=== PATIENT | female | born 1965 | race Two or more races ===

== ENCOUNTER 2024-09-13 15:07 | Outpatient (AMB) | payer OTHER, SELFPAY ==
[2024-09-13 15:08] VITALS: BP 142/100; PULSE 82
--- NOTE | 2024-09-13 15:08 | MHC.OFFVIS ---
Vital Signs 09/13/24 15:08 Weight 130 lb 8.218 oz BP 142/100 H Blood Pressure Location Lt brachial Position Sitting Pulse 82 Pulse Source Pulse Oximeter Intake Visit Reasons: OA/LM Intake Note: New patient externally referred by Ancelmo Morales NP, Internal Medicine [place]. Patient presents for +NATHAN. Location? How long? Rx used? Umbrella Supervisor Required: No Accompanied by: Self / Same As Patient Allergies No Known Allergies Allergy (Verified 09/13/24 15:13) Medication List - Last Reconciled 09/13/24 by Jojo Back MD clonazepam 1 mg PO BEDTIME trazodone 100 mg PO BEDTIME PRN HPI Comments Details: Patient is a 59-year-old female current everyday smoker with hypertension c/b CAD, hyperlipidemia, depression, history of cocaine abuse complicated by septal perforation, tachycardia on metoprolol, hematuria, and fibromyalgia here today to establish care. Patient complains of whole body pain. - hands: sometimes fingers will tighten up - Muscles: get muscle contraction - Knees: make noise and hurt. - Back - Feet Currently taking care of her elderly mom from [place]. This has been difficult for her and causes her significant stress [facility] Medical History (Updated 09/13/24 @ 16:23 by Jojo Back MD) Fibromyalgia Osteoarthritis of knees, bilateral Review of Systems Const Details: Review of Systems Constitutional: Denies fever, chills, weight loss ENT: Denies vision changes, eye pain or eye redness, dental caries, dry mouth GI: Denies nausea, vomiting, diarrhea, abdominal pain, change in BM Pulm: Denies SOB, CARDOZA, hemoptysis. Positive for wheezing Cards: Denies chest pain, palpitations Skin: Denies Raynaud's, rash, nail changes, photosensitivity, COMM[employer]CIAL [employer] ACCOUNT ASSISTANT: Denies weakness, paresthesias. Positive for headaches and falls MSK: as per HPI All other systems reviewed and are unremarkable except noted above Physical Exam Physical Examination CONSTITUITIONAL Patient alert and cooperative. Well appearing and in no apparent painful distress HEENT Conjunctiva and sclera clear. Pupils equal round and reactive to light. No lymphadenopathy. CHEST/RESPIRATORY SYSTEM Normal respiratory effort and able to speak in complete sentences. Clear to auscultation bilaterally. No crackles, rales, rhonchi, wheezes heard. CARDIAC SYSTEM Regular rate and rhythm. S1 and S2 heard no murmurs. 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 No deformities noted. No synovitis noted to the MCPs, PIPs or DIPs. No tenderness to palpation of these joints. Wrists: Full range of motion at the wrists without pain. No tenderness to palpation or synovitis noted to the wrists. Elbows: Full range of motion without pain. No tenderness, weakness, swelling, increased warmth or erythema. Shoulders: Full range of motion without pain. No tenderness, weakness, swelling, increased warmth or erythema. Hips: Full range of motion without pain. Hip bursa: No tenderness to palpation Knees: Full range of motion. No tenderness, swelling, increased warmth or erythema.?No effusion or crepitations Ankles: Full range of motion. No tenderness, swelling, increased warmth or erythema.? Feet: Negative squeeze test. No tenderness to palpation or swelling of the MTPs. Tender points:?No tenderness to palpation of the bilateral trapezius, supraspinatus, greater trochanters, anterior costochondral junctions, bilateral gluteal areas, bilateral suboccipital muscle insertions SKIN Skin intact without rashes. Results Reviewed Results Reviewed: No labs or imaging available. Assessment & Plan Assessment & Plan (1) Osteoarthritis of knees, bilateral: Code(s): M17.0 - Bilateral primary osteoarthritis of knee Category: Medical Qualifiers: Osteoarthritis type: primary Qualified Code(s): M17.0 - Bilateral primary osteoarthritis of knee Plan: #Primary OA bilateral knees Patient complain of widespread pain particularly in her hands and her knees. Knees consistent with osteoarthritis. We will check x-rays. Patient has tried topical diclofenac and gabapentin with no relief. Patient is requesting tramadol. We will prescribe tramadol 50 mg daily. Plan - XR Knees - Tramadol 50mg daily - RTC 6 months (2) Fibromyalgia: Code(s): M79.7 - Fibromyalgia Category: Medical Plan: #Fibromyalgia Patient with widespread pain, elevated widespread pain index and elevated somatic symptoms severity score. Has tried gabapentin in the past. We will trial tramadol Patient also complain of ankle pain and hand pain we will get x-rays of this. Plan I spent 45 minutes reviewing the record and labs, taking a history, examining the patient, discussing the treatment plan and documenting in the medical record Orders: Orders XR hand wrist RT Today M17.0 - Bilateral primary osteoarthritis of knee, M79.7 - Fibromyalgia XR hand wrist LT Today M17.0 - Bilateral primary osteoarthritis of knee, M79.7 - Fibromyalgia XR ankle LT min 3V Today M17.0 - Bilateral primary osteoarthritis of knee, M79.7 - Fibromyalgia XR ankle RT min 3V Today M17.0 - Bilateral primary osteoarthritis of knee, M79.7 - Fibromyalgia XR knee LT 3V Today M17.0 - Bilateral primary osteoarthritis of knee, M79.7 - Fibromyalgia XR knee RT 3V Today M17.0 - Bilateral primary osteoarthritis of knee, M79.7 - Fibromyalgia XR knee standing BI Today M17.0 - Bilateral primary osteoarthritis of knee, M79.7 - Fibromyalgia Medications: New tramadol 50 mg PO DAILY 90 tabs 1RF M17.0 - Bilateral primary osteoarthritis of knee, M79.7 - Fibromyalgia Coding Level of Care Code New Pt Level 4 (74244) Diagnoses Primary osteoarthritis of both knees M17.0 Osteoarthritis type: primary Fibromyalgia M79.7
--- OUTSIDE RECORDS SUMMARY | 2024-09-13 16:48 | XMS_ITS | Continuity of Care Document ---
Author Organization [place] - [facility], [facility] Address [address] [place] [address] Care Team Providers Care Property Claims Manager Name Role Phone SOUMYA TO Primary Care Provider Assessment No assessment recorded. Plan of Treatment Reminders Order Date Submit Date Provider Last Modified By Organization Details Last Modified Time Details Appointments None recorded. Lab None recorded. Referral None recorded. Procedures None recorded. Surgeries None recorded. Imaging None recorded. Medication Orders doxycycline hyclate [address] [facility]/Pharmacy #[id number], [address] [place], [address], 4 15:45:43 Patient TargetsNo targets recorded. Patient InstructionsNo instructions recorded. Reason for Referral None Reported. Problems Name Problem SNOMED Code Status Onset Date Resolution Date Notes Provider Name and Address Organization Details Recorded Time Disorder of nasal sinus 7052402 Active 2018 Other specified disorders of nose and nasal sinuses; Note: Date Diagnosed: 09/28/2018 11:35 AM (J34.89) Perforat ion of nasal septum NOS; Note: Date Diagnosed: 09/25/2018 2:18 PM (J34.89) ; Start Date : 09/25/2018 Not Available [facility] 4 02:17:27 Disorder of the nose 67865830 Active 2018 Other specified disorders of nose and nasal sinuses; Note: Date Diagnosed: 09/28/2018 11:35 AM (J34.89) Perforat ion of nasal septum NOS; Note: Date Diagnosed: 09/25/2018 2:18 PM (J34.89) ; Start Date : 09/25/2018 Not Available [facility] 4 02:17:28 Nasal congestion 29295506 Active 2018 Nasal congestion ; Note: Date Diagnosed: 12/12/2018 9:18 AM (R09.81) Not Available [facility] 4 02:17:58 Perforatio n of nasal septum 03992186 Active 2023 ROMEO RANKIN MD [address] [facility],[place] [address], [facility] [place], [address] , [facility] 4 15:42:30 Acute sinusitis 00351665 Active 2023 ROMEO RANKIN MD [address] [facility],[place] [address], [facility] [place], [address] , [facility] 4 15:43:55 Notes:Cocaine use, unspecifi ed Note: Date Diagnosed: 11/03/2018 3:48 PM (F14.9) Note: Date Diagnosed: 11/03/2018 3:48 PM (F14.9) Problem Notes None recorded. Procedures Surgical History Date Name Laterality Status Provider Name and Address Organization Details Recorded Time 07/31/2024 JMSNasal/S inus Endoscopy- DEBRIDEMEN T completed ROMEO RANKIN MD [address] [facility],[place] [address], [place], [address], [facility] 07/31/2024 15:42:24 Imaging Results None recorded. Procedure Notes None recorded. Medical Equipment None Reported. Medications Name Sig Start Date Stop Date Status Note LastModified by Organization Details LastModified Time bupropion HCl SR 150 mg tablet,12 hr sustained -release TAKE 1 TABLET BY MOUTH TWICE DAILY active Not Available Not Available No t Available clonidine HCl 0.1 mg tablet TAKE 1 TABLET BY MOUTH TWICE A DAY FOR 30 DAYS active Not Available Not Available No t Available venlafaxi ne ER 75 mg capsule,e xtended release 24 hr TAKE 1 CAPSULE BY MOUTH EVERY MORNING FOR ANXIETY- TAKE WITH 150MG active Not Available Not Available No t Available doxycycli ne hyclate 100 mg capsule Take 1 capsule twice a day by oral route for 14 days. active Not Available Not Available No t Available ipratropi um 0.5 mg-albute rol 3 mg (2.5 mg base)/3 mL nebulizat ion soln INHALE 3 ML (1 VIAL) VIA NEBULIZE R EVERY 6 HOURS FOR 30 DAYS active Not Available Not Available No t Available tizanidin e 2 mg tablet TAKE 1 TABLET NEEDED FOR SPASM ORALLY THREE TIMES A DAY 10 DAYS active Not Available Not Available No t Available cetirizin e 10 mg tablet TAKE 1 TABLET BY MOUTH EVERY DAY FOR 90 DAYS active Not Available Not Available No t Available ketotifen 0.025 % (0.035 %) eye drops INSTILL 1 DROP INTO BOTH EYES TWICE A DAY active Not Available Not Available No t Available senna 8.6 mg tablet TAKE 2 TABLETS BY MOUTH AT BEDTIME NEEDED FOR 30 DAYS active Not Available Not Available No t Available clonazepa m 1 mg tablet TAKE 1 TABLET BY MOUTH THREE TIMES A DAY active Not Available Not Available No t Available venlafaxi ne ER 150 mg capsule,e xtended release 24 hr TAKE 1 CAPSULE BY MOUTH EVERY DAY IN THE MORNING active Not Available Not Available No t Available omeprazol e 40 mg capsule,d elayed release TAKE 1 CAPSULE BY MOUTH EVERY DAY active Not Available Not Available No t Available tramadol 50 mg tablet TAKE 1 TABLET BY MOUTH EVERY 8 HOURS NEEDED active Not Available Not Available No t Available estradiol 1 mg tablet TAKE 1 TABLET BY MOUTH EVERY DAY active Not Available Not Available No t Available calcium 500 mg (as calcium carbonate 1,250 mg) tablet TAKE 1 TABLET BY MOUTH TWICE A DAY WITH MEALS active Not Available Not Available No t Available trazodone 100 mg tablet TAKE 1 TABLET BY MOUTH EVERYDAY AT BEDTIME active Not Available Not Available No t Available rizatript an 10 mg disintegr ating tablet PLEASE SEE ATTACHED FOR DETAILED DIRECTIO NS active Not Available Not Available No t Available lisinopri l 10 mg tablet TAKE 1 TABLET BY MOUTH EVERY DAY active Not Available Not Available No t Available lidocaine 5 % topical patch APPLY 1 PATCH DAILY EXTERNAL LY AND REMOVE AFTER 12 HOURS FOR 30 DAYS. 07/31 completed Not Available Not Available Not Available gabapenti n 300 mg capsule TAKE 1 CAPSULE BY MOUTH TWICE A DAY FOR 30 DAYS active Not Available Not Available No t Available gabapenti n 100 mg capsule TAKE 1 CAPSULE BY MOUTH THREE TIMES A DAY FOR 30 DAYS 07/31 completed Not Available Not Available Not Available metoprolo l succinate ER 25 mg tablet,ex tended release 24 hr TAKE 1 TABLET BY MOUTH EVERY DAY active Not Available Not Available No t Available ibuprofen 600 mg tablet Take 1 tablet by mouth three times a day as needed 2018 active Medicati on ID: [id number] D uration Value: 14 Prescri bed By Name: CINTIA Jennings nd Name: marti n Send Method: E-Prescr ibed Sub s Allowed: subs OK Medic ationGen ericName : ibuprofe n Not Available Not Available Not Available albuterol sulfate HFA 90 mcg/actua tion aerosol inhaler INHALE 2 PUFFS BY MOUTH EVERY 4 TO 6 HOURS NEEDED active Not Available Not Available No t Available fluticaso ne propionat e 50 mcg/actua tion nasal spray,perry pension SPRAY 1 SPRAY INTO EACH NOSTRIL EVERY DAY FOR 90 DAYS active Not Available Not Available No t Available neomycin 3.5 mg/g-poly myxin B 10,000 unit/g-de xameth 0.1 % eye oint APPLY AT BEDTIME INTO BOTH EYES active Not Available Not Available No t Available cyclospor ine 0.05 % eye drops in a dropperet te INSTILL 1 DROP INTO BOTH EYES TWICE A DAY active Not Available Not Available No t Available Symbicort 80 mcg-4.5 mcg/actua tion HFA aerosol inhaler TAKE 2 PUFFS BY MOUTH TWICE A DAY IN THE MORNING AND IN THE EVENING active Not Available Not Available No t Available Vitals Date Recorded Body height Body mass index (BMI) Body weight Provider Name and Address Organization Details Last Updated DateTime 07/31/2024 162.56 cm 21.6 kg/m2 34353.64 g Carmella Yee [place] - [facility] 07/31/2024 15:09:19 Social History None recorded. Functional Status None recorded. Mental Status None recorded. Family History Nothing Reported. Medical History Condition Response Anxiety Y Heart Attack ([place]) Y Migraines Y Hypertension Y Depression Y Asthma Y Gynecological HistoryNo gynecological history recorded. Obstetrics History GPAL:G 0 P 0 0 0 0 Past Encounters Encounter ID Performer Location Encounter Start Date Encounter Closed Date Diagnosis/Indication Diagnosis SNOMED-CT Code Diagnosis ICD10 Code Diagnosis Note [id number] ROMEO RANKIN MD [facility] [address] [address] 07/31/2024 14:32:31 07/31/2024 15:48:26 Perforation of nasal septum 20905383 J34.89 I debrided her nose endoscopic ally of crusting. No obvious sinus infection however given her pain I will treat with abx. I encouraged BID saline rinses and the use of ayr gel. Acute sinusitis 81773602 J01.90 will treat with abx Health Concerns Section Related Observation LastModified by Organization Detai ls LastModified Time None Recorded Concern Status LastModified by Organization Details LastModified Time None Recorded Payers Encounter Date Sequence Insurance Name Policy Number Policy Crabtree Covered Member ID Crabtree Member ID Guarantor Name 07/31/2024 1 [facility] - DOS ON OR AFTER 2022 - [employer] OPT[employer] (MEDICARE REPLACEMENT/ADV ANTAGE - HMO) Cindy Mckenna [id number] Cindy Mckenna Notes Date Note Type Note Provider Name and Address Organization Details Recorded Time 07/31/2024 text/html She has a history of sinus surgery. She reports for 1 year she has had trouble breathing through her nose. She has trouble eating because of mucus which comes out of her nose. Hx of cocaine use and septal perforation. ROMEO RAKNIN MD [address] [place] [address], [place], [address], [facility] - [facility] 07/31/2024 15:45:44 OBGyn Episode No OBEpisode recorded.
--- OUTSIDE RECORDS SUMMARY | 2024-09-13 16:48 | XMS_ITS | Data Portability ---
Author Organization [place] - [facility], Allergy Address [address] [place] [address] Care Team Providers Care Advertising Statistical Clerk Name Role Phone SOUMYA TO Primary Care Provider Assessment No assessment recorded. Plan of Treatment Reminders Order Date Submit Date Provider Last Modified By Organization Details Last Modified Time Details Appointments None recorded. Lab None recorded. Referral None recorded. Procedures None recorded. Surgeries None recorded. Imaging None recorded. Medication Orders doxycycline hyclate 100 mg capsule 2023 024 [facility]/Pharmacy #[id number], [address] [place], [address], 4 15:45:43 Patient TargetsNo targets recorded. Patient InstructionsNo instructions recorded. Reason for Referral None Reported. Problems Name Problem SNOMED Code Status Onset Date Resolution Date Notes Provider Name and Address Organization Details Recorded Time Disorder of nasal sinus 8523753 Active 2018 Other specified disorders of nose and nasal sinuses; Note: Date Diagnosed: 09/28/2018 11:35 AM (J34.89) Perforat ion of nasal septum NOS; Note: Date Diagnosed: 09/25/2018 2:18 PM (J34.89) ; Start Date : 09/25/2018 Not Available [facility] 4 02:17:27 Disorder of the nose 46608032 Active 2018 Other specified disorders of nose and nasal sinuses; Note: Date Diagnosed: 09/28/2018 11:35 AM (J34.89) Perforat ion of nasal septum NOS; Note: Date Diagnosed: 09/25/2018 2:18 PM (J34.89) ; Start Date : 09/25/2018 Not Available [facility] 4 02:17:28 Nasal congestion 14817651 Active 2018 Nasal congestion ; Note: Date Diagnosed: 12/12/2018 9:18 AM (R09.81) Not Available [facility] 4 02:17:58 Perforatio n of nasal septum 89233730 Active 2023 ROMEO RANKIN MD [address] [facility],[place] [address], [place], [address] , [facility] 4 15:42:30 Acute sinusitis 04972394 Active 2023 ROMEO RANKIN MD [address] [facility],[place] [address], [place], [address] , [facility] 4 15:43:55 Notes:Cocaine use, unspecifi ed Note: Date Diagnosed: 11/03/2018 3:48 PM (F14.9) Note: Date Diagnosed: 11/03/2018 3:48 PM (F14.9) Problem Notes None recorded. Procedures Surgical History Date Name Laterality Status Provider Name and Address Organization Details Recorded Time 07/31/2024 JMSNasal/S inus Endoscopy- DEBRIDEMEN T completed ROMEO RANKIN MD [address] [facility],[place] [address], [place], [address], [facility] 07/31/2024 15:42:24 Imaging Results None recorded. Procedure [...] as needed 2018 active Medicati on ID: [id number] D uration Value: 14 Prescri bed By Name: CINTIA Jennings nd Name: marti denson Send Method: E-Prescr ibed Sub s Allowed: [...] Updated DateTime 07/31/2024 162.56 cm 21.6 kg/m2 00871.64 g Carmella Yee [place] - [facility] 07/31/2024 15:09:19 Social History None recorded. Functional Status None recorded. Mental Status None recorded. Family History Nothing Reported. Medical History Condition Response Anxiety Y Heart Attack ([place]) Y Migraines Y Hypertension Y Depression Y Asthma Y Gynecological HistoryNo gynecological history recorded. Obstetrics History GPAL:G 0 P 0 0 0 0 Past Encounters Encounter ID Performer Location Encounter Start Date Encounter Closed Date Diagnosis/Indication Diagnosis SNOMED-CT Code Diagnosis ICD10 Code Diagnosis Note [id number] ROMEO RANKIN MD [facility] [address] [address] 07/31/2024 14:32:31 07/31/2024 15:48:26 Perforation of nasal septum 44402860 J34.89 I debrided her nose endoscopic ally of crusting. No obvious sinus infection however given her pain I will treat with abx. I encouraged BID saline rinses and the use of ayr gel. Acute sinusitis 08632664 J01.90 will treat with abx Health Concerns Section Related Observation LastModified by Organization Detai ls LastModified Time None Recorded Concern Status LastModified by Organization Details LastModified Time None Recorded Advance Directives Directive None Recorded Payers Encounter Date Sequence Insurance Name Policy Number Policy Crabtree Covered Member ID Crabtree Member ID Guarantor Name 07/31/2024 1 [facility] - DOS ON OR AFTER 2022 - [employer] (MEDICARE REPLACEMENT/ADV ANTAGE - HMO) Cindy Mckenna [id number] Cindy Mckenna Notes Date Note Type Note Provider Name and Address Organization Details Recorded Time 07/31/2024 text/html She has a history of sinus surgery. She reports for 1 year she has had trouble breathing through her nose. She has trouble eating because of mucus which comes out of her nose. Hx of cocaine use and septal perforation. ROMEO RANKIN MD [address] [place] [address], [place], [address], [facility] - [facility] 07/31/2024 15:45:44 OBGyn Episode No OBEpisode recorded.
--- OUTSIDE RECORDS SUMMARY | 2024-09-13 16:48 | XMS_ITS ---
Author Organization [facility] Address [address] [place] [address] Care Team Providers Care Metal Milling Machine Operator Name Role Phone SOUMYA TO Primary Care Provider REASON FOR VISIT paperwork Encounters Encounter Location Date Provider Diagnosis [facility] [address] [facility] [address] [place] [address] 06/27/2024 SOUMYA TO PLAN OF TREATMENT Next Appt Details Provider Name:SOUMYA TO, 10/08/2024 02:45:00 PM, [address] [facility], [address], [place], [address], Progress Notes * SHANTA CHAPA MDOB: 5 (58 yo F)Acc No.[id number]:06/27/2024 Patient:??SHANTA CHAPA :1965?Age:58 Y?Sex:Fe male Address:[address] [place] [address] * true * Date:??
--- OUTSIDE RECORDS SUMMARY | 2024-09-13 16:48 | XMS_ITS ---
Author Organization [facility] Address [address] [place] [address] Care Team Providers Care Industrial Editor Name Role Phone SOUMYA TO Primary Care Provider REASON FOR VISIT Urgent visit request Encounters Encounter Location Date Provider Diagnosis [facility] [address] [facility] [address] [place] [address] 08/28/2024 SOUMYA TO PLAN OF TREATMENT Next Appt Details Provider Name:SOUMYA TO, 10/08/2024 02:45:00 PM, [address] [facility], [address], [place], [address], Progress Notes * SHANTA CHAPA MDOB: 5 (59 yo F)Acc No.[id number]:08/28/2024 Patient:??SHANTA CHAPA :1965?Age:59 Y?Sex:Fe male Address:[address] [place] [address] * true * Date:??
--- OUTSIDE RECORDS SUMMARY | 2024-09-13 16:48 | XMS_ITS ---
Author Organization [facility] Address [address] [place] [address] Care Team Providers Care Manager Respiratory Name Role Phone SOUMYA TO Primary Care Provider [phone] REASON FOR VISIT [employer] Encounters Encounter Location Date Provider Diagnosis [facility] [address] [place] [address] 08/27/2024 SOUMYA TO PLAN OF TREATMENT Next Appt Details Provider Name:SOUMYA TO, 10/08/2024 02:45:00 PM, [address] [place] [address], [facility] [address], [address], Progress Notes * SHANTA CHAPA MDOB: 5 (59 yo F)Acc No.[id number]:08/27/2024 Patient:??SHANTA CHAPA :1965?Age:59 Y?Sex:Fe male Address:[address] [place] [address] * true * Date:??
--- OUTSIDE RECORDS SUMMARY | 2024-09-13 16:49 | XMS_ITS | Patient Health Record ---
Author Organization [facility] Address [address] [place] [address] Care Team Providers Care Lead Java J2Ee Developer Name Role Phone SOUMYA TO Primary Care Provider ABHIJEET DENT Unavailable [phone] ALLERGIES Allergen (clinical drug ingredient) Drug/Non Drug Allergy documented on EMR Reaction Allergy Type Onset Date Status valproate Divalproex Sodium Unknown Drug Allergy Active RESULTS Component Value Reference Range Notes URINALYSIS Reviewed date:06/07/2024 10:15:59 AM Interpretation: Performing Lab: Notes/Report: RETURN ANOTHER TIME - 06/06/24--[facility] Note Original Ordering Provider: SOUMYA TO NP [employer], a member of [address] [address] Professor Of Early Childhood Education - Jenifer Galvan MD GLUCOSE, (UA) TNP NEGATIVE mg/dL Testing not performed Reason: PATIENT UNABLE TO VOID Note Original Ordering Provider: SOUMYA TO NP [employer], a member of [address] [address] Professor Of Early Childhood Education - Jenifer Galvan MD GLYCOHEMOGLOBIN PROFILE Reviewed date:06/07/2024 07:57:07 AM Interpretation: Performing Lab: Notes/Report: GLYCATED HEMOGLOBIN A1C 5.7 <6.5 % ESTIMATED AVERAGE GLUCOSE 117 COMPREHENSIVE METABOLIC PANE L Reviewed date:06/07/2024 12:48:10 PM Interpretation: Performing Lab: Notes/Report: Note Original Orderi ng Provider: SOUMYA TO NP GLUCOSE 119 70-100 mg/dL Reference range applicable to fasting specimens only BUN 11 5-25 mg/dL CREAT 0.84 0.5-1.1 mg/dL GLOMERULAR FILTRATION RATE 81 >60 This eGFR result was calculated using the CKD-EPI 2020 Creatinine Equation SODIUM 142 135-145 mEq/L POTASSIUM 3.8 3.5-5.5 mmol/L CHLORIDE 105 96-110 mmol/L CO2 30 21-32 mmol/L ANION GAP 7 3-11 RECHECKED CALCIUM 10.4 8.5-10.5 mg/dL TOTAL PROTEIN 7.6 6.0-8.0 G/dL ALBUMIN 3.8 3.2-5.0 G/dL BILI,TOTAL 0.4 0.0-1.4 mg/dL SGOT 13 10-42 U/L SGPT 12 10-60 U/L ALK PHOS 96 42-121 U/L CBC WITH AUTO DIFF Reviewed date:06/07/2024 07:57:07 AM Interpretation: Performing Lab: Notes/Report: WBC 8.1 4.8-10.8 x10-3/uL RBC 5.0 3.8-4.8 x10-6/uL HEMOGLOBIN 14.2 11.5-16.0 g/dL HEMATOCRIT 46.6 35-47 % MCV 93.6 79-98 fL MCH 28.5 27-32 pg MCHC 30.5 32-37 g/dL RDW 13.3 11-15 % PLT COUNT 380 130-400 x10-3/uL MEAN PLATELET VOLUME 8.7 7-11 fL NRBC % AUTO 0.0 <1 % NEUT % 57.7 LYMPH % 30.7 MONO % 7.0 EOS % 3.6 BASO % 0.5 IMMATURE GRANULOCYTES % 0.5 NRBC # AUTO 0.00 <0.1 x10-3/uL ABSOLUTE NEUT 4.67 1.5-7.0 x10-3/uL LYMPH # 2.49 1-5.0 x10-3/uL MONO # 0.57 0.2-1.0 x10-3/uL EOS # 0.29 0-0.5 x10-3/uL BASO # 0.04 0-0.2 x10-3/uL IMMATURE GRANULOCYTES # 0.04 0-0.03 x10-3/uL LIPID PROFILE Reviewed date:06/07/2024 12:48:10 PM Interpretation: Performing Lab: Notes/Report: CHOLESTEROL 203 0-200 mg/dL TRIGLYCERIDES 180 0-150 mg/dL VITAMIN D, 25-HYDROXY Reviewed date:06/07/2024 12:48:10 PM Interpretation: Performing Lab: Notes/Report: VITAMIN D, 25-HYDROXY 40 30-80 ng/mL TSH Reviewed date:06/07/2024 12:48:10 PM Interpretation: Performing Lab: Notes/Report: TSH 0.34 0.40-4.00 uIU/ml TOTAL T4 Reviewed date:06/07/2024 12:48:10 PM Interpretation: Performing Lab: Notes/Report: TOTAL T4 8.2 4.5-10.9 ug/dl REASON FOR REFERRAL Reason [facility] Nasal Septal deviation and Uncontrolled Allergy Diagnosis 1 Deviated nasal septu m (J34.2) Diagnosis 2 Seasonal allergies ( J30.2) Referral Organization [place] [address] Referring Provider First Name SOUMYA Referring Provider Last Name BORHOT Referring Provider Speciality Internal M edicine Referred Provider Specialty Ear, nose an d throat surgeon General Notes YAMILETH KNUTSON 02/20 04:10:08 PM > faxed form with office notes & referral to ENT surgeons & gave pt phone # to call for appt Referral Priority Routine Reason Dr Rooney Diagnosis 1 Encounter for screen ing for malignant neoplasm of skin (Z12.83) Referral Organization [place] [address] Referring Provider First Name SOUMYA Referring Provider Last Name BORHOT Referring Provider Speciality Internal M edicine Referred Provider Specialty Dermatology General Notes YAMILETH KNUTSON 02/20 04:13:58 PM > faxed referral to Dr Rooney - gave pt phone # to call for appt p: [phone] f: [phone] Referral Priority Routine Reason Pt needing referral to ENT Diagnosis 1 Deviated nasal septu m (J34.2) Diagnosis 2 Chronic sinusitis, u nspecified (J32.9) Diagnosis 3 Seasonal allergies ( J30.2) Referral Organization [place] [address] Referring Provider First Name SOUMYA Referring Provider Last Name BORHOT Referring Provider Speciality Internal M edicine Referred Provider Specialty Ear, nose an d throat surgeon General Notes [place] [facility], [facility], [address] [place] [address], [address], [place] [address], , fax Clinical Notes Dorothy Higuera 05/04 11:51:27 AM >, Rasta Christopher 05/15/2024 04:22:16 PM > The patient is scheduled for an appointment on 07/31/2024 at 2:[address] Ollie Villa at the [place] office. I called the patient and left a detailed voicemail Referral Priority Urgent Reason [place] [facility] [place] Diagnosis 1 Primary osteoarthrit is, unspecified site (M19.91) Diagnosis 2 Fibromyalgia (M79.7) Referral Organization [facility] 119 Referring Provider First Name SOUMYA Referring Provider Last Name ZULEIKA Referring Provider Speciality Internal M edicine Referred Provider Specialty Rheumatology General Notes Aydee Garcias 06/06/2024 03:47:25 PM > Referral with attachment faxed to [place]. Jauregui [place] [facility] [place]. p: [phone] f: [phone]. Pt given number to call and schedule visit. Clinical Notes Rasta Christopher 03/2024 08:46:37 AM > Office confirmed receipt of referral. I called the patient and informed her that she can call directly to schedule an appointment with them, Rasta Christopher 06/14/2024 11:38:08 AM > Scheduled for 08/14 at 8 am. Pt aware Referral Priority Routine MEDICATIONS Medication SIG (Take, Route, Frequency, Duration) Notes Start Date End Date Status traZODone HCl 100 MG 1 tablet at bedtime Orally Once a day for 30 days Active Ventolin HFA 108 (90 Base) MCG/ACT INHALE 2 PUFFS BY MOUTH 4TIMES A DAY NEEDED for SOB Inhalation every 6 hrs for 25 Active clonazePAM 0.5 MG 1 tablet at bedtime Orally twice a day for 30 days Active Effexor XR 75 MG 1 capsule with food Orally Once a day Active Effexor XR 150 MG 1 capsule with food Orally Once a day Active tiZANidine HCl 2 MG 1 tablet as needed p rn spasm Orally Three times a day for 10 days Active Albuterol Sulfate HFA 108 (90 Base) MCG/ACT INHALE 2 PUFFS BY MOUTH 4 TIMES A DAY NEEDED FOR FOR SHORTNESS OF BREATH EVERY 6 HRS Active Gabapentin 600 MG 1 tablet Orally twic e a day for 30 days 06/06/2024 Active Oyster Shell Calcium 500 MG TAKE 1 TABLE T BY MOUTH TWICE A DAY WITH MEALS FOR 30 DAYS for 90 Active Comp Air Compressor Nebulizer - DIRECTED PRN DX ASTHMA TUBING AND MASK AND MACHIEN 30 DAYS Active Divalproex Sodium ER 500 MG 2 tablet Ora lly Once a day Active Breo Ellipta 100-25 MCG/INH 1 puff Inhal ation Once a day for 90 days 03/29/2018 Active Ipratropium-Albuterol 0.5-2.5 (3) MG/3ML INHALE 3 ML (1 VIAL) VIA NEBULIZER EVERY 6 HOURS FOR 30 DAYS for 30 Active Restasis 0.05 % 1 drop into affected eye Ophthalmic Twice a day Active Fluticasone Propionate 50 MCG/ACT 1 spray in each nostril Nasally Once a day for 90 days Active Senna-Time 8.6 MG TAKE 2 TABLETS BY [facility] AT BEDTIME NEEDED FOR 30 DAYS for 30 Active Omeprazole 40 MG TAKE 1 CAPSULE BY [facility] EVERY DAY for 90 Active buPROPion HCl ER (SR) 150 MG TAKE 1 TABLET BY MOUTH TWICE DAILY for 90 Active ZyrTEC Allergy 10 MG 1 tablet Orally Onc e a day for 90 days Active Gabapentin 100 MG 1 capsule Orally Onc e a day for 90 days Active Fluticasone Propionate 50 MCG/ACT 1 spray in each nostril Nasally Once a day for 30 days 02/20/2021 Active cloNIDine HCl 0.1 MG TAKE 1 TABLET BY [facility] TWICE A DAY FOR 30 DAYS for 90 Active Levaquin 750 MG 1 tablet Orally Once a day for 5 days 02/08/2023 Active Vitamin D 50 MCG (1999 UT) TAKE 1 TABLET BY MOUTH EVERY DAY FOR 30 DAYS for 30 Active Gabapentin 100 MG 1 capsule Orally thr ee times a day for 30 days 06/02/2023 Active Gabapentin 300 MG 1 capsule Orally twi ce a day for 30 days Active Lidocaine 5 % APPLY 1 PATCH DAILY EXTERNALLY AND REMOVE AFTER 12 HOURS FOR 30 DAYS. for 60 Active oxyCODONE HCl 5 MG 1 tablet as needed O rally every 12 hours for 30 days Active IMMUNIZATIONS Vaccine Route Administration Date Status Comme nts influenza IM Intramuscular 08/08/2018 Administered influenza IM Intramuscular 07/08/2020 Administered influenza IM Intramuscular 06/02/2023 Administered Influenza, seasonal, injectable, preservative free, 3 yrs and above IM Intramuscular 10/30/2019 Administered SOCIAL HISTORY Tobacco Use: Social History Observation Description Date Details (start date - stop date) Current Smoker NA - NA Sex Assigned At : Social History Observation Description Sex Assigned At Unknown Tobacco Use/Smoking Question Answer Notes Are you a current smoker PROBLEMS Problem Type ICD Code Onset Dates Problem Status W/U Status Risk SNOMED Code Notes Problem Asthma, unspecified, unspecified status (493.90) Active confirmed Asthma (diso rder) (507976770) Problem Vitamin D deficiency, unspecified (E55.9) Active confirmed 52319584 Problem Hyperlipidemia, unspecified (E78.5) Active confirmed Hyperlipidemia (32175379) Problem Dehydration (E86.0) Active confirmed Dehydration (11742608) Problem Cocaine abuse, uncomplicated (F14.10) Active confirmed Cocaine abuse (93496441) Problem Cocaine dependence with withdrawal (F14.23) Active confirmed Problem Nicotine dependence, cigarettes, uncomplicated (F17.210) Active confirmed Tobacco user (723878821) Problem Insomnia due to medical condition (G47.01) Active confirmed Insomnia (433482184) Problem Chronic pain syndrome (G89.4) Active confirmed Chronic sheree n syndrome (658881327) Problem Chronic sinusitis, unspecified (J32.9) Active confirmed Chronic sinusit is (23008297) Problem Deviated nasal septum (J34.2) Active confirmed 944480973 Problem Unspecified asthma, uncomplicated (J45.909) Active confirmed Uncomplicated asthma (disorder) (021534957) Problem Primary osteoarthritis, unspecified site (M19.91) Active confirmed 063374512 Problem Fibromyalgia (M79.7) Active confirmed Fibromyalgia (598800128) Problem 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) Active confirmed Problem Dysphagia, unspecified (R13.10) Active confirmed Dysphagia (07244061) Problem Encounter for observation for suspected toxic effect from ingested substance ruled out (Z03.6) Active confirmed Problem Encounter for screening for malignant neoplasm of skin (Z12.83) Active confirmed 978439176 Problem Encounter for screening for lipoid disorders (Z13.220) Active confirmed Lipid screening (766324682) Problem Unsteady gait (R26.81) Active confirmed Unsteady gait (74657036) Problem Carpal tunnel syndrome of right wrist (G56.01) Active confirmed Carpal tunnel syndrome of right wrist (870791277012360) Problem Acquired hypothyroidism (E03.9) Active confirmed 458469083 Problem Sleep apnea, unspecified type (G47.30) Active confirmed Sleep apnea (52500287) Problem Depression, unspecified depression type (F32.9) Active confirmed Depressive disorder (disorder) (41599406) Problem Seasonal allergies (J30.2) Active confirmed Seasonal a llergy (589809046) Problem Diabetes mellitus screening (Z13.1) Active confirmed Diabetes m ellitus screening (691845218) Problem Constipation, unspecified constipation type (K59.00) Active confirmed 58123146 Problem Encounter for annual health examination (Z00.00) Active confirmed Annual health maintenance examination (82861233) Problem Mild intermittent asthma without complication (J45.20) Active confirmed 774999763 Problem Primary hypertension (I10) Active confirmed 04727374 Problem Nicotine dependence with nicotine-induced disorder, unspecified nicotine product type (F17.209) Active confirmed Mental disord er caused by drug (170105846) Problem Encounter for screening for endocrine disorder (Z13.29) Active confirmed Endocrine/ metabol ic screening (264833007) VITAL SIGNS Heart Rate 84 /min 06/06/2024 Oximetry 93 % 06/06/2024 Blood pressure diastolic 60 mm Hg 06/06/2024 Height 63 in 06/06/2024 Blood pressure systolic 110 mm Hg 06/06/2024 Weight 124 lbs 06/06/2024 BMI 21.96 kg/m2 06/06/2024 Encounters Encounter Location Date Provider Diagnosis [place] [address] [address] 10/03/2023 SOUMYA BORHOT Primary hypertension I10 ; Fibromyalgia M79.7 ; Depression, unspecified depression type F32.9 ; Nicotine dependence with nicotine-induced disorder, unspecified nicotine product type F17.209 ; Mild intermittent asthma without complication J45.20 ; Hyperlipidemia, unspecified E78.5 ; Seasonal allergies J30.2 and Hematuria, unspecified type R31.9 [place] [address] [address] 02/21/2024 SOUMYA BORHOT Primary hypertension I10 ; Fibromyalgia M79.7 ; Depression, unspecified depression type F32.9 ; Nicotine dependence with nicotine-induced disorder, unspecified nicotine product type F17.209 ; Mild intermittent asthma without complication J45.20 ; Hyperlipidemia, unspecified E78.5 ; Seasonal allergies J30.2 and Hematuria, unspecified type R31.[address] [facility] [address] [place], [place] 06/06/2024 SOUMYA TO Annual physical exam Z00.00 ; Encounter for screening for depression Z13.31 ; Encounter for screening for other disorder Z13.89 ; Primary hypertension I10 ; Fibromyalgia M79.7 ; Depression, unspecified depression type F32.9 ; Nicotine dependence with nicotine-induced disorder, unspecified nicotine product type F17.209 ; Mild intermittent asthma without complication J45.20 ; Seasonal allergies J30.2 and Primary osteoarthritis, unspecified site M19.[address] [facility] [address] [place] [address] 02/21/2024 [facility] [address] [place] [address] 03/01/[address] [place] [address] 03/22/2024 [facility] [address] [place] [address] 03/27/2024 [facility] [address] [place], [place] 04/10/[address] [place], [place] 04/23/2024 SOUMYA [facility] [address] [place], [place] 05/04/2024 SOUMYA [facility] [address] [place] [address] 05/09/2024 SOUMYA [facility] [address] [place] [address] 05/16/2024 SOUMYA [facility] [address] [place] [address] 06/07/2024 SOUMYA TO Hyperlipidemia, unspecified E78.5 and Acquired hypothyroidism E03.[address] [place] [address] 06/15/[address] [place] [address] 06/27/2024 SOUMYA TO [facility] [address] [place] [address] 08/27/[address] [place] [address] 08/28/2024 SOUMYA TO [address] [place] [address] 02/15/2024 TALAL DENT [address] [place] [address] 02/15/2024 TALAL DENT [address] [place] [address] 02/17/2024 TALAL DENT [address] [place] [address] 02/17/2024 TALDC DENT [address] [place] [address] 04/16/2024 SOUMYA TO Seasonal allergies J30.2 and Osteopenia, unspecified location M85.80 ASSESSMENTS Encounter Date Diagnosis Assessment Notes Treatment Notes Treatment Clinical Notes Section Notes 10/03/2023 Primary hypertension (ICD-10 - I10) Patient here for MWV *update labs please Nasal Obstruction/Diff Breathing History of perforated septum and septal issues, issues breathing out of her nose History of cocaine abuse We will refer to ENT surgery # Hematuria Patient is followed by a Urologist Dr. Valadez and has a referral for a Soils Technician as well Irina Cystoscopy with biopsy showed no signs of malignancy. Patient is a chronic NSAID user for pain Pt is followed by renal/urology for hematuria/HTN #Weight loss: Patients TSH slightly low and we will monitor as her T3/T4 were both normal patient agreable. she states increased appetite and weight gain since her discharge from the hospital #Fibro: Patient will be referred to rheumatology for pain and we will review labs of NATHAN, ESR, CRP, and Rheum factor #Depression: Patient has trialed other medications like Cymbalta which we suggested for depression and fibromyalgia treatment but patient states she has failed in the past and is currently on Effexor. Patient will continue to take Effexor and is advised to call with increased depression. start gabapentin/tizanid ine send to pain mgt/rheum Patient also was given prescription for motorized scooter per her request incr gabapentin to 100mg TID* #Smoking Cessation Discussed using Wellbutrin for smoking cessation as Chantix and nicotine patch is contraindicated for this patient. We ordered Wellbutrin for the patient during todays visit and patient will start this medication and see if it helps with smoking as well as anxiety. Of note, some information is being carried forward from prior records for informational purposes only and is being cited so that efficiency, safety and quality of the patient's care is not compromised This note was prepared using voice recognition software and direct typing Please excuse inadvertent web press operator assistant or typing errors, or uncorrected word substitutions Although every attempt has been made by the provider to proofread this document, occasional misspellings and typographical errors may still be present Due to the previous pandemic, and the use of personal protective equipment (PPE) This may decrease voice recognition accuracy Inadvertent web press operator assistant errors may occur 02/21/2024 Primary hypertension (ICD-10 - I10) Acute Concerns/Problem List: 02/21/2024 *update labs please Dermatology referral for shave biopsy Nasal Obstruction/Diff Breathing History of perforated septum and septal issues, issues breathing out of her nose History of cocaine abuse We will refer to ENT surgery Hematuria resolved Patient is followed by a Urologist Dr. Valadez and has a referral for a Soils Technician as well Irina Cystoscopy with biopsy showed no signs of malignancy. Increase gabapentin to 200 3 times daily Depression: Patient has trialed other medications like Cymbalta which we suggested for depression and fibromyalgia treatment but patient states she has failed in the past and is currently on Effexor. Patient will continue to take Effexor and is advised to call with increased depression. start gabapentin/tizanid ine send to pain mgt/rheum Patient also was given prescription for motorized scooter per her request Of note, some information is being carried forward from prior records for informational purposes only and is being cited so that efficiency, safety and quality of the patient's care is not compromised This note was prepared using voice recognition software and direct typing Please excuse inadvertent web press operator assistant or typing errors, or uncorrected word substitutions Although every attempt has been made by the provider to proofread this document, occasional misspellings and typographical errors may still be present Due to the previous pandemic, and the use of personal protective equipment (PPE) This may decrease voice recognition accuracy Inadvertent web press operator assistant errors may occur 04/16/2024 Seasonal allergies (ICD-10 - J30.2) 06/06/2024 Encounter for screening for depression (ICD-10 - Z13.31) Acute Concerns/Problem List: 06/06/2024 MAWV Dated labs please today after the visit Scheduled to see ENT surgery later this month Please follow-up on colonoscopy screening Increase gabapentin to 600 mg twice a day with tizanidine MOLST/HCP Discussed and Filed Of note, some information is being carried forward from prior records for informational purposes only and is being cited so that efficiency, safety and quality of the patient's care is not compromised This note was prepared using voice recognition software and direct typing Please excuse inadvertent web press operator assistant or typing errors, or uncorrected word substitutions Although every attempt has been made by the provider to proofread this document, occasional misspellings and typographical errors may still be present Due to the previous pandemic, and the use of personal protective equipment (PPE) This may decrease voice recognition accuracy Inadvertent web press operator assistant errors may occur 06/06/2024 Annual physical exam (ICD-10 - Z00.00) Acute Concerns/Problem List: 06/06/2024 MAWV Dated labs please today after the visit Scheduled to see ENT surgery later this month Please follow-up on colonoscopy screening Increase gabapentin to 600 mg twice a day with tizanidine MOLST/HCP Discussed and Filed Of note, some information is being carried forward from prior records for informational purposes only and is being cited so that efficiency, safety and quality of the patient's care is not compromised This note was prepared using voice recognition software and direct typing Please excuse inadvertent web press operator assistant or typing errors, or uncorrected word substitutions Although every attempt has been made by the provider to proofread this document, occasional misspellings and typographical errors may still be present Due to the previous pandemic, and the use of personal protective equipment (PPE) This may decrease voice recognition accuracy Inadvertent web press operator assistant errors may occur 06/07/2024 Hyperlipidemia, unspecified (ICD-10 - E78.5) 06/07/2024 Acquired hypothyroidism (ICD-10 - E03.9) 04/16/2024 Osteopenia, unspecified location (ICD-10 - M85.80) 06/06/2024 Encounter for screening for other disorder (ICD-10 - Z13.89) Acute Concerns/Problem List: 06/06/2024 MAWV Dated labs please today after the visit Scheduled to see ENT surgery later this month Please follow-up on colonoscopy screening Increase gabapentin to 600 mg twice a day with tizanidine MOLST/HCP Discussed and Filed Of note, some information is being carried forward from prior records for informational purposes only and is being cited so that efficiency, safety and quality of the patient's care is not compromised This note was prepared using voice recognition software and direct typing Please excuse inadvertent web press operator assistant or typing errors, or uncorrected word substitutions Although every attempt has been made by the provider to proofread this document, occasional misspellings and typographical errors may still be present Due to the previous pandemic, and the use of personal protective equipment (PPE) This may decrease voice recognition accuracy Inadvertent web press operator assistant errors may occur 02/21/2024 Fibromyalgia (ICD-10 - M79.7) Acute Concerns/Problem List: 02/21/2024 *update labs please Dermatology referral for shave biopsy Nasal Obstruction/Diff Breathing History of perforated septum and septal issues, issues breathing out of her nose History of cocaine abuse We will refer to ENT surgery Hematuria resolved Patient is followed by a Urologist Dr. Valadez and has a referral for a Soils Technician as well Irina Cystoscopy with biopsy showed no signs of malignancy. Increase gabapentin to 200 3 times daily Depression: Patient has trialed other medications like Cymbalta which we suggested for depression and fibromyalgia treatment but patient states she has failed in the past and is currently on Effexor. Patient will continue to take Effexor and is advised to call with increased depression. start gabapentin/tizanid ine send to pain mgt/rheum Patient also was given prescription for motorized scooter per her request Of note, some information is being carried forward from prior records for informational purposes only and is being cited so that efficiency, safety and quality of the patient's care is not compromised This note was prepared using voice recognition software and direct typing Please excuse inadvertent web press operator assistant or typing errors, or uncorrected word substitutions Although every attempt has been made by the provider to proofread this document, occasional misspellings and typographical errors may still be present Due to the previous pandemic, and the use of personal protective equipment (PPE) This may decrease voice recognition accuracy Inadvertent web press operator assistant errors may occur 10/03/2023 Fibromyalgia (ICD-10 - M79.7) Patient here for MWV *update labs please Nasal Obstruction/Diff Breathing History of perforated septum and septal issues, issues breathing out of her nose History of cocaine abuse We will refer to ENT surgery # Hematuria Patient is followed by a Urologist Dr. Valadez and has a referral for a Soils Technician as well Irina Cystoscopy with biopsy showed no signs of malignancy. Patient is a chronic NSAID user for pain Pt is followed by renal/urology for hematuria/HTN #Weight loss: Patients TSH slightly low and we will monitor as her T3/T4 were both normal patient agreable. she states increased appetite and weight gain since her discharge from the hospital #Fibro: Patient will be referred to rheumatology for pain and we will review labs of NATHAN, ESR, CRP, and Rheum factor #Depression: Patient has trialed other medications like Cymbalta which we suggested for depression and fibromyalgia treatment but patient states she has failed in the past and is currently on Effexor. Patient will continue to take Effexor and is advised to call with increased depression. start gabapentin/tizanid ine send to pain mgt/rheum Patient also was given prescription for motorized scooter per her request incr gabapentin to 100mg TID* #Smoking Cessation Discussed using Wellbutrin for smoking cessation as Chantix and nicotine patch is contraindicated for this patient. We ordered Wellbutrin for the patient during todays visit and patient will start this medication and see if it helps with smoking as well as anxiety. Of note, some information is being carried forward from prior records for informational purposes only and is being cited so that efficiency, safety and quality of the patient's care is not compromised This note was prepared using voice recognition software and direct typing Please excuse inadvertent web press operator assistant or typing errors, or uncorrected word substitutions Although every attempt has been made by the provider to proofread this document, occasional misspellings and typographical errors may still be present Due to the previous pandemic, and the use of personal protective equipment (PPE) This may decrease voice recognition accuracy Inadvertent web press operator assistant errors may occur 10/03/2023 Depression, unspecified depression type (ICD-10 - F32.9) Patient here for MWV *update labs please Nasal Obstruction/Diff Breathing History of perforated septum and septal issues, issues breathing out of her nose History of cocaine abuse We will refer to ENT surgery # Hematuria Patient is followed by a Urologist Dr. Valadez and has a referral for a Soils Technician as well Irina Cystoscopy with biopsy showed no signs of malignancy. Patient is a chronic NSAID user for pain Pt is followed by renal/urology for hematuria/HTN #Weight loss: Patients TSH slightly low and we will monitor as her T3/T4 were both normal patient agreable. she states increased appetite and weight gain since her discharge from the hospital #Fibro: Patient will be referred to rheumatology for pain and we will review labs of NATHAN, ESR, CRP, and Rheum factor #Depression: Patient has trialed other medications like Cymbalta which we suggested for depression and fibromyalgia treatment but patient states she has failed in the past and is currently on Effexor. Patient will continue to take Effexor and is advised to call with increased depression. start gabapentin/tizanid ine send to pain mgt/rheum Patient also was given prescription for motorized scooter per her request incr gabapentin to 100mg TID* #Smoking Cessation Discussed using Wellbutrin for smoking cessation as Chantix and nicotine patch is contraindicated for this patient. We ordered Wellbutrin for the patient during todays visit and patient will start this medication and see if it helps with smoking as well as anxiety. Of note, some information is being carried forward from prior records for informational purposes only and is being cited so that efficiency, safety and quality of the patient's care is not compromised This note was prepared using voice recognition software and direct typing Please excuse inadvertent web press operator assistant or typing errors, or uncorrected word substitutions Although every attempt has been made by the provider to proofread this document, occasional misspellings and typographical errors may still be present Due to the previous pandemic, and the use of personal protective equipment (PPE) This may decrease voice recognition accuracy Inadvertent web press operator assistant errors may occur 02/21/2024 Depression, unspecified depression type (ICD-10 - F32.9) Acute Concerns/Problem List: 02/21/2024 *update labs please Dermatology referral for shave biopsy Nasal Obstruction/Diff Breathing History of perforated septum and septal issues, issues breathing out of her nose History of cocaine abuse We will refer to ENT surgery Hematuria resolved Patient is followed by a Urologist Dr. Valadez and has a referral for a Soils Technician as well Irina Cystoscopy with biopsy showed no signs of malignancy. Increase gabapentin to 200 3 times daily Depression: Patient has trialed other medications like Cymbalta which we suggested for depression and fibromyalgia treatment but patient states she has failed in the past and is currently on Effexor. Patient will continue to take Effexor and is advised to call with increased depression. start gabapentin/tizanid ine send to pain mgt/rheum Patient also was given prescription for motorized scooter per her request Of note, some information is being carried forward from prior records for informational purposes only and is being cited so that efficiency, safety and quality of the patient's care is not compromised This note was prepared using voice recognition software and direct typing Please excuse inadvertent web press operator assistant or typing errors, or uncorrected word substitutions Although every attempt has been made by the provider to proofread this document, occasional misspellings and typographical errors may still be present Due to the previous pandemic, and the use of personal protective equipment (PPE) This may decrease voice recognition accuracy Inadvertent web press operator assistant errors may occur 06/06/2024 Primary hypertension (ICD-10 - I10) Acute Concerns/Problem List: 06/06/2024 MAWV Dated labs please today after the visit Scheduled to see ENT surgery later this month Please follow-up on colonoscopy screening Increase gabapentin to 600 mg twice a day with tizanidine MOLST/HCP Discussed and Filed Of note, some information is being carried forward from prior records for informational purposes only and is being cited so that efficiency, safety and quality of the patient's care is not compromised This note was prepared using voice recognition software and direct typing Please excuse inadvertent web press operator assistant or typing errors, or uncorrected word substitutions Although every attempt has been made by the provider to proofread this document, occasional misspellings and typographical errors may still be present Due to the previous pandemic, and the use of personal protective equipment (PPE) This may decrease voice recognition accuracy Inadvertent web press operator assistant errors may occur 10/03/2023 Nicotine dependence with nicotine-induced disorder, unspecified nicotine product type (ICD-10 - F17.209) Patient here for MWV *update labs please Nasal Obstruction/Diff Breathing History of perforated septum and septal issues, issues breathing out of her nose History of cocaine abuse We will refer to ENT surgery # Hematuria Patient is followed by a Urologist Dr. Valadez and has a referral for a Soils Technician as well Irina Cystoscopy with biopsy showed no signs of malignancy. Patient is a chronic NSAID user for pain Pt is followed by renal/urology for hematuria/HTN #Weight loss: Patients TSH slightly low and we will monitor as her T3/T4 were both normal patient agreable. she states increased appetite and weight gain since her discharge from the hospital #Fibro: Patient will be referred to rheumatology for pain and we will review labs of NATHAN, ESR, CRP, and Rheum factor #Depression: Patient has trialed other medications like Cymbalta which we suggested for depression and fibromyalgia treatment but patient states she has failed in the past and is currently on Effexor. Patient will continue to take Effexor and is advised to call with increased depression. start gabapentin/tizanid ine send to pain mgt/rheum Patient also was given prescription for motorized scooter per her request incr gabapentin to 100mg TID* #Smoking Cessation Discussed using Wellbutrin for smoking cessation as Chantix and nicotine patch is contraindicated for this patient. We ordered Wellbutrin for the patient during todays visit and patient will start this medication and see if it helps with smoking as well as anxiety. Of note, some information is being carried forward from prior records for informational purposes only and is being cited so that efficiency, safety and quality of the patient's care is not compromised This note was prepared using voice recognition software and direct typing Please excuse inadvertent web press operator assistant or typing errors, or uncorrected word substitutions Although every attempt has been made by the provider to proofread this document, occasional misspellings and typographical errors may still be present Due to the previous pandemic, and the use of personal protective equipment (PPE) This may decrease voice recognition accuracy Inadvertent web press operator assistant errors may occur 06/06/2024 Fibromyalgia (ICD-10 - M79.7) Acute Concerns/Problem List: 06/06/2024 MAWV Dated labs please today after the visit Scheduled to see ENT surgery later this month Please follow-up on colonoscopy screening Increase gabapentin to 600 mg twice a day with tizanidine MOLST/HCP Discussed and Filed Of note, some information is being carried forward from prior records for informational purposes only and is being cited so that efficiency, safety and quality of the patient's care is not compromised This note was prepared using voice recognition software and direct typing Please excuse inadvertent web press operator assistant or typing errors, or uncorrected word substitutions Although every attempt has been made by the provider to proofread this document, occasional misspellings and typographical errors may still be present Due to the previous pandemic, and the use of personal protective equipment (PPE) This may decrease voice recognition accuracy Inadvertent web press operator assistant errors may occur 02/21/2024 Nicotine dependence with nicotine-induced disorder, unspecified nicotine product type (ICD-10 - F17.209) Acute Concerns/Problem List: 02/21/2024 *update labs please Dermatology referral for shave biopsy Nasal Obstruction/Diff Breathing History of perforated septum and septal issues, issues breathing out of her nose History of cocaine abuse We will refer to ENT surgery Hematuria resolved Patient is followed by a Urologist Dr. Valadez and has a referral for a Soils Technician as well Irina Cystoscopy with biopsy showed no signs of malignancy. Increase gabapentin to 200 3 times daily Depression: Patient has trialed other medications like Cymbalta which we suggested for depression and fibromyalgia treatment but patient states she has failed in the past and is currently on Effexor. Patient will continue to take Effexor and is advised to call with increased depression. start gabapentin/tizanid ine send to pain mgt/rheum Patient also was given prescription for motorized scooter per her request Of note, some information is being carried forward from prior records for informational purposes only and is being cited so that efficiency, safety and quality of the patient's care is not compromised This note was prepared using voice recognition software and direct typing Please excuse inadvertent web press operator assistant or typing errors, or uncorrected word substitutions Although every attempt has been made by the provider to proofread this document, occasional misspellings and typographical errors may still be present Due to the previous pandemic, and the use of personal protective equipment (PPE) This may decrease voice recognition accuracy Inadvertent web press operator assistant errors may occur 02/21/2024 Mild intermittent asthma without complication (ICD-10 - J45.20) Acute Concerns/Problem List: 02/21/2024 *update labs please Dermatology referral for shave biopsy Nasal Obstruction/Diff Breathing History of perforated septum and septal issues, issues breathing out of her nose History of cocaine abuse We will refer to ENT surgery Hematuria resolved Patient is followed by a Urologist Dr. Valadez and has a referral for a Soils Technician as well Irina Cystoscopy with biopsy showed no signs of malignancy. Increase gabapentin to 200 3 times daily Depression: Patient has trialed other medications like Cymbalta which we suggested for depression and fibromyalgia treatment but patient states she has failed in the past and is currently on Effexor. Patient will continue to take Effexor and is advised to call with increased depression. start gabapentin/tizanid ine send to pain mgt/rheum Patient also was given prescription for motorized scooter per her request Of note, some information is being carried forward from prior records for informational purposes only and is being cited so that efficiency, safety and quality of the patient's care is not compromised This note was prepared using voice recognition software and direct typing Please excuse inadvertent web press operator assistant or typing errors, or uncorrected word substitutions Although every attempt has been made by the provider to proofread this document, occasional misspellings and typographical errors may still be present Due to the previous pandemic, and the use of personal protective equipment (PPE) This may decrease voice recognition accuracy Inadvertent web press operator assistant errors may occur 06/06/2024 Depression, unspecified depression type (ICD-10 - F32.9) Acute Concerns/Problem List: 06/06/2024 MAWV Dated labs please today after the visit Scheduled to see ENT surgery later this month Please follow-up on colonoscopy screening Increase gabapentin to 600 mg twice a day with tizanidine MOLST/HCP Discussed and Filed Of note, some information is being carried forward from prior records for informational purposes only and is being cited so that efficiency, safety and quality of the patient's care is not compromised This note was prepared using voice recognition software and direct typing Please excuse inadvertent web press operator assistant or typing errors, or uncorrected word substitutions Although every attempt has been made by the provider to proofread this document, occasional misspellings and typographical errors may still be present Due to the previous pandemic, and the use of personal protective equipment (PPE) This may decrease voice recognition accuracy Inadvertent web press operator assistant errors may occur 10/03/2023 Mild intermittent asthma without complication (ICD-10 - J45.20) Patient here for MWV *update labs please Nasal Obstruction/Diff Breathing History of perforated septum and septal issues, issues breathing out of her nose History of cocaine abuse We will refer to ENT surgery # Hematuria Patient is followed by a Urologist Dr. Valadez and has a referral for a Soils Technician as well Irina Cystoscopy with biopsy showed no signs of malignancy. Patient is a chronic NSAID user for pain Pt is followed by renal/urology for hematuria/HTN #Weight loss: Patients TSH slightly low and we will monitor as her T3/T4 were both normal patient agreable. she states increased appetite and weight gain since her discharge from the hospital #Fibro: Patient will be referred to rheumatology for pain and we will review labs of NATHAN, ESR, CRP, and Rheum factor #Depression: Patient has trialed other medications like Cymbalta which we suggested for depression and fibromyalgia treatment but patient states she has failed in the past and is currently on Effexor. Patient will continue to take Effexor and is advised to call with increased depression. start gabapentin/tizanid ine send to pain mgt/rheum Patient also was given prescription for motorized scooter per her request incr gabapentin to 100mg TID* #Smoking Cessation Discussed using Wellbutrin for smoking cessation as Chantix and nicotine patch is contraindicated for this patient. We ordered Wellbutrin for the patient during todays visit and patient will start this medication and see if it helps with smoking as well as anxiety. Of note, some information is being carried forward from prior records for informational purposes only and is being cited so that efficiency, safety and quality of the patient's care is not compromised This note was prepared using voice recognition software and direct typing Please excuse inadvertent web press operator assistant or typing errors, or uncorrected word substitutions Although every attempt has been made by the provider to proofread this document, occasional misspellings and typographical errors may still be present Due to the previous pandemic, and the use of personal protective equipment (PPE) This may decrease voice recognition accuracy Inadvertent web press operator assistant errors may occur 02/21/2024 Hyperlipidemia, unspecified (ICD-10 - E78.5) Acute Concerns/Problem List: 02/21/2024 *update labs please Dermatology referral for shave biopsy Nasal Obstruction/Diff Breathing History of perforated septum and septal issues, issues breathing out of her nose History of cocaine abuse We will refer to ENT surgery Hematuria resolved Patient is followed by a Urologist Dr. Valadez and has a referral for a Soils Technician as well Irina Cystoscopy with biopsy showed no signs of malignancy. Increase gabapentin to 200 3 times daily Depression: Patient has trialed other medications like Cymbalta which we suggested for depression and fibromyalgia treatment but patient states she has failed in the past and is currently on Effexor. Patient will continue to take Effexor and is advised to call with increased depression. start gabapentin/tizanid ine send to pain mgt/rheum Patient also was given prescription for motorized scooter per her request Of note, some information is being carried forward from prior records for informational purposes only and is being cited so that efficiency, safety and quality of the patient's care is not compromised This note was prepared using voice recognition software and direct typing Please excuse inadvertent web press operator assistant or typing errors, or uncorrected word substitutions Although every attempt has been made by the provider to proofread this document, occasional misspellings and typographical errors may still be present Due to the previous pandemic, and the use of personal protective equipment (PPE) This may decrease voice recognition accuracy Inadvertent web press operator assistant errors may occur 10/03/2023 Hyperlipidemia, unspecified (ICD-10 - E78.5) Patient here for MWV *update labs please Nasal Obstruction/Diff Breathing History of perforated septum and septal issues, issues breathing out of her nose History of cocaine abuse We will refer to ENT surgery # Hematuria Patient is followed by a Urologist Dr. Valadez and has a referral for a Soils Technician as well Irina Cystoscopy with biopsy showed no signs of malignancy. Patient is a chronic NSAID user for pain Pt is followed by renal/urology for hematuria/HTN #Weight loss: Patients TSH slightly low and we will monitor as her T3/T4 were both normal patient agreable. she states increased appetite and weight gain since her discharge from the hospital #Fibro: Patient will be referred to rheumatology for pain and we will review labs of NATHAN, ESR, CRP, and Rheum factor #Depression: Patient has trialed other medications like Cymbalta which we suggested for depression and fibromyalgia treatment but patient states she has failed in the past and is currently on Effexor. Patient will continue to take Effexor and is advised to call with increased depression. start gabapentin/tizanid ine send to pain mgt/rheum Patient also was given prescription for motorized scooter per her request incr gabapentin to 100mg TID* #Smoking Cessation Discussed using Wellbutrin for smoking cessation as Chantix and nicotine patch is contraindicated for this patient. We ordered Wellbutrin for the patient during todays visit and patient will start this medication and see if it helps with smoking as well as anxiety. Of note, some information is being carried forward from prior records for informational purposes only and is being cited so that efficiency, safety and quality of the patient's care is not compromised This note was prepared using voice recognition software and direct typing Please excuse inadvertent web press operator assistant or typing errors, or uncorrected word substitutions Although every attempt has been made by the provider to proofread this document, occasional misspellings and typographical errors may still be present Due to the previous pandemic, and the use of personal protective equipment (PPE) This may decrease voice recognition accuracy Inadvertent web press operator assistant errors may occur 06/06/2024 Nicotine dependence with nicotine-induced disorder, unspecified nicotine product type (ICD-10 - F17.209) Acute Concerns/Problem List: 06/06/2024 MAWV Dated labs please today after the visit Scheduled to see ENT surgery later this month Please follow-up on colonoscopy screening Increase gabapentin to 600 mg twice a day with tizanidine MOLST/HCP Discussed and Filed Of note, some information is being carried forward from prior records for informational purposes only and is being cited so that efficiency, safety and quality of the patient's care is not compromised This note was prepared using voice recognition software and direct typing Please excuse inadvertent web press operator assistant or typing errors, or uncorrected word substitutions Although every attempt has been made by the provider to proofread this document, occasional misspellings and typographical errors may still be present Due to the previous pandemic, and the use of personal protective equipment (PPE) This may decrease voice recognition accuracy Inadvertent web press operator assistant errors may occur 06/06/2024 Mild intermittent asthma without complication (ICD-10 - J45.20) Acute Concerns/Problem List: 06/06/2024 MAWV Dated labs please today after the visit Scheduled to see ENT surgery later this month Please follow-up on colonoscopy screening Increase gabapentin to 600 mg twice a day with tizanidine MOLST/HCP Discussed and Filed Of note, some information is being carried forward from prior records for informational purposes only and is being cited so that efficiency, safety and quality of the patient's care is not compromised This note was prepared using voice recognition software and direct typing Please excuse inadvertent web press operator assistant or typing errors, or uncorrected word substitutions Although every attempt has been made by the provider to proofread this document, occasional misspellings and typographical errors may still be present Due to the previous pandemic, and the use of personal protective equipment (PPE) This may decrease voice recognition accuracy Inadvertent web press operator assistant errors may occur 10/03/2023 Seasonal allergies (ICD-10 - J30.2) Patient here for MWV *update labs please Nasal Obstruction/Diff Breathing History of perforated septum and septal issues, issues breathing out of her nose History of cocaine abuse We will refer to ENT surgery # Hematuria Patient is followed by a Urologist Dr. Valadez and has a referral for a Soils Technician as well Irina Cystoscopy with biopsy showed no signs of malignancy. Patient is a chronic NSAID user for pain Pt is followed by renal/urology for hematuria/HTN #Weight loss: Patients TSH slightly low and we will monitor as her T3/T4 were both normal patient agreable. she states increased appetite and weight gain since her discharge from the hospital #Fibro: Patient will be referred to rheumatology for pain and we will review labs of NATHAN, ESR, CRP, and Rheum factor #Depression: Patient has trialed other medications like Cymbalta which we suggested for depression and fibromyalgia treatment but patient states she has failed in the past and is currently on Effexor. Patient will continue to take Effexor and is advised to call with increased depression. start gabapentin/tizanid ine send to pain mgt/rheum Patient also was given prescription for motorized scooter per her request incr gabapentin to 100mg TID* #Smoking Cessation Discussed using Wellbutrin for smoking cessation as Chantix and nicotine patch is contraindicated for this patient. We ordered Wellbutrin for the patient during todays visit and patient will start this medication and see if it helps with smoking as well as anxiety. Of note, some information is being carried forward from prior records for informational purposes only and is being cited so that efficiency, safety and quality of the patient's care is not compromised This note was prepared using voice recognition software and direct typing Please excuse inadvertent web press operator assistant or typing errors, or uncorrected word substitutions Although every attempt has been made by the provider to proofread this document, occasional misspellings and typographical errors may still be present Due to the previous pandemic, and the use of personal protective equipment (PPE) This may decrease voice recognition accuracy Inadvertent web press operator assistant errors may occur 02/21/2024 Seasonal allergies (ICD-10 - J30.2) Acute Concerns/Problem List: 02/21/2024 *update labs please Dermatology referral for shave biopsy Nasal Obstruction/Diff Breathing History of perforated septum and septal issues, issues breathing out of her nose History of cocaine abuse We will refer to ENT surgery Hematuria resolved Patient is followed by a Urologist Dr. Valadez and has a referral for a Soils Technician as well Irina Cystoscopy with biopsy showed no signs of malignancy. Increase gabapentin to 200 3 times daily Depression: Patient has trialed other medications like Cymbalta which we suggested for depression and fibromyalgia treatment but patient states she has failed in the past and is currently on Effexor. Patient will continue to take Effexor and is advised to call with increased depression. start gabapentin/tizanid ine send to pain mgt/rheum Patient also was given prescription for motorized scooter per her request Of note, some information is being carried forward from prior records for informational purposes only and is being cited so that efficiency, safety and quality of the patient's care is not compromised This note was prepared using voice recognition software and direct typing Please excuse inadvertent web press operator assistant or typing errors, or uncorrected word substitutions Although every attempt has been made by the provider to proofread this document, occasional misspellings and typographical errors may still be present Due to the previous pandemic, and the use of personal protective equipment (PPE) This may decrease voice recognition accuracy Inadvertent web press operator assistant errors may occur 02/21/2024 Hematuria, unspecified type (ICD-10 - R31.9) Acute Concerns/Problem List: 02/21/2024 *update labs please Dermatology referral for shave biopsy Nasal Obstruction/Diff Breathing History of perforated septum and septal issues, issues breathing out of her nose History of cocaine abuse We will refer to ENT surgery Hematuria resolved Patient is followed by a Urologist Dr. Valadez and has a referral for a Soils Technician as well Irina Cystoscopy with biopsy showed no signs of malignancy. Increase gabapentin to 200 3 times daily Depression: Patient has trialed other medications like Cymbalta which we suggested for depression and fibromyalgia treatment but patient states she has failed in the past and is currently on Effexor. Patient will continue to take Effexor and is advised to call with increased depression. start gabapentin/tizanid ine send to pain mgt/rheum Patient also was given prescription for motorized scooter per her request Of note, some information is being carried forward from prior records for informational purposes only and is being cited so that efficiency, safety and quality of the patient's care is not compromised This note was prepared using voice recognition software and direct typing Please excuse inadvertent web press operator assistant or typing errors, or uncorrected word substitutions Although every attempt has been made by the provider to proofread this document, occasional misspellings and typographical errors may still be present Due to the previous pandemic, and the use of personal protective equipment (PPE) This may decrease voice recognition accuracy Inadvertent web press operator assistant errors may occur 10/03/2023 Hematuria, unspecified type (ICD-10 - R31.9) Patient here for MWV *update labs please Nasal Obstruction/Diff Breathing History of perforated septum and septal issues, issues breathing out of her nose History of cocaine abuse We will refer to ENT surgery # Hematuria Patient is followed by a Urologist Dr. Valadez and has a referral for a Soils Technician as well Irina Cystoscopy with biopsy showed no signs of malignancy. Patient is a chronic NSAID user for pain Pt is followed by renal/urology for hematuria/HTN #Weight loss: Patients TSH slightly low and we will monitor as her T3/T4 were both normal patient agreable. she states increased appetite and weight gain since her discharge from the hospital #Fibro: Patient will be referred to rheumatology for pain and we will review labs of NATHAN, ESR, CRP, and Rheum factor #Depression: Patient has trialed other medications like Cymbalta which we suggested for depression and fibromyalgia treatment but patient states she has failed in the past and is currently on Effexor. Patient will continue to take Effexor and is advised to call with increased depression. start gabapentin/tizanid ine send to pain mgt/rheum Patient also was given prescription for motorized scooter per her request incr gabapentin to 100mg TID* #Smoking Cessation Discussed using Wellbutrin for smoking cessation as Chantix and nicotine patch is contraindicated for this patient. We ordered Wellbutrin for the patient during todays visit and patient will start this medication and see if it helps with smoking as well as anxiety. Of note, some information is being carried forward from prior records for informational purposes only and is being cited so that efficiency, safety and quality of the patient's care is not compromised This note was prepared using voice recognition software and direct typing Please excuse inadvertent web press operator assistant or typing errors, or uncorrected word substitutions Although every attempt has been made by the provider to proofread this document, occasional misspellings and typographical errors may still be present Due to the previous pandemic, and the use of personal protective equipment (PPE) This may decrease voice recognition accuracy Inadvertent web press operator assistant errors may occur 06/06/2024 Seasonal allergies (ICD-10 - J30.2) Acute Concerns/Problem List: 06/06/2024 MAWV Dated labs please today after the visit Scheduled to see ENT surgery later this month Please follow-up on colonoscopy screening Increase gabapentin to 600 mg twice a day with tizanidine MOLST/HCP Discussed and Filed Of note, some information is being carried forward from prior records for informational purposes only and is being cited so that efficiency, safety and quality of the patient's care is not compromised This note was prepared using voice recognition software and direct typing Please excuse inadvertent web press operator assistant or typing errors, or uncorrected word substitutions Although every attempt has been made by the provider to proofread this document, occasional misspellings and typographical errors may still be present Due to the previous pandemic, and the use of personal protective equipment (PPE) This may decrease voice recognition accuracy Inadvertent web press operator assistant errors may occur 06/06/2024 Primary osteoarthritis, unspecified site (ICD-10 - M19.91) Acute Concerns/Problem List: 06/06/2024 MAWV Dated labs please today after the visit Scheduled to see ENT surgery later this month Please follow-up on colonoscopy screening Increase gabapentin to 600 mg twice a day with tizanidine MOLST/HCP Discussed and Filed Of note, some information is being carried forward from prior records for informational purposes only and is being cited so that efficiency, safety and quality of the patient's care is not compromised This note was prepared using voice recognition software and direct typing Please excuse inadvertent web press operator assistant or typing errors, or uncorrected word substitutions Although every attempt has been made by the provider to proofread this document, occasional misspellings and typographical errors may still be present Due to the previous pandemic, and the use of personal protective equipment (PPE) This may decrease voice recognition accuracy Inadvertent web press operator assistant errors may occur PLAN OF TREATMENT Pending Test Test Name Order Date CT Scan : Sinuses 08/22/2018 Chest X-ray PA and lateral 03/29/2018 Thyroid Peroxidase (TPO) Ab 05/18/2022 Lipid Panel 10/19/2017 Lipid Panel 12/16/2020 Comp. Metabolic Panel (14) 12/16/2020 CT ABDOMEN W/O CONTRAST 07/20/2021 CBC 12/16/2020 CBC 10/19/2017 Chem-Comprehensive 10/19/2017 Urinalysis 12/16/2020 [place] Machine 03/29/2018 25OH VITAMIN D 04/23/2022 CBC (COMPLETE BLOOD COUNT) 07/08/2020 CBC (COMPLETE BLOOD COUNT) 07/30/2019 CBC (COMPLETE BLOOD COUNT) WITH DIFF COMPREHENSIVE METABOLIC PANEL 04/23/2022 COMPREHENSIVE METABOLIC PANEL 07/08/2020 COMPREHENSIVE METABOLIC PANEL 07/30/2019 HEMOGLOBIN A1C 07/30/2019 HEMOGLOBIN A1C 10/19/2017 HEMOGLOBIN A1C 07/08/2020 HEMOGLOBIN A1C 04/23/2022 LIPID PANEL 04/23/2022 LIPID PANEL 07/30/2019 LIPID PANEL 07/08/2020 T4, TOTAL 06/07/2024 T4, TOTAL 05/18/2022 TSH WITH REFLEX TO FT4 04/23/2022 URINALYSIS W/REFLEX CULTURE 04/23/2022 URINALYSIS, COMPLETE 07/08/2020 URINALYSIS, COMPLETE 07/30/2019 Thyroglobulin Antibody 05/18/2022 CT Chest w/o Contrast 05/10/2018 FREE T4 05/18/2022 THYROGLOBULIN 05/18/2022 LIPID PANEL, STANDARD 06/06/2024 COMPREHENSIVE METABOLIC PANEL 06/06/2024 CBC (INCLUDES DIFF/PLT) 06/06/2024 URINALYSIS, COMPLETE 06/06/2024 HEMOGLOBIN A1c 06/06/2024 TSH 06/06/2024 VITAMIN D,25-OH,TOTAL,IA 06/06/2024 CT Low Dose Lung Screening 03/19/2021 CT Chest W/O Contrast 07/20/2021 Future Test Test Name Order Date 25OH VITAMIN D 03/19/2021 CRP, HIGH SENSITIVITY 03/19/2021 HEMOGLOBIN A1C 03/19/2021 RHEUMATOID FACTOR 03/19/2021 ESR 03/19/2021 NATHAN SCREEN, IFA, W/REFL TITER AND PATTER N 03/19/2021 25OH VITAMIN D 05/23/2023 CBC (COMPLETE BLOOD COUNT) WITH DIFF COMPREHENSIVE METABOLIC PANEL 05/23/2023 HEMOGLOBIN A1C 05/23/2023 LIPID PANEL 05/23/2023 T4, TOTAL 05/23/2023 TSH 05/23/2023 URINALYSIS W/REFLEX CULTURE 05/23/2023 Next Appt Details Provider Name:SOUMYA TO, 10/08/2024 02:45:00 PM, [address] [facility], [address], [place], [address], Insurance Providers Payer Name Payer Address Payer Phone Subscriber Number Group Number Insured Name Patient Relationship to Insured Coverage Start Date Coverage End Date [employer] or Options [address] [place] [id number] SHANTA CHAPA Self - patient is the insured MEDICAL (GENERAL) HISTORY Medical History History ICD Code depression anxiety asthma fibromyalgia rheumatoid arthritis Surgical History Surgery Date(Month/Year) breast implants colonoscopy 2015 normal oral surgery sinus surgery neck surgery 10/13/20
== END 2024-09-13 15:53 | disposition home or self-care (01) ==
PROVIDERS: PCP Internal Medicine; Visit Provider Student in an Organized Health Care Education/Training Program
DX: M17.0 Bilateral primary osteoarthritis of knee (principal); M79.7 Fibromyalgia
CPT/HCPCS: 99204

== ENCOUNTER 2024-09-13 15:07 | Outpatient (REF) | payer OTHER, SELFPAY ==
--- OUTSIDE RECORDS SUMMARY | 2024-09-13 17:13 | XMS_ITS | Data Portability ---
Author Organization [place] [facility] PAIN OFF[facility] Address [address] [facility],[address] [address] Care Team Providers Care Getter Operator Name Role Phone ABHIJEET DENT Primary Care Provider Assessment Encounter Date Assessment Date Assessment LastModified by Organization Details LastModified Time 10/05/2019 10/05/2019 Cindy Mckenna is a 54 year old woman with complaints of neck pain and low back pain. Her worse pain is in her low back and radiates into her both lower extremities . She has trialed physical therapy with persistent pain. On exam, she has pain on flexion and a positive straight leg raising test on the right. I recommend a MRI lumbar spine to elucidate the cause of her pain. She will follow up to review the same and for further treatment plans. I have encouraged to continue physical therapy and discussed the importance of core strengthening. [email or web address] Not available 10/05/2019 12:11:07 10/23/2019 10/23/2019 Cindy Mckenna is a 54 year old woman with complaints of neck pain and low back pain. Her worse pain is in her low back and radiates into her both lower extremities . She has trialed physical therapy with persistent pain. On exam, she has pain on flexion and a positive straight leg raising test on the right. I recommend a MRI lumbar spine to elucidate the cause of her pain. She has missed her MRI appointment. I have explained that I will not be rescheduling the appointment for her. She will have to schedule it herself. She will follow up to review the same and for further treatment plans. I have encouraged to continue physical therapy and discussed the importance of core strengthening. [email or web address] Not available 11/15/2019 10:28:27 Plan of Treatment Reminders Order Date Submit Date Provider Last Modified By Organization Details Last Modified Time Details Appointments None recorded. Lab None recorded. Referral None recorded. Procedures None recorded. Surgeries None recorded. Imaging MRI, lumbar spine, w/o contrast - Patient has appointment on Tuesday at 10:30 AM 2019 020 [facility] [place], [address], [address], [place], [address], 0 05:01:41 Medication Orders None recorded. Patient TargetsNo targets recorded. Patient Instructions Encounter Date Encounter Id Patient Instructions Last Modified By Organization Details Last Modified Time 10/05/2019 [id number] She was advised against bed rest lasting longer than four days and to continue activities as tolerated. [email or web address] Not available 10/05/2019 12:10:05 10/23/2019 [id number] She was advised against bed rest lasting longer than four days and to continue activities as tolerated. [email or web address] Not available 11/15/2019 10:27:28 Reason for Referral None Reported. Problems Name Problem SNOMED Code Status Onset Date Resolution Date Notes Provider Name and Address Organization Details Recorded Time Lumbosacral radiculopathy [id number] Марина denson MD [address] [facility] , [address], [place], [address], [place] [facility] 0 12:09:05 Degeneration of lumbar intervertebral disc [id number] Марина denson MD [address] [facility] , [address], [place], [address], [place] [facility] 0 12:11:15 Subacromial bursitis [id number] Марина denson MD [address] [facility] , [address], [place], [address], [place] [facility] 0 12:11:29 Osteoarthritis of knee [id number] Марина denson MD [address] [facility] , [address], [place], [address], [place] [facility] 0 12:11:55 Problem Notes None recorded. Medical Equipment None Reported. Allergies No known drug allergies Medications Name Sig Start Date Stop Date Status Note LastModified by Organization Details LastModified Time clonidine HCl 0.1 mg tablet active Not Available Not Available Not Available venlafaxine ER 75 mg capsule,ext ended release 24 hr active Not Available Not Available Not Available doxycycline hyclate 100 mg capsule 10/05 completed Not Available Not Available Not Available clindamycin HCl 300 mg capsule 10/05 completed Not Available Not Available Not Available azithromyci n 250 mg tablet 10/05 completed Not Available Not Available Not Available alprazolam 1 mg tablet active Not Available Not Available Not Available sumatriptan 100 mg tablet active Not Available Not Available Not Available hydrocodone 5 mg-acetamin ophen 325 mg tablet 10/05 completed Not Available Not Available Not Available ondansetron HCl 4 mg tablet active Not Available Not Available Not Available clonazepam 0.5 mg tablet active Not Available Not Available Not Available clonazepam 1 mg tablet active Not Available Not Available Not Available venlafaxine ER 150 mg capsule,ext ended release 24 hr active Not Available Not Available Not Available pseudoephed rine ER 120 mg tablet,exte nded release TAKE 1 TABLET BY MOUTH TWICE A DAY active Not Available Not Available No t Available hydroxyzine HCl 50 mg tablet active Not Available Not Available Not Available omeprazole 40 mg capsule,del ayed release active Not Available Not Available Not Available tramadol 50 mg tablet 10/05 completed Not Available Not Available Not Available butalbital- acetaminoph en-caffeine 50 mg-325 mg-40 mg tablet active Not Available Not Available Not Available amoxicillin 500 mg tablet 10/05 completed Not Available Not Available Not Available terbinafine HCl 250 mg tablet active Not Available Not Available Not Available propranolol 10 mg tablet active Not Available Not Available Not Available amitriptyli ne 10 mg tablet active Not Available Not Available Not Available rizatriptan 10 mg disintegrat ing tablet active Not Available Not Available N ot Available dexamethaso ne 4 mg tablet active Not Available Not Available Not Available pseudoephed rine 30 mg tablet TAKE 2 TABLETS BY MOUTH EVERY 6 HOURS active Not Available Not Available No t Available ibuprofen 600 mg tablet active Not Available Not Available Not Available levofloxaci n 500 mg tablet 10/05 completed Not Available Not Available Not Available albuterol sulfate HFA 90 mcg/actuati on aerosol inhaler active Not Available Not Available Not Available ondansetron 4 mg disintegrat ing tablet active Not Available Not Available N ot Available naproxen 500 mg tablet active Not Available Not Available Not Available amoxicillin 875 mg-potassiu m clavulanate 125 mg tablet 10/05 completed Not Available Not Available Not Available neomycin 3.5 mg/g-polymy kenyatta B 10,000 unit/g-dexa meth 0.1 % eye oint APPLY AL ACOSTARSE EN BENEDICT DERECHO active Not Available Not Available No t Available Afrin (oxymetazol ine) 0.05 % nasal spray TAKE 2 SPRAYS BY NASAL ROUTE TWICE A DAY active Not Available Not Available No t Available Restasis 0.05 % eye drops in a dropperette active Not Available Not Available Not Available duloxetine 30 mg capsule,del ayed release 10/05 completed Not Available Not Available Not Available zolpidem ER 12.5 mg tablet,exte nded release,mul tiphase 10/05 completed Not Available Not Available Not Available Rexulti 3 mg tablet active Not Available Not Available No t Available Restasis MultiDose 0.05 % eye drops INSTILL 1 DROP INTO BOTH EYES TWICE A DAY active Not Available Not Available No t Available Aimovig Autoinjecto r 140 mg/mL subcutaneou s auto-inject or active Not Available Not Available Not Available Vitals Date Recorded Body height Body mass index (BMI) Body weight Heart rate Oxygen saturation Oxygen saturation in Arterial blood by Pulse oximetry Systolic blood pressure Diastolic blood pressure Provider Name and Address Organization Details Last Updated DateTime 0 152.4 cm 29.3 kg/m2 17963.8 6 g 73 /min 98 % 98 % 152 mm[Hg] 72 mm[Hg] Margaret denson [place] [facility] 0 10:35:14 Date Recorded Body height Body mass index (BMI) Body weight Heart rate Oxygen saturation Oxygen saturation in Arterial blood by Pulse oximetry Systolic blood pressure Diastolic blood pressure Provider Name and Address Organization Details Last Updated DateTime 0 152.4 cm 29.3 kg/m2 30537.8 6 g 74 /min 99 % 99 % 147 mm[Hg] 83 mm[Hg] Margaret denson [place] [facility] 0 15:30:07 Social History Question Answer Notes LastModified by Organizat ion Details LastModified Time Tobacco Smoking Status Current Every Day Smoker Margaret leija [place] [facility] 10/05/2019 10:16:05 What Is Your Level Of Alcohol Consumption? None Information not available 10/05/2019 Which Illicit Or Recreational Drugs Have You Used? None Information not available 10/05/2019 Education 2 Year College Information not available 10/05/2019 Live Alone Or With Others? Alone Information not available 10/05/2019 Marital Status Single Informati on not available 10/05/2019 How Much Tobacco Do You Smoke? 1 PPD Information not available 10/05/2019 Sex: Unknown Functional Status None recorded. Mental Status None recorded. Family History Nothing Reported Notes:Diabetes Stroke HTN Medical History Condition Response Gout N Neuropathy/Neuralgia N Kidney Stones N Hyperthyroidism N Hypothyroidism N Depression Y COPD N Anxiety Disorder Y Arthritis Y Cancer N Stroke N HIV/AIDS N Headache Y High Cholesterol N Liver Disease N Fibromyalgia Y Irritable Bowel Syndrome N Kidney Disease N Hepatitis C N Migrane Y Diabetes N Seizures/Epilepsy N Asthma Y Bipolar Disorder N GERD/Reflux N Pulmonary Embolism N Hypertension Y Osteoporosis N Gynecological HistoryNo gynecological history recorded. Obstetrics History GPAL:G 0 P 0 0 0 0 Past Encounters Encounter ID Performer Location Encounter Start Date Encounter Closed Date Diagnosis/Indication Diagnosis SNOMED-CT Code Diagnosis ICD10 Code Diagnosis Note [id number] Moose Aj MD PAIN OFFICE [address] [place] [address] 10/05/2019 10:06:47 10/05/2019 12:13:08 Lumbosacral radiculopathy 8875458 M54.17 Degenerati on of lumbar intervertebral disc 09819260 M51.36 Subacromial bursitis 407 01251 M75.51 Osteoarthr itis of knee 866316150 M17.9 [id number] Moose Aj MD PAIN OFFICE [address] [place] [address] 10/23/2019 15:13:50 11/15/2019 10:29:06 Lumbosacral radiculopathy 7864395 M54.17 Degenerati on of lumbar intervertebral disc 53347372 M51.36 Subacromial bursitis 407 82609 M75.51 Osteoarthr itis of knee 333805622 M17.9 Health Concerns Section Related Observation LastModified by Organization Detai ls LastModified Time None Recorded Concern Status LastModified by Organization Details LastModified Time None Recorded Advance Directives Directive None Recorded Payers Encounter Date Sequence Insurance Name Policy Number Policy Crabtree Covered Member ID Crabtree Member ID Guarantor Name 10/05/2019 1 [place] [employer] Cindy Mckenna [id number] Cindy Camargos 10/05/2019 2 [place] [facility] Cindy Mckenna [id number] Cindy Mckenna 10/23/2019 1 [place] [employer] Cindy Mckenna [id number] Cindy Camargos 10/23/2019 2 [place] [facility] Cindy Mckenna [id number] Cindy Mckenna Notes Date Note Type Note Provider Name and Address Organization Details Recorded Time 10/05/2019 text/html Cindy Mckenna is a 54 year old woman with complaints of low back pain radiating into both lower extremities and right shoulder pain. The pain started spontaneously and is becoming greater for the past three months. She describes the pain as a cramping and aching pain. Current pain level is 5-10/10. Pain is aggravated by walking for prolonged periods. Pain interferes with sleep. She has had injections at [facility] and missed a few appointments and hence they discharged her. She has steroid injections in her knees at the arthritis treatment center and shoulder injections at [facility]. She was on tramadol and oxycodone with some pain benefit. She has been off these medications for the past 4 months since discharge from [facility]. She has an appointment with neurologist for botox injections for hr headaches.No Recent imaging studies. Moose Aj MD [address] , [address], [place], [address], [facility] - Pain Management 10/10/2019 14:15:04 10/23/2019 text/html She is here for a follow up to review MRI. She states she did not have the MRI as the date was not convenient for her. She is complaining of neck pain radiating into her left upper extremity and low back pain . Moose Aj MD [address] [place] [address] , [address], [place], [address], [facility] 11/15/2019 13:25:38 OBGyn Episode No OBEpisode recorded.
== END 2024-09-13 15:08 | disposition home or self-care (01) ==
LOC: HO.XRAY 15:07
PROVIDERS: PCP Internal Medicine; Visit Provider Student in an Organized Health Care Education/Training Program
DX: M17.0 Bilateral primary osteoarthritis of knee (principal); M79.7 Fibromyalgia
CPT/HCPCS: 99202

== ENCOUNTER 2025-04-19 12:51 | Outpatient (AMB) | payer OTHER, SELFPAY ==
--- OUTSIDE RECORDS SUMMARY | 2025-04-19 12:55 | XMS_ITS | Clinical Summary ---
Author Organization [facility] Address [address] [place] [phone] Phone Care Team Providers Care Blender Snuff Name Role Phone Ancelmo Morales NP Primary Care Provider [phone] Allergies Active Allergy Reactions Criticality Noted Date Comments Valproic Acid 05/24/2022 Hives Medications venlafaxine XR (EFFEXOR-XR) 75 MG 24 hr capsule 75 mg Active omeprazole (PriLOSEC) [address] capsule omeprazole 40 mg capsule,delayed release 2 Active albuterol HFA (PROVENTIL HFA;VENTOLIN HFA) 108 (90 Base) MCG/ACT inhaler albuterol sulfate HFA 90 mcg/actuation aerosol inhaler Active Symbicort 80-4.5 MCG/ACT inhaler 2 Active tiZANidine (ZANAFLEX) 2 MG tablet Take 1 tablet by mouth 1 (one) time each day 2 Active neomycin-polymy kenyatta-dexamethame thasone (POLYDEX) 3.5-93641-9.1 ointment APPLY APPLICATIONS APPLY AT BEDTIME INTO BOTH EYES 2 Active ketotifen (ZADITOR) 0.025 % ophthalmic solution Administer 1 drop into both eyes 2 Active cetirizine (ZyrTEC) 10 MG tablet Take 1 tablet by mouth 1 (one) time each day 2 Active venlafaxine XR (EFFEXOR-XR) 150 MG 24 hr capsule Take 150 mg by mouth 1 (one) time each day Do not crush or chew. Active estradiol (ESTRACE) 1 MG tablet Take 1 mg by mouth 1 (one) time each day Active buPROPion SR (WELLBUTRIN SR) 150 MG 12 hr tablet TAKE 1 TABLET BY MOUTH EVERY DAY IN THE MORNING FOR 90 DAYS 3 Active traMADol (ULTRAM) 50 MG tablet Take 1 tablet (50 mg total) by mouth every 8 (eight) hours if needed for moderate pain 90 tablet 4 Active clonazePAM (KlonoPIN) 1 MG tablet Take 1 mg by mouth 5 Active fluticasone (FLONASE) 50 MCG/ACT nasal spray Administer 1 spray into each nostril 1 (one) time each day 4 Active doxycycline (VIBRAMYCIN) 100 MG capsule Take 100 mg by mouth in the morning and 100 mg in the evening. 5 Active divalproex (DEPAKOTE) 500 MG EC tablet Take 500 mg by mouth in the morning and 500 mg in the evening. Do not crush, chew, or split.. Active cloNIDine (CATAPRES) 0.1 MG tabletIndicatio ns:Hypertension Take 1 tablet (0.1 mg total) by mouth in the morning and 1 tablet (0.1 mg total) in the evening. 60 tablet 5 5 04/28/20 25 Active levoFLOXacin (LEVAQUIN) 750 MG tablet Take by mouth 1 (one) time each day Active OXYCODONE ER PO Take 5 mg by mouth in the morning. Active Sennosides (Senna) 8.6 MG capsule Take by mouth Active gabapentin (NEURONTIN) 300 MG capsule Take 300 mg by mouth in the morning and 300 mg in the evening and 300 mg before bedtime. 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 The patient's blood pressure today was noted to be well controlled. We'll continue the current antihypertensive medication regimen. Fibromyalgia 08/12/2020 Finding related to substance use 08/12/2020 Overview (05/24/2022): Cocaine Dependence w/ Withdrawal added to Medical Summary 01/23/2019 Tobacco use 08/12/2020 Overview (05/24/2022): Last Assessment & Plan: The patient is a longtime smoker. She has a 45-tcnn-jcmf smoking history. The patient states that she already received a prescription for nicotine patches and she will start wearing the patches soon. Resolved Problems Problem Noted Date Diagnosed Date Resolved Date Anxiety 05/24/2022 05/24/2022 Degeneration of lumbar intervertebral disc 05/24/2022 05/24/2022 Depressive disorder 05/24/2022 05/24/20 22 Insomnia 05/24/2022 05/24/2022 Lumbosacral radiculopathy 05/24/2022 Migraine 05/24/2022 05/24/2022 Osteoarthritis of knee 05/24/202205/24 Subacromial bursitis 05/24/2022 022 Palpitations 11/13/2020 05/24/2022 Overview (05/24/2022): Last Assessment & Plan: The patient was experiencing palpitations due to frequent PVCs. She was started on beta-mariana therapy with metoprolol that resulted in improvement in her symptoms. Left heart catheterization in 2018 did not show any significant CAD. Echocardiogram in February 2021 showed a normal LVEF. At this point, we will continue her current medical therapy Chronic sinusitis 08/12/2020 05/24/2022 Overview (05/24/2022): Congenital perforated nasal septum. Onychomycosis 08/12/2020 05/24/2022 Polyp of colon 08/12/2020 05/24/2022 Overview (05/24/2022): 07/08/2020 noted: colonoscopy pathology report shows pre-cancerous polyps. No path report. Encounters Date Type Department Care Team Description 03/04/2025 3:45 PM EDT [facility] Visit [facility] [address] [address] Jesús Ku MD Loin pain-hematuria syndrome (Primary Dx); Persistent proteinuria 01/30/2025 3:00 PM EDT [facility] Visit [facility] [address] [address] Jesús Ku MD Loin pain-hematuria syndrome (Primary Dx); Gross hematuria from Last 3 Months Immunizations Immunization Administration Dates Next Due Pfizer SARS-COV-2 01/31/2021,01/09/2021 Family History Medical History Relation Comments Diabetes Father Heart disease Maternal Grandmother Dementia Mother Stroke Mother Raisa Parkinson White syndrome Mother Relation Status Comments Father Maternal Grandmother Mother Social History Tobacco Use Types Packs/Day Years Used Date Smoking Tobacco: Some Days Cigarettes Smokeless Tobacco: Never Tobacco Cessation:Ready to Q uit: Not Asked; Counseling Given: Not Answered Alcohol Use Standard Drinks/Week Comments Not Currently 0 (1 standard drink = 0.6 oz pur e alcohol) occasionally / socal Comments Unknown Sex and Gender Information Value Date Recorded Sex Assigned at Not on file Legal Sex Female 2:00 PM EDT Gender Identity Not on file Sexual Orientation Not on file Last Filed Vital Signs Vital Sign Reading Time Taken Comments Blood Pressure 116/64 03/04/2025 3:52 PM EDT Pulse 94 03/04/2025 3:52 PM EDT Temperature - - Respiratory Rate - - Oxygen Saturation 99% 01/30/2025 3:39 PM EDT Inhaled Oxygen Concentration - - Weight 58 kg (127 lb 12.8 oz) 03/04/2025 3:52 PM EDT Height - - Body Mass Index - - Plan of Treatment Upcoming Encounters Date Type Department Care Team (Late st Contact Info) Description 04/30/2025 3:00 PM EDT [facility] [address] [address] Jesús Ku MD [address] [address] Health Maintenance Due Date Last Done Comments Breast Cancer Screening 1965 Hepatitis B Vaccine (1 of 3 - 19+ 3-dose series) 07/22 Pneumococcal Vaccine: 50+ Years (1 of 2 - PCV) 984 Colorectal Cancer Screening: Annual FOBT 2014 Colorectal Cancer Screening: Colonoscopy 2014 Colorectal Cancer Screening: Sigmoidoscopy 2014 Diabetes: Hemoglobin A1C 02/26/2025 Diabetes: Ophthalmology Exam 02/26/2025 Diabetes: Pedal Pulse Checked 02/26/2025 Diabetes: Sensory Foot Exam 02/26/2025 Diabetes: Visual Foot Exam 02/26/2025 Influenza Vaccine (#1) 2025 Procedures Procedure Name Priority Date/Time Associated Diagnosis Comments PROTEIN / CREATININE RATIO, URINE Routine 04/09/2025 3:58 PM EDT Loin pain-hematuria syndrome Gross hematuria C4 COMPLEMENT Routine 04/09/2025 3:50 PM EDT Loin pain-hematuria syndrome Gross hematuria C3 COMPLEMENT Routine 04/09/2025 3:50 PM EDT Loin pain-hematuria syndrome Gross hematuria ANTI-NEUTROPHILIC CYTOPLASMIC ANTIBODY Routine 04/09/2025 3:50 PM EDT Loin pain-hematuria syndrome Gross hematuria RENAL FUNCTION PANEL Routine 04/09/2025 3:50 PM EDT Loin pain-hematuria syndrome Gross hematuria from Last 3 Months Results * (ABNORMAL) Protein, Total, Random Urine w/Creatinine (Protein/Creat Ratio) (04/09/2025 3:58 PM EDT) Protein, Ur 189 mg/dL [facility] Urine Protein/Creati nine Ratio 0.65(H) <=0.20 mg/mg creat [facility] Creatinine, Urine 293.0 mg/dL [facility] Urine Urine specimen obtained by clean catch procedure / Unknown 04/09/2025 3:58 PM EDT 04/09/2025 4:03 PM EDT Jesús Ku MD LAB URINE ORDERABLES Final Re sult Performing Organization Address [facility] Co de Phone Number [facility] [address] [place] [address] * Anti-neutrophilic cytoplasmic antibody (04/09/2025 3:50 PM EDT) Pathologist [facility] Myeloperoxidase Ab Negative Negative [facility] Myeloperoxidase Quantitative 0 <=20 units [facility] Proteinase 3 Ab Negative Negative [facility] PR3 Ab 5 <=20 units [facility] Blood Venous blood / Unknown 04/09/2025 3:50 PM EDT 04/09/2025 4:02 PM EDT Jesús Ku MD LAB BLOOD ORDERABLES Final Re sult Performing Organization Address [facility] de Phone Number [facility] [address] [place] [address] * C3 complement (04/09/2025 3:50 PM EDT) C3 Complement 126 88 - 201 mg/dL [facility] Blood Venous blood / Unknown 04/09/2025 3:50 PM EDT 04/09/2025 4:03 PM EDT Jesús Ku MD LAB BLOOD ORDERABLES Final Re sult Performing Organization Address [facility] Co de Phone Number [facility] [address] [place] [address] * (ABNORMAL) C4 complement (04/09/2025 3:50 PM EDT) C4 Complement 48(H) 16 - 47 mg/dL [facility] Blood Venous blood / Unknown 04/09/2025 3:50 PM EDT 04/09/2025 4:03 PM EDT us Jesús Ku MD LAB BLOOD ORDERABLES Final Re sult RANI [facility] [address] [place] [address] * (ABNORMAL) Renal Function Panel (04/09/2025 3:50 PM EDT) Sodium 140 133 - 145 mmol/L [facility] Potassium 3.4(L) 3.5 - 5.5 mmol/L [facility] Chloride 107 96 - 110 mmol/L [facility] Bicarbonate (CO2) 30 21 - 32 mmol/L [facility] Anion Gap 3 3 - 11 [facility] Glucose 108(H) 70 - 100 mg/dL [facility] BUN 11 5 - 25 mg/dL [facility] Creatinine Serum 0.90 0.50 - 1.10 mg/dL [facility] eGFR 74 >=60 mL/min/1. 73m2 [facility] Comment:Calculation based on the Chronic Kidney Disease Epidemiology Collaboration (CKD-EPI) equation refit without adjustment for race. BUN/Creatinine Ratio 12.2 [facility] Albumin 3.7 3.2 - 5.0 g/dL [facility] Calcium 9.7 8.5 - 10.5 mg/dL [facility] Phosphorus 3.7 2.5 - 4.5 mg/dL [facility] Blood Venous blood / Unknown 04/09/2025 3:50 PM EDT 04/09/2025 4:03 PM EDT us Jesús Ku MD LAB BLOOD ORDERABLES Final Re sult [facility] [address] [place] [address] from Last 3 Months Insurance [facility] ([id number]) [place] [address] ([id number]) Care Teams Blender Snuff Relationship Specialty Start Date End Date Ancelmo Morales NP [address] [place] [address] PCP - General Nurse Practitioner 09/25/24
--- OUTSIDE RECORDS SUMMARY | 2025-04-19 12:55 | XMS_ITS | Clinical Summary ---
Author Organization [facility] official.fm [facility] Address [address] [facility] [place] [address] Phone Care Team Providers Care Project Management Instructor Name Role Phone Lionel Platt MD Primary Care Provider [phone] Allergies No known active allergies Medications albuterol HFA (PROAIR HFA ; PROVENTIL HFA ; VENTOLIN HFA) 90 mcg/actuation inhaler Inhale 2 puffs by mouth every 4 (four) hours if needed. every 4 to 6 hours as needed Active Symbicort 80-4.5 mcg/actuation inhaler Inhale 2 puffs by mouth 2 (two) times a day. 4 Active buPROPion SR (WELLBUTRIN SR) 150 mg 12 hr tablet Take 1 tablet (150 mg total) by mouth 2 (two) times a day. 4 Active cetirizine (ZyrTEC) 10 mg tablet Take 1 tablet (10 mg total) by mouth 1 (one) time each day. for 90 days 4 Active clonazePAM (KlonoPIN) 1 mg tablet Take 1 tablet (1 mg total) by mouth 1 (one) time each day. Active cloNIDine (CATAPRES) 0.1 mg tablet Take 1 tablet (0.1 mg total) by mouth 2 (two) times a day. for 30 days Active cycloSPORINE (RESTASIS) 0.05 % ophthalmic emulsion Administer 1 drop into both eyes 2 (two) times a day. 4 Active doxycycline (VIBRAMYCIN) 100 mg capsule Take 1 capsule (100 mg total) by mouth 2 (two) times a day. for 14 days 4 Active estradioL (ESTRACE) 1 mg tablet Take 1 tablet (1 mg total) by mouth 1 (one) time each day. Active fluticasone propionate (FLONASE) 50 mcg/actuation nasal spray Administer 1 spray into each nostril 1 (one) time each day. Active folic acid (FOLVITE) 1 mg tablet Take 1 tablet (1 mg total) by mouth 1 (one) time each day. Active gabapentin (NEURONTIN) 300 mg capsule Take 1 capsule (300 mg total) by mouth 2 (two) times a day. for 30 days 4 Active ketotifen fumarate (ZADITOR) 0.035 % ophthalmic solution Administer 1 drop into both eyes 2 (two) times a day. 4 Active omeprazole (PriLOSEC) [address] capsule Take 1 capsule (40 mg total) by mouth 1 (one) time each day. Active traZODone (DESYREL) 100 mg tablet Take 1 tablet (100 mg total) by mouth at bedtime. Active venlafaxine HCl (venlafaxine ER) 150 mg 24 hr tablet Take 1 tablet (150 mg total) by mouth 1 (one) time each day with breakfast. Active venlafaxine (EFFEXOR) 75 mg tablet Take 1 tablet (75 mg total) by mouth 2 (two) times a day. Active Active Problems Problem Noted Date Diagnosed Date Hypertension 11/19/2020 Overview (12/24/2024): Last Assessment & Plan: Patient's blood pressure is mildly elevated today with a reading of 140/90 on recheck. The patient reports she has not taken her lisinopril yet today. We discussed the importance of medication adherence. She will continue to monitor her blood pressures at home and notify me if they remain consistently elevated greater than 140/90. We will continue her current regimen. Assessment & Plan (12/26/2024 2:20 PM EDT): Patient's blood pressure today is well-controlled with a reading 118/80. Her antihypertensive medication regimen was recently adjusted and she continues on clonidine. She will continue to monitor her blood pressures at home as she notes occasional elevated readings when she is anxious or stressed or in pain. No changes today. She will also continue to follow with her PCP. Orders: ECG 12 lead Palpitations 11/13/2020 Overview (12/24/2024): Last Assessment & Plan: The patient was experiencing palpitations due to frequent PVCs. She was started on beta-mariana therapy with metoprolol that resulted in improvement in her symptoms. Left heart catheterization in 2018 did not show any significant CAD. Echocardiogram in February 2021 showed a normal LVEF. At this point, we will continue her current medical therapy Substance use 08/12/2020 Overview (12/24/2024): Cocaine Dependence w/ Withdrawal added to Medical Summary 01/23/2019 Resolved Problems Problem Noted Date Diagnosed Date Resolved Date NSTEMI (non-ST elevated myoc ardial infarction) ([facility] V24, [facility] V28) 03/23/2023 0 12/26/2024 Overview (12/24/2024): TYPE II Last Assessment & Plan: The patient was recently seen at [facility] was found to have NSTEMI in the setting of cocaine use. She completed a nuclear stress test May 2023 which was normal. She denies any exertional symptoms. Encounters Date Type Department Care Team Description 04/11/2025 2:10 PM EDT - 04/11/2025 11:59 PM EDT Hospital Encounter [facility] [address] [place] [address] Fibromyalgia; Bilateral primary osteoarthritis of knee Discharge Disposition: Home or Self Care 04/11/2025 2:09 PM EDT - 04/11/2025 11:59 PM EDT Hospital Encounter [facility] [address] [place] [address] Fibromyalgia; Bilateral primary osteoarthritis of knee Discharge Disposition: Home or Self Care 04/11/2025 2:09 PM EDT - 04/11/2025 11:59 PM EDT Hospital Encounter [facility] [address] [place] [address] Fibromyalgia; Bilateral primary osteoarthritis of knee Discharge Disposition: Home or Self Care 04/11/2025 2:06 PM EDT - 04/11/2025 11:59 PM EDT Hospital Encounter [facility] [address] [place] [address] Fibromyalgia; Bilateral primary osteoarthritis of knee Discharge Disposition: Home or Self Care from Last 3 Months Surgical History Surgery Date Site/Laterality Comments BELT ABDOMINOPLASTY PROCEDURE: HISTORICAL TUMMY TUCK OTHER SURGICAL HISTORY PROCEDURE: ENLARGEMENT OF BREAST W/O IMPLANT COLONOSCOPY 2015 PROCEDURE: HISTORICAL COLONOSCOPY; COMMENT: normal MOUTH SURGERY PROCEDURE: ORAL SURGERY PROCEDURE OTHER SURGICAL HISTORY PROCEDURE: VT NASAL/SINUS NDSC SURG W/BX POLYPC/DBRDMT SPX Medical History Medical History Date Comments Migraines DX:Migraines Depression DX:Depression; C OMMENT: follows with [facility] Anxiety DX:Anxiety Insomnia DX:Insomnia Imbalance DX:Imbalance Fibromyalgia 08/12/2020 DX:Fibromyalgia Substance use 08/12/2020 DX:Substance use ; COMMENT: Cocaine Dependence w/ Withdrawal added to Medical Summary 01/23/2019 Chronic sinusitis 08/12/2020 DX:Chronic sin usitis; COMMENT: Congenital perforated nasal septum. Onychomycosis 08/12/2020 DX:Onychomycosis Tobacco use 08/12/2020 DX:Tobacco use Colon polyps 08/12/2020 DX:Colon polyps; COMMENT: 07/08/2020 noted: colonoscopy pathology report shows pre-cancerous polyps. No path report. Chronic insomnia DX:Chronic inso mnia Nasal septal perforation DX:Nasa l septal perforation; COMMENT: from cocaine use Asthma DX:Asthma Family History Medical History Relation Name Comments Diabetes Father's side 1 Hypertension Mother Relation Name Status Comments Father's side 1 Father's side 2 Mother Social History Tobacco Use Types Packs/Day Years Used Date Smoking Tobacco: Every Day Cigarettes Smokeless Tobacco: Former Alcohol Use Standard Drinks/Week Comments No 0 (1 standard drink = 0.6 oz pur e alcohol) Comments Unknown Sex and Gender Information Value Date Recorded Sex Assigned at Not on file Legal Sex Female 4:17 AM EST Gender Identity Not on file Sexual Orientation Not on file Obstetrics History Last Filed Vital Signs Vital Sign Reading Time Taken Comments Blood Pressure 118/80 12/26/2024 1:52 PM EDT Pulse 83 12/26/2024 1:52 PM EDT Temperature - - Respiratory Rate - - Oxygen Saturation 99% 12/26/2024 1:52 PM EDT Inhaled Oxygen Concentration - - Weight 58.1 kg (128 lb 1.6 oz) 12/26/2024 1:52 P M EDT Height 162.6 cm (5' 4 ) 12/26/2024 1:52 PM EDT Body Mass Index 21.99 12/26/2024 1:52 PM EDT Plan of Treatment Health Maintenance Due Date Last Done Comments Diabetes: Annual Foot Exam 1975 Diabetes: Annual Retina Eye Exam 1975 DTaP,Tdap,and Td Vaccines (1 - Tdap) 1984 Hepatitis A Vaccines (1 of 2 - Risk 2-dose series) 1984 Hepatitis B Vaccines (1 of 3 - 19+ 3-dose series) 1984 Pneumococcal Vaccine: 50+ Years (1 of 2 - PCV) 1984 Cervical Cancer Screening: Pap Smear 1986 Colorectal Cancer Screening: Colonoscopy 08/08/2022 HIV Screening 08/08/2022 Hepatitis C Screening 08/08/2022 Medicare Annual Wellness Visit 08/08/2022 Social Influencers of Health Screening 08/08/2022 Breast Cancer Screening 11/03/2022 11/03/2020, 06/02 Zoster Vaccines (2 of 2) 03/20/2023 01/23/2023 COVID-19 Vaccine ( season) 2024 02/05/2022, 01/31/2021, 01/09/2021 Depression Screening 09/05/2024 Influenza Vaccine (#1) 2025 , 07/07/2022, 07/08/2020, Additional history exists Diabetes: Blood Sugar Control Test (HGBA1C) 10/10/2025 04/09/2025 Diabetes: Annual Urine Albumin-Creatinine Ratio (uACR) 04/09/2026 04/09/2025 Diabetes: Annual GFR (Glomerular Filtration Rate) 04/09/2026 04/09/2025, 04/09/2025 Hypertension/CHF/CAD Annual BMP Blood Test 04/09/2026 04/09/2025, 04/09/2025 Cholesterol Screening (Lipid Panel) 04/09/2030 04/09/2025 RSV Immunization Adult Patients (1 - 1-dose 75+ series) 2040 HIB Vaccines Aged Out No longer eligi ble based on patient's age to complete this topic HPV Vaccines Aged Out No longer eligi ble based on patient's age to complete this topic IPV Vaccines Aged Out No longer eligi ble based on patient's age to complete this topic MMR Vaccines Aged Out No longer eligi ble based on patient's age to complete this topic Meningococcal ACWY Vaccine Aged Out N o longer eligible based on patient's age to complete this topic Meningococcal B Vaccine Aged Out No l onger eligible based on patient's age to complete this topic RSV Immunization Patients Under 20 months Aged Out No longer eligible based on patient's age to complete this topic Varicella Vaccines Aged Out No longer eligible based on patient's age to complete this topic Procedures Procedure Name Priority Date/Time Associated Diagnosis Comments XR ANKLE 3+ VIEWS BILAT Routine 04/11/2025 2:49 PM EDT Fibromyalgia Bilateral primary osteoarthritis of knee XR HAND 3+ VIEWS BILAT Routine 04/11/2025 2:49 PM EDT Fibromyalgia Bilateral primary osteoarthritis of knee XR WRIST 3+ VIEWS BILAT Routine 04/11/2025 2:49 PM EDT Fibromyalgia Bilateral primary osteoarthritis of knee XR KNEE 4+ VIEWS BILAT Routine 04/11/2025 2:48 PM EDT Fibromyalgia Bilateral primary osteoarthritis of knee URINALYSIS WITH REFLEX MICROSCOPIC Routine 04/09/2025 3:58 PM EDT Diabetes mellitus (CMS/HCC V24, [facility] V28) Vitamin B12 deficiency anemia Routine general medical examination at a health care facility Screening for lipoid disorders PROTEIN AND CREATININE WITH RATIO, URINE Routine 04/09/2025 3:58 PM EDT Urologic bleed Gross hematuria URINALYSIS WITH REFLEX MICROSCOPIC Routine 04/09/2025 3:58 PM EDT Diabetes mellitus (CMS/HCC V24, CMS/HCC V28) Vitamin B12 deficiency anemia Routine general medical examination at a health care facility Screening for lipoid disorders MICROALBUMIN CREATININE URINE RATIO Routine 04/09/2025 3:58 PM EDT Diabetes mellitus (CMS/HCC V24, CMS/HCC V28) Vitamin B12 deficiency anemia Routine general medical examination at a health care facility Screening for lipoid disorders CBC WITH AUTO DIFFERENTIAL Routine 04/09/2025 3:50 PM EDT Diabetes mellitus (CMS/HCC V24, CMS/HCC V28) Vitamin B12 deficiency anemia Routine general medical examination at a health care facility Screening for lipoid disorders THYROID STIMULATING HORMONE Routine 04/09/2025 3:50 PM EDT Diabetes mellitus (CMS/HCC V24, CMS/HCC V28) Vitamin B12 deficiency anemia Routine general medical examination at a health care facility Screening for lipoid disorders HEMOGLOBIN A1C Routine 04/09/2025 3:50 PM EDT Diabetes mellitus (CMS/HCC V24, [facility] V28) Vitamin B12 deficiency anemia Routine general medical examination at a health care facility Screening for lipoid disorders LIPID PANEL WITH REFLEX TO DIRECT LDL Routine 04/09/2025 3:50 PM EDT Diabetes mellitus (CMS/HCC V24, CMS/HCC V28) Vitamin B12 deficiency anemia Routine general medical examination at a health care facility Screening for lipoid disorders COMPREHENSIVE METABOLIC PANEL Routine 04/09/2025 3:50 PM EDT Diabetes mellitus (CMS/HCC V24, CMS/HCC V28) Vitamin B12 deficiency anemia Routine general medical examination at a health care facility Screening for lipoid disorders CBC AND DIFFERENTIAL Routine 04/09/2025 3:50 PM EDT Diabetes mellitus (CMS/HCC V24, CMS/HCC V28) Vitamin B12 deficiency anemia Routine general medical examination at a health care facility Screening for lipoid disorders VITAMIN B12 Routine 04/09/2025 3:50 PM EDT Diabetes mellitus (CMS/HCC V24, CMS/HCC V28) Vitamin B12 deficiency anemia Routine general medical examination at a health care facility Screening for lipoid disorders C4 COMPLEMENT Routine 04/09/2025 3:50 PM EDT Urologic bleed Gross hematuria C3 COMPLEMENT Routine 04/09/2025 3:50 PM EDT Urologic bleed Gross hematuria ANTI-NEUTROPHILIC CYTOPLASMIC ANTIBODY Routine 04/09/2025 3:50 PM EDT Urologic bleed Gross hematuria RENAL FUNCTION PANEL Routine 04/09/2025 3:50 PM EDT Urologic bleed Gross hematuria LEXY SCREENING DIGITAL Routine 11/03/2020 3:15 PM EST Encounter for screening mammogram for malignant neoplasm of breast from Last 3 Months or Most Recently Relevant to Health Maintenance Results * XR Hand 3+ Views bilat (04/11/2025 2:49 PM EDT) Anatomical Region Laterality Modality Upper Extremities, Hand Bilateral Radiogra phic Imaging 04/12/2025 9:33 AM EDT Impressions 04/12/2025 9:35 AM EDT Normal examination. Code 37339, 87090, 83509, 32947 -------- FINAL REPORT -------- Dictated By: Gregorio Lee Dictated Date: 04/12/2025 09:33 ET Assigned Physician: Gregorio Lee Reviewed and Electronically Signed By: Gregorio Lee Signed Date: 04/12/2025 09:35 ET Workstation ID: [id number] Transcribed By: Self Edit Transcribed Date: 04/12/2025 09:33 ET Narrative 04/12/2025 9:35 AM EDT HISTORY: The patient is a 59-year-old female with fibromyalgia and bilateral hand pain. No history of trauma is provided. FINDINGS: AP, lateral, and oblique views of the right wrist, AP, lateral, and oblique views of the left wrist, AP, lateral, and oblique views of the left hand, and AP, lateral, and oblique views of the left hand are obtained. The study demonstrates no fracture, dislocation, arthritic change, or other bony abnormality in the hands and wrists bilaterally. No soft tissue abnormality is seen. Procedure Note Gregorio Lee MD - 04/12/2025 HISTORY: The patient is a 59-year-old female with fibromyalgia andbilateral hand pain. No history of trauma is provided. FINDINGS: AP, lateral, and oblique views of the right wrist, AP, lateral,and oblique views of the left wrist, AP, lateral, and oblique views of theleft hand, and AP, lateral, and oblique views of the left hand areobtained. The study demonstrates no fracture, dislocation, arthriticchange, or other bony abnormality in the hands and wrists bilaterally. Nosoft tissue abnormality is seen. IMPRESSION: Normal examination. Code 99204, 11101, 51944, 41361 -------- FINAL REPORT -------- Dictated By: Gregorio Lee Dictated Date: 04/12/2025 09:33 ET Assigned Physician: Gregorio Lee Reviewed and Electronically Signed By: Gregorio Lee Signed Date: 04/12/2025 09:35 ET Workstation ID: [id number] Transcribed By: Self Edit Transcribed Date: 04/12/2025 09:33 ET us Jojo Back MD IMG XR PROCEDURES Final Result * XR Wrist 3+ Views bilat (04/11/2025 2:49 PM EDT) Anatomical Region Laterality Modality Upper Extremities, Wrist Bilateral Radiogr aphic Imaging 04/12/2025 9:33 AM EDT Narrative 04/12/2025 9:33 AM EDT Please see combined report with radiographs of the hands bilaterally. -------- FINAL REPORT -------- Dictated By: Gregorio Lee Dictated Date: 04/12/2025 09:33 ET Assigned Physician: Gregorio Lee Reviewed and Electronically Signed By: Gregorio Lee Signed Date: 04/12/2025 09:33 ET Workstation ID: [id number] Transcribed By: Self Edit Transcribed Date: 04/12/2025 09:33 ET Procedure Note Gregorio Lee MD - 04/12/2025 Please see combined report with radiographs of the hands bilaterally. -------- FINAL REPORT -------- Dictated By: Gregorio Lee Dictated Date: 04/12/2025 09:33 ET Assigned Physician: Gregorio Lee Reviewed and Electronically Signed By: Gregorio Lee Signed Date: 04/12/2025 09:33 ET Workstation ID: [id number] Transcribed By: Self Edit Transcribed Date: 04/12/2025 09:33 ET us Jojo Back MD IMG XR PROCEDURES Final Result * XR Ankle 3+ Views bilat (04/11/2025 2:49 PM EDT) Anatomical Region Laterality Modality Lower Extremities, Calcaneus Bilateral Rad iographic Imaging 04/12/2025 9:09 AM EDT Impressions 04/12/2025 9:09 AM EDT Normal examination. Code 94389, 82527 -------- FINAL REPORT -------- Dictated By: Gregorio Lee Dictated Date: 04/12/2025 09:09 ET Assigned Physician: Gregorio Lee Reviewed and Electronically Signed By: Gregorio Lee Signed Date: 04/12/2025 09:09 ET Workstation ID: [id number] Transcribed By: Self Edit Transcribed Date: 04/12/2025 09:09 ET Narrative 04/12/2025 9:09 AM EDT HISTORY: The patient is a 59-year-old female with bilateral ankle pain. No history of trauma is provided. FINDINGS: AP, lateral, and oblique views of the right ankle, along with AP, lateral, and oblique views of the left ankle, are obtained. The study demonstrates no fracture, dislocation, arthritic change, or other bony abnormality in either ankle. No soft tissue abnormality is seen. Procedure Note Gregorio Lee MD - 04/12/2025 HISTORY: The patient is a 59-year-old female with bilateral ankle pain.No history of trauma is provided. FINDINGS: AP, lateral, and oblique views of the right ankle, along withAP, lateral, and oblique views of the left ankle, are obtained. The studydemonstrates no fracture, dislocation, arthritic change, or other bonyabnormality in either ankle. No soft tissue abnormality is seen. IMPRESSION: Normal examination. Code 31841, 55286 -------- FINAL REPORT -------- Dictated By: Gregorio Lee Dictated Date: 04/12/2025 09:09 ET Assigned Physician: Gregorio Lee Reviewed and Electronically Signed By: Gregorio Lee Signed Date: 04/12/2025 09:09 ET Workstation ID: [id number] Transcribed By: Self Edit Transcribed Date: 04/12/2025 09:09 ET us Jojo Back MD IMG XR PROCEDURES Final Result * XR Knee 4+ Views bilat (04/11/2025 2:48 PM EDT) Anatomical Region Laterality Modality Lower Extremities, Knee Bilateral Radiogra phic Imaging 04/12/2025 9:31 AM EDT Impressions 04/12/2025 9:32 AM EDT Normal examination of the knees. Code 52926, 84198 -------- FINAL REPORT -------- Dictated By: Gregorio Lee Dictated Date: 04/12/2025 09:31 ET Assigned Physician: Gregorio Lee Reviewed and Electronically Signed By: Gregorio Lee Signed Date: 04/12/2025 09:32 ET Workstation ID: [id number] Transcribed By: Self Edit Transcribed Date: 04/12/2025 09:31 ET Narrative 04/12/2025 9:32 AM EDT HISTORY: The patient is a 59-year-old female with fibromyalgia and bilateral knee pain. No history of trauma is provided. FINDINGS: Lateral, internal rotation, and external rotation views of the right knee, lateral, internal rotation, and external rotation views of the left knee, and standing AP views of both knees are obtained. The study demonstrates no fracture, dislocation, arthritic change, or other bony abnormality in either knee. No joint effusion or other soft tissue abnormality is seen. Procedure Note Gregorio Lee MD - 04/12/2025 HISTORY: The patient is a 59-year-old female with fibromyalgia andbilateral knee pain. No history of trauma is provided. FINDINGS: Lateral, internal rotation, and external rotation views of theright knee, lateral, internal rotation, and external rotation views of theleft knee, and standing AP views of both knees are obtained. The studydemonstrates no fracture, dislocation, arthritic change, or other bonyabnormality in either knee. No joint effusion or other soft tissueabnormality is seen. IMPRESSION: Normal examination of the knees. Code 74428, 30708 -------- FINAL REPORT -------- Dictated By: Gregorio Lee Dictated Date: 04/12/2025 09:31 ET Assigned Physician: Gregorio Lee Reviewed and Electronically Signed By: Gregorio Lee Signed Date: 04/12/2025 09:32 ET Workstation ID: [id number] Transcribed By: Self Edit Transcribed Date: 04/12/2025 09:31 ET us Jojo Back MD IMG XR PROCEDURES Final Result * (ABNORMAL) Urinalysis with reflex microscopic (04/09/2025 3:58 PM EDT) Specific [place] Urine >1.045(H) 1.003 - 1.030 LAB URINALYSIS - AUTOMATED METHOD 04/09/2025 4:58 PM [facility] pH, Urine 5.5 5.0 - 8.0 pH LAB URINALYSIS - AUTOMATED METHOD 04/09/2025 4:58 PM [facility] Leukocytes, Urine Negative Negative LAB URINALYSIS - AUTOMATED METHOD 04/09/2025 4:58 PM [facility] Nitrite, Urine Negative Negative LAB URINALYSIS - AUTOMATED METHOD [facility]25 [facility] Protein, Urine 300(A) <=Trace mg/dL LAB URINALYSIS - AUTOMATED METHOD 04/09/2025 4:58 PM [facility] Glucose, Urine Negative Negative mg/dL LAB URINALYSIS - AUTOMATED METHOD 04/09/2025 4:58 PM [facility] Ketones, Urine Trace(A) Negative mg/dL LAB URINALYSIS - AUTOMATED METHOD 04/09/2025 4:58 PM EDT [facility] Urobilinogen , Urine 1.0 0.2 - 1.0 mg/dL LAB URINALYSIS - AUTOMATED METHOD 04/09/2025 4:58 PM T [facility] Bilirubin, Urine Negative Negative LAB URINALYSIS - AUTOMATED METHOD 04/09/2025 4:58 PM EDT [facility] Blood, Urine Large(A) Negative LAB URINALYSIS - AUTOMATED METHOD 04/09[facility]2025 4:[facility] RBC, Urine >4,000(H) 0 - 4 /HPF LAB URINALYSIS - AUTOMATED METHOD 04/09/2025 4:58 PM [facility] WBC, Urine 40.1(H) 0 - 4 /HPF LAB URINALYSIS - AUTOMATED METHOD 04/09/2025 4:58 PM T [facility] Squamous Epithelial, Urine 50 0 - 60 /LPF LAB URINALYSIS - AUTOMATED METHOD 04/09/2025 4:58 PM EDT [facility] Bacteria, Urine Many(A) Negative /HPF LAB URINALYSIS - AUTOMATED METHOD 04/09/2025 4:58 PM [facility] Hyaline Casts, Urine 0.0 0 - 3 /LPF LAB URINALYSIS - AUTOMATED METHOD 04/09/2025 4:58 PM T [facility] Urine Urine specimen obtained by clean catch procedure / Unknown Non-blood Collection / Unknown 04/09/2025 3:58 PM EDT 04/09/2025 4:03 PM EDT us Ancelmo Morales NP LAB URINE ORDERABLES Final Re sult [facility] [address] [place] [address], [place] [phone] * (ABNORMAL) Protein and creatinine with ratio, urine (04/09/2025 3:58 PM EDT) Protein, Urine 189 mg/dL LAB CHEMISTRY METHOD 04/09/2025 5:23 PM EDT [facility] Prot/Creat, Ur 0.65(H) <=0.20 mg/mg creat LAB CHEMISTRY METHOD 04/09/2025 5:23 PM EDT [facility] Creatinine, Urine 293.0 mg/dL LAB CHEMISTRY METHOD 04/09/2025 5:23 PM EDT [facility] Urine Urine specimen obtained by clean catch procedure / Unknown Non-blood Collection / Unknown 04/09/2025 3:58 PM EDT 04/09/2025 4:03 PM EDT Jesús Ku MD LAB URINE ORDERABLES Final Re sult [facility] [address] [place] [address], * (ABNORMAL) Microalbumin creatinine urine ratio (04/09/2025 3:58 PM EDT) Creatinine, Urine 293.0 mg/dL LAB CHEMISTRY METHOD 04/09/2025 5:23 PM EDT [facility] Microalb, Ur 958.0(H) 0.0 - 29.0 mg/L LAB CHEMISTRY METHOD 04/09/2025 5:23 PM EDT [facility] Microalb/Crea t Ratio 327(H) <30 mg/g creat LAB CHEMISTRY METHOD 04/09/2025 5:23 PM EDT [facility] Urine Urine specimen obtained by clean catch procedure / Unknown Non-blood Collection / Unknown 04/09/2025 3:58 PM EDT 04/09/2025 4:03 PM EDT us Ancelmo Morales [employer] LAB URINE ORDERABLES Final Re sult Performing Organization Address City/[facility]/ZIP Co de Phone Number [facility] [address] [place] [address], [place] [phone] * Lipid panel with reflex to direct LDL (04/09/2025 3:50 PM EDT) Cholesterol 190 0 - 200 mg/dL LAB CHEMISTRY METHOD 04/09/2025 4:45 PM EDT [facility] Triglycerides 122 0 - 150 mg/dL LAB CHEMISTRY METHOD 04/09/2025 4:45 PM EDT [facility] HDL 77 >=40 mg/dL LAB CHEMISTRY METHOD 04/09/2025 4:45 PM EDT [facility] LDL Calculated 89 0 - 100 mg/dL LAB CHEMISTRY METHOD 04/09/2025 4:45 PM EDT [facility] Comment:Estimated LDL Calcul ated using equation: Total cholesterol - HDL cholesterol - (Triglycerides/5) VLDL Cholesterol Yosi 24.4 mg/dL LAB CHEMISTRY METHOD 04/09/2025 4:45 PM EDT [facility] Non HDL Chol. (LDL+VLDL) 113 <145 mg/dL LAB CHEMISTRY METHOD 04/09/2025 4:45 PM EDT [facility] Chol/HDL Ratio 2.5 0.0 - 4.4 LAB CHEMISTRY METHOD 04/09/2025 4:45 PM EDT [facility] Blood Venous blood specimen / Unknown Venipuncture / Unknown 04/09/2025 3:50 PM EDT 04/09/2025 4:02 PM EDT us Ancelmo Morales [employer] LAB BLOOD ORDERABLES Final Re sult [facility] [address] [place] [address], [place] [phone] * (ABNORMAL) CBC auto differential (04/09/2025 3:50 PM EDT) [facility] Signature WBC 6.7 4.8 - 10.8 K/mcL LAB HEMETOLOGY METHOD 04/09/2025 4:30 PM EDT [facility] RBC 4.60 3.80 - 4.80 M/mcL LAB HEMETOLOGY METHOD 04/09[facility]2025 [facility] Hemoglobin 11.7 11.5 - 16.0 g/dL LAB HEMETOLOGY METHOD 04/09/2025 4:30 PM EDT [facility] Hematocrit 39.5 35.0 - 47.0 % LAB HEMETOLOGY METHOD 04/09/2025 4:[facility] MCV 85.1 79.0 - 98.0 FL LAB HEMETOLOGY METHOD 04/09/2025 4:30 [facility] MCH 25.2(L) 27.0 - 32.0 pcg LAB HEMETOLOGY METHOD 04/09/2025 4:30 [facility] MCHC 29.6(L) 32.0 - 37.0 g/dL LAB HEMETOLOGY METHOD 04/09/2025 4:30 [facility] RDW 14.2 11.0 - 15.0 % LAB HEMETOLOGY METHOD 04/09/2025 4:30 [facility] Platelets 461(H) 130 - 400 K/mcL LAB HEMETOLOGY METHOD 04/09/2025 4:30 [facility] MPV 8.6 7.0 - 11.0 FL LAB HEMETOLOGY METHOD 04/09/2025 4:30 [facility] NRBC 0.0 <1.0 % LAB HEMETOLOGY METHOD 04/09/2025 4:30 [facility] NRBC Absolute 0.00 <0.10 K/mcL LAB HEMETOLOGY METHOD 04/09/2025 4:30 PM EDT [facility] Neutrophils Relative 60.8 % LAB HEMETOLOGY METHOD 04/09/2025 4:[facility] Lymphocytes Relative 25.4 % LAB HEMETOLOGY METHOD 04/09/2025 4:30 [facility] Monocytes Relative 10.3 % LAB HEMETOLOGY METHOD 04/09/2025 4:30 [facility] Eosinophils Relative 2.7 % LAB HEMETOLOGY METHOD 04/09/2025 4:30 [facility] Basophils Relative 0.7 % LAB HEMETOLOGY METHOD 04/09/2025 4:30 PM [facility] Immature Granulocytes Relative 0.1 % LAB HEMETOLOGY METHOD 04/09/2025 4:30 PM [facility] Neutrophils Absolute 4.06 1.50 - 7.00 K/mcL LAB HEMETOLOGY METHOD 04/09/2025 4:30 PM [facility] Lymphocytes Absolute 1.70 1.00 - 5.00 K/mcL LAB HEMETOLOGY METHOD 04/09/2025 4:30 PM [facility] Monocytes Absolute 0.69 0.20 - 1.00 K/mcL LAB HEMETOLOGY METHOD 04/09/2025 4:30 PM [facility] Eosinophils Absolute 0.18 0.00 - 0.50 K/mcL LAB HEMETOLOGY METHOD 04/09/2025 4:30 [facility] Basophils Absolute 0.05 0.00 - 0.20 K/mcL LAB HEMETOLOGY METHOD 04/09/2025 4:30 PM [facility] Immature Granulocytes Absolute 0.01 0.00 - 0.03 K/mcL LAB HEMETOLOGY METHOD 04/09/2025 4:30 PM [facility] Blood Venous blood specimen / Unknown Venipuncture / Unknown 04/09/2025 3:50 PM EDT 04/09/2025 4:02 PM EDT Ancelmo Morales NP LAB BLOOD ORDERABLES Final Re sult Performing Organization Address [facility]/ZIP Co de Phone Number [facility] [address] [place] [address], [place] [phone] * Anti-neutrophilic cytoplasmic antibody (04/09/2025 3:50 PM EDT) Pathologist [facility] Myeloperoxidase Ab Negative Negative LAB CHEMISTRY METHOD 04/10/2025 12:18 PM EDT [facility] Myeloperoxidase Ab, Quant 0 <=20 units LAB CHEMISTRY METHOD 04/10/2025 12:18 PM EDT [facility] Proteinase-3 Ab Negative Negative LAB CHEMISTRY METHOD 04/10/2025 12:18 PM EDT [facility] Proteinase-3 Ab Quant 5 <=20 units LAB CHEMISTRY METHOD 04/10/2025 12:18 PM EDT [facility] Blood Venous blood specimen / Unknown Venipuncture / Unknown 04/09/2025 3:50 PM EDT 04/09/2025 4:02 PM EDT Jesús Ku MD LAB BLOOD ORDERABLES Final Re sult Performing Organization Address [facility]/ZIP Co de Phone Number [facility] [address] [place] [address], [place] [phone] * C3 complement (04/09/2025 3:50 PM EDT) Pathologist [facility] C3 Complement 126 88 - 201 mg/dL LAB CHEMISTRY METHOD 04/09/2025 4:47 PM EDT [facility] Blood Venous blood specimen / Unknown Venipuncture / Unknown 04/09/2025 3:50 PM EDT 04/09/2025 4:03 PM EDT Jesús Ku MD LAB BLOOD ORDERABLES Final Re sult Performing Organization Address [facility] Co de Phone Number [facility] [address] [place] [address], [place] [phone] * (ABNORMAL) C4 complement (04/09/2025 3:50 PM EDT) [facility] C4 Complement 48(H) 16 - 47 mg/dL LAB CHEMISTRY METHOD 04/09/2025 4:47 PM EDT [facility] Blood Venous blood specimen / Unknown Venipuncture / Unknown 04/09/2025 3:50 PM EDT 04/09/2025 4:03 PM EDT Jesús Ku MD LAB BLOOD ORDERABLES Final Re sult Performing Organization Address [facility] Co de Phone Number [facility] [address] [place] [address], [place] [phone] * Thyroid stimulating hormone (04/09/2025 3:50 PM EDT) [facility] TSH 0.55 0.40 - 4.00 mcIU/mL LAB CHEMISTRY METHOD 04/09/2025 6:00 PM EDT [facility] Blood Venous blood specimen / Unknown Venipuncture / Unknown 04/09/2025 3:50 PM EDT 04/09/2025 4:02 PM EDT Ancelmo Morales NP LAB BLOOD ORDERABLES Final Re sult Performing Organization Address [facility]/ZIP Co de Phone Number [facility] [address] [place] [address], [place] [phone] * Hemoglobin A1c (04/09/2025 3:50 PM EDT) [facility] Hemoglobin A1C 5.7 <6.5 % LAB CHEMISTRY METHOD 04/09/2025 9:27 PM EDT [facility] Mean Bld Glu Estim. 117 mg/dL LAB CHEMISTRY METHOD 04/09/2025 9:27 PM EDT [facility] Blood Venous blood specimen / Unknown Venipuncture / Unknown 04/09/2025 3:50 PM EDT 04/09/2025 4:02 PM EDT Ancelmo Morales [employer] LAB BLOOD ORDERABLES Final Re sult [facility] [address] [place] [address], [place] [phone] * Vitamin B12 (04/09/2025 3:50 PM EDT) Vitamin B-12 320 250 - 900 pcg/mL LAB CHEMISTRY METHOD 04/09/2025 5:08 PM EDT [facility] Blood Venous blood specimen / Unknown Venipuncture / Unknown 04/09/2025 3:50 PM EDT 04/09/2025 4:02 PM EDT Ancelmo Morales [employer] LAB BLOOD ORDERABLES Final Re sult [facility] [address] [place] [address], [place] [phone] * (ABNORMAL) Renal function panel (04/09/2025 3:50 PM EDT) Sodium 140 133 - 145 mmol/L LAB CHEMISTRY METHOD 04/09/2025 4:46 PM EDT [facility] Potassium 3.4(L) 3.5 - 5.5 mmol/L LAB CHEMISTRY METHOD 04/09/2025 4:46 PM EDT [facility] Chloride 107 96 - 110 mmol/L LAB CHEMISTRY METHOD 04/09/2025 4:46 PM [facility] CO2 30 21 - 32 mmol/L LAB CHEMISTRY METHOD 04/09/2025 4:46 PM [facility] Anion Gap 3 3 - 11 LAB CHEMISTRY METHOD 04/09/2025 4:46 PM [facility] Glucose 108(H) 70 - 100 mg/dL LAB CHEMISTRY METHOD 04/09/2025 4:46 PM [facility] BUN 11 5 - 25 mg/dL LAB CHEMISTRY METHOD 04/09/2025 4:46 PM [facility] Creatinine 0.90 0.50 - 1.10 mg/dL LAB CHEMISTRY METHOD 04/09/2025 4:46 PM [facility] eGFR 74 >=60 mL/min/1. 73m2 LAB CHEMISTRY METHOD 04/09/2025 4:46 PM [facility] Comment:Calculation based on the Chronic Kidney Disease Epidemiology Collaboration (CKD-EPI) equation refit without adjustment for race. BUN/Creatinine Ratio 12.2 LAB CHEMISTRY METHOD 04/09/2025 4:46 PM [facility] Albumin 3.7 3.2 - 5.0 g/dL LAB CHEMISTRY METHOD 04/09/2025 4:46 PM [facility] Calcium 9.7 8.5 - 10.5 mg/dL LAB CHEMISTRY METHOD 04/09/2025 4:46 PM [facility] Phosphorus 3.7 2.5 - 4.5 mg/dL LAB CHEMISTRY METHOD 04/09/2025 4:46 PM [facility] Blood Venous blood specimen / Unknown Venipuncture / Unknown 04/09/2025 3:50 PM EDT 04/09/2025 4:03 PM EDT us Jesús Ku MD LAB BLOOD ORDERABLES Final Re sult [facility] [address] [place] [address], [place] [phone] * (ABNORMAL) Comprehensive metabolic panel (04/09/2025 3:50 PM EDT) Sodium 140 133 - 145 mmol/L LAB CHEMISTRY METHOD 04/09/2025 5:08 PM [facility] Potassium 3.5 3.5 - 5.5 mmol/L LAB CHEMISTRY METHOD 04/09/2025 5:08 PM [facility] Chloride 108 96 - 110 mmol/L LAB CHEMISTRY METHOD 04/09/2025 5:08 PM [facility] CO2 28 21 - 32 mmol/L LAB CHEMISTRY METHOD 04/09/2025 5:08 PM [facility] Anion Gap 4 3 - 11 LAB CHEMISTRY METHOD 04/09/2025 5:08 PM [facility] Glucose 105(H) 70 - 100 mg/dL LAB CHEMISTRY METHOD 04/09/2025 5:08 PM [facility] BUN 11 5 - 25 mg/dL LAB CHEMISTRY METHOD 04/09/2025 5:08 PM [facility] Creatinine 0.91 0.50 - 1.10 mg/dL LAB CHEMISTRY METHOD 04/09/2025 5:08 PM [facility] eGFR 73 >=60 mL/min/1. 73m2 LAB CHEMISTRY METHOD 04/09/2025 5:08 PM [facility] Comment:Calculation based on the Chronic Kidney Disease Epidemiology Collaboration (CKD-EPI) equation refit without adjustment for race. BUN/Creatinine Ratio 12.1 LAB CHEMISTRY METHOD 04/09/2025 5:08 PM [facility] Calcium 9.5 8.5 - 10.5 mg/dL LAB CHEMISTRY METHOD 04/09/2025 5:08 PM [facility] AST (SGOT) 17 10 - 42 unit/L LAB CHEMISTRY METHOD 04/09/2025 5:08 PM EDT [facility] ALT (SGPT) 11 10 - 60 unit/L LAB CHEMISTRY METHOD 04/09/2025 5:08 PM EDT [facility] Alkaline Phosphatase 118 42 - 121 unit/L LAB CHEMISTRY METHOD 04/09/2025 5:08 PM EDT [facility] Total Protein 7.3 6.0 - 8.0 g/dL LAB CHEMISTRY METHOD 04/09/2025 5:08 PM EDT [facility] Albumin 3.6 3.2 - 5.0 g/dL LAB CHEMISTRY METHOD 04/09/2025 5:08 PM EDT [facility] Total Bilirubin 0.3 0.0 - 1.4 mg/dL LAB CHEMISTRY METHOD 04/09/2025 5:08 PM EDT [facility] Blood Venous blood specimen / Unknown Venipuncture / Unknown 04/09/2025 3:50 PM EDT 04/09/2025 4:02 PM EDT us Ancelmo Morales [employer] LAB BLOOD ORDERABLES Final Re sult [facility] [address] [place] [address], * LEXY SCREENING DIGITAL (11/03/2020 3:15 PM EST) Anatomical Region Laterality Modality Mammography 11/03/2020 12:4 8 PM EST Narrative 11/03/2020 3:15 PM EST [facility] Diagnostic Imaging Department [address] [place] [address] Patient: CINDY CHAPA/Age/Sex: 1965 - 55 - F Unit#: [id number] Location/Status: SPDIMAM/REG CLI Mnemonic/Ordering Site: [facility] Ordering Physician: ROMEO MONTOYA MD [facility] Screening Digital - 11/03/20 - 142 EXAM: [facility] Screening Digital EXAM DATE AND TIME: 11/03/2020 2:23 PM HISTORY: Annual screening mammography. Bilateral breast implants. COMPARISON: 06/02/2018 TECHNIQUE: CC and MLO views of both breasts were obtained using full field digital mammography. Braden implant displaced views were also performed. Bilateral digital breast tomosynthesis was performed in the MLO projection. Computer aided detection with the [employer] was employed. TISSUE DENSITY: c. The breasts are heterogeneously dense, which may obscure small masses. FINDINGS: No suspicious masses, grouped microcalcifications, or areas of architectural distortion are seen. Bilateral breast implants are intact. The right implant is unable to be displaced. The skin and vascularity are unremarkable. IMPRESSION: Stable mammographic appearance of the breasts. No evidence of malignancy is seen. Fixed right breast implant. A negative mammogram in the presence of a clinically suspicious palpable abnormality does not preclude the possibility of malignancy or alter the indications for biopsy. BI-RADS: Category 2: Benign RECOMMENDATION(S): 1: Routine screening mammogram BILATERAL in 1 year. 41939, 23596 3342F, 7025F Dictating Physician: GEOVANNA AVINA MD Electronically Signed by: GEOVANNA AVINA MD Dic Date/Time: 11/03/20 1510 Sign date/Time: 11/03/20 1515 Procedure Note Cari Avina MD - 08/24/2022 [facility] Diagnostic Imaging Department [address] [place], [place] [id number] Patient: CINDY CHAPA /Age/Sex: 1965 - 55 - F Unit#: [id number] Location/Status: [facility] CLI Mnemonic/Ordering Site: [facility] Ordering Physician: ROMEO MONTOYA MD [facility] Screening Digital - 11/03/20 - 1422 EXAM: [facility] Screening Digital EXAM DATE AND TIME: 11/03/2020 2:23 PM HISTORY: Annual screening mammography. Bilateral breast implants. COMPARISON: 06/02/2018 TECHNIQUE: CC and MLO views of both breasts were obtained using fullfield digital mammography. Braden implant displaced views were alsoperformed. Bilateral digital breast tomosynthesis was performed in the MLOprojection. Computer aided detection with the [employer]2-H was employed. TISSUE DENSITY: c. The breasts are heterogeneously dense, which mayobscure small masses. FINDINGS: No suspicious masses, grouped microcalcifications, or areas ofarchitectural distortion are seen. Bilateral breast implants are intact. The rightimplant is unable to be displaced. The skin and vascularity are unremarkable. IMPRESSION: Stable mammographic appearance of the breasts. No evidence of malignancyis seen. Fixed right breast implant. A negative mammogram in the presence of a clinically suspicious palpable abnormality does not preclude the possibility of malignancy or alter the indications for biopsy. BI-RADS: Category 2: Benign RECOMMENDATION(S): 1: Routine screening mammogram BILATERAL in 1 year. 52212, [id number] 3342F, 7025F Dictating Physician: GEOVANNA AVINA MD Electronically Signed by: GEOVANNA AVINA MD Dic Date/Time: 11/03/20 1510 Sign date/Time: 11/03/20 1515 Romeo Montoya MD IMG BI PROCEDURES Final Result from Last 3 Months or Most Recently Relevant to Health Maintenance Insurance [employer] Member Subscriber Plan / Payer (Ef fective 2020-Present) Name:EDUARD, CINDY Relation to Subscriber:Self Name:Cindy Chapa Payer ID:[id number] Group ID:[id number] Type:Not on file Address: [place] [address] [address] [phone] Care Teams Project Management Instructor Relationship Specialty Start Date End Date Lionel Platt MD [address] [place] [id number] PCP - General Internal Medicine 06/21/18
--- OUTSIDE RECORDS SUMMARY | 2025-04-19 12:55 | XMS_ITS | Patient Health Record ---
Author Organization [facility] Address [address] [place] [address] Care Team Providers Care Hand Stoner Name Role Phone ZULEIKASOUMYA Primary Care Provider Allergies Allergen (clinical drug ingredient) Drug/Non Drug Allergy documented on EMR Reaction Allergy Type Onset Date Status valproate Divalproex Sodium Unknown Drug Allergy Active Results Component Value Reference Range Notes XR HAND 3+ VIEWS BILAT Reviewed date:04/15/2025 09:06:36 AM Interpretation: Performing Lab: Notes/Report: Note See Note [facility], a member of [facility] Patient Name: SHANTA CHAPA Date of : 1965 Reason for Exam: Fibromyalgia Exam Date: 04/11/2025 [id number] EST Report Status: Final Ordering Provider: SHANE CARRASCO PCP: ABHIJEET DENT HISTORY: The patient is a 59-year-old female with fibromyalgia and bilateral hand pain. No history of trauma is provided. FINDINGS: AP, latera l, and oblique views of the right wrist, AP, lateral, and oblique views of the left wrist, AP, lateral, and oblique views of the left hand, and AP, lateral, and oblique views of the left hand are obtained. The study demonstrates no fracture, dislocation, arthritic change, or other bony abnormality in the hands and wrists bilaterally. No soft tissue abnormality is seen. IMPRESSION: Normal examination. Code 52261, 21325, 71733, 48960 -------- FINAL REPOR T -------- Dictated By: Gregorio Lee Dictated Date: 04/12/2025 09:33 ET Assigned Physician: Gregorio Lee Reviewed and Electronically Signed By: Gregorio Lee Signed Date: 04/12/2025 09:35 ET Workstation ID: [id number] Transcribed By: Self Edit Transcribed Date: 04/12/2025 09:33 ET C3 COMPLEMENT Reviewed date:04/11/2025 08:38:37 AM Interpretation: Performing Lab: Notes/Report: C3 Complement 126 88-201 mg/dL C4 COMPLEMENT Reviewed date:04/12/2025 08:08:33 AM Interpretation: Performing Lab: Notes/Report: C4 Complement 48 16-47 mg/dL RENAL FUNCTION PANEL Reviewed date:04/12/2025 08:10:57 AM Interpretation: Performing Lab: Notes/Report: Sodium 140 133-145 mmol/L Potassium 3.4 3.5-5.5 mmol/L Chloride 107 96-110 mmol/L CO2 30 21-32 mmol/L Anion Gap 3 3-11 Glucose 108 70-100 mg/dL BUN 11 5-25 mg/dL Creatinine 0.90 0.50-1.10 mg/dL eGFR 74 >=60 mL/min/1.73m2 Calculation based on the Chronic Kidney Disease Epidemiology Collaboration (CKD-EPI) equation refit without adjustment for race. BUN/Creatinine Ratio 12.2 Albumin 3.7 3.2-5.0 g/dL Calcium 9.7 8.5-10.5 mg/dL Phosphorus 3.7 2.5-4.5 mg/dL URINALYSIS WITH REFLEX MICRO SCOPIC Reviewed date:04/10/2025 07:54:12 AM Interpretation: Performing Lab: Notes/Report: Specific [place] Urine >1.045 1.003-1.030 pH, Urine 5.5 5.0-8.0 pH Leukocytes, Urine Negative Negative Nitrite, Urine Negative Negative Protein, Urine 300 <=Trace mg/dL Glucose, Urine Negative Negative mg/dL Ketones, Urine Trace Negative mg/dL Urobilinogen, Urine 1.0 0.2-1.0 mg/dL Bilirubin, Urine Negative Negative Blood, Urine Large Negative RBC, Urine >4000 0-4 /HPF WBC, Urine 40.1 0-4 /HPF Squamous Epithelial, Urine 50 0-60 /LPF Bacteria, Urine Many Negative /HPF Hyaline Casts, Urine 0.0 0-3 /LPF VITAMIN B12 Reviewed date:04/10/2025 07:54:12 AM Interpretation: Performing Lab: Notes/Report: Vitamin B-12 320 250-900 pcg/mL COMPREHENSIVE METABOLIC PANE L Reviewed date:04/10/2025 07:54:12 AM Interpretation: Performing Lab: Notes/Report: Sodium 140 133-145 mmol/L Potassium 3.5 3.5-5.5 mmol/L Chloride 108 96-110 mmol/L CO2 28 21-32 mmol/L Anion Gap 4 3-11 Glucose 105 70-100 mg/dL BUN 11 5-25 mg/dL Creatinine 0.91 0.50-1.10 mg/dL eGFR 73 >=60 mL/min/1.73m2 Calculation based on the Chronic Kidney Disease Epidemiology Collaboration (CKD-EPI) equation refit without adjustment for race. BUN/Creatinine Ratio 12.1 Calcium 9.5 8.5-10.5 mg/dL AST (SGOT) 17 10-42 unit/L ALT (SGPT) 11 10-60 unit/L Alkaline Phosphatase 118 42-121 unit/L Total Protein 7.3 6.0-8.0 g/dL Albumin 3.6 3.2-5.0 g/dL Total Bilirubin 0.3 0.0-1.4 mg/dL LIPID PANEL WITH REFLEX TO D IRECT LDL Reviewed date:04/09/2025 04:49:32 PM Interpretation: Performing Lab: Notes/Report: Cholesterol 190 0-200 mg/dL Triglycerides 122 0-150 mg/dL HDL 77 >=40 mg/dL LDL Calculated 89 0-100 mg/dL Estimated LDL Calculated using equation: Total cholesterol - HDL cholesterol - (Triglycerides/5) VLDL Cholesterol [place] 24.4 Non HDL Chol. (LDL+VLDL) 113 <145 mg/dL Chol/HDL Ratio 2.5 0.0-4.4 XR ANKLE 3+ VIEWS BILAT Reviewed date:04/15/2025 09:06:36 AM Interpretation: Performing Lab: Notes/Report: Note See Note [facility], a member of [employer] Patient Name: SHANTA CHAPA Date of : 1965 Reason for Exam: Fibromyalgia; Bilateral primarry osteoarthritis of knee Exam Date: 04/11/2025 [id number] EST Report Status: Final Ordering Provider: SHANE CARRASCO PCP: ABHIJEET DENT HISTORY: The patient is a 59-year-old female with bilateral ankle pain. No history of trauma is provided. FINDINGS: AP, latera l, and oblique views of the right ankle, along with AP, lateral, and oblique views of the left ankle, are obtained. The study demonstrates no fracture, dislocation, arthritic change, or other bony abnormality in either ankle. No soft tissue abnormality is seen. IMPRESSION: Normal examination. Code 76329, 64497 -------- FINAL REPOR T -------- Dictated By: Gregorio Lee Dictated Date: 04/12/2025 09:09 ET Assigned Physician: Gregorio Lee Reviewed and Electronically Signed By: Gregorio Lee Signed Date: 04/12/2025 09:09 ET Workstation ID: [id number] Transcribed By: Self Edit Transcribed Date: 04/12/2025 09:09 ET XR WRIST 3+ VIEWS BILAT Reviewed date:04/15/2025 09:06:36 AM Interpretation: Performing Lab: Notes/Report: Note See Note [facility], a member of [facility] Patient Name: SHANTA CHAPA Date of : 1965 Reason for Exam: Fibromyalgia Exam Date: 04/11/2025 [id number] EST Report Status: Final Ordering Provider: SHANE CARRASCO PCP: ABHIJEET DENT Please see combined report with radiographs of the hands bilaterally. -------- FINAL REPOR T -------- Dictated By: Gregorio Lee Dictated Date: 04/12/2025 09:33 ET Assigned Physician: Gregorio Lee Reviewed and Electronically Signed By: Gregorio Lee Signed Date: 04/12/2025 09:33 ET Workstation ID: [id number] Transcribed By: Self Edit Transcribed Date: 04/12/2025 09:33 ET XR KNEE 4+ VIEWS BILAT Reviewed date:04/15/2025 09:06:36 AM Interpretation: Performing Lab: Notes/Report: Note See Note [facility], a member of [facility] Patient Name: SHANTA CHAPA Date of : 1965 Reason for Exam: Fibromyalgia; Bilateral primarry osteoarthritis of knee Exam Date: 04/11/2025 [id number] EST Report Status: Final Ordering Provider: SHANE CARRASCO PCP: ABHIJEET DENT HISTORY: The patient is a 59-year-old female [...] or other soft tissue abnormality is seen. IMPRESSION: Normal examination o f the knees. Code 43009, 19226 -------- FINAL REPOR T -------- Dictated By: Gregorio Lee Dictated Date: 04/12/2025 09:31 ET Assigned Physician: Gregorio Lee Reviewed and Electronically Signed By: Gregorio Lee Signed Date: 04/12/2025 09:32 ET Workstation ID: [id number] Transcribed By: Self Edit Transcribed Date: 04/12/2025 09:31 ET ANTI-NEUTROPHILIC CYTOPLASMI C ANTIBODY Reviewed date:04/11/2025 08:38:37 AM Interpretation: Performing Lab: Notes/Report: Myeloperoxidase Ab Negative Negative Myeloperoxidase Ab, Quant 0 <=20 units Proteinase-3 Ab Negative Negative Proteinase-3 Ab Quant 5 <=20 units PROTEIN AND CREATININE WITH RATIO, URINE Reviewed date:04/12/2025 08:09:10 AM Interpretation: Performing Lab: Notes/Report: Protein, Urine 189 Prot/Creat, Ur 0.65 <=0.20 mg/mg creat Creatinine, Urine 293.0 MICROALBUMIN CREATININE URIN E RATIO Reviewed date:04/10/2025 07:54:12 AM Interpretation: Performing Lab: Notes/Report: Creatinine, Urine 293.0 Microalb, Ur 958.0 0.0-29.0 mg/L Microalb/Creat Ratio 327 <30 mg/g creat HEMOGLOBIN A1C Reviewed date:04/10/2025 07:54:12 AM Interpretation: Performing Lab: Notes/Report: Hemoglobin A1C 5.7 <6.5 % Mean Bld Glu Estim. 117 THYROID STIMULATING HORMONE Reviewed date:04/10/2025 07:54:12 AM Interpretation: Performing Lab: Notes/Report: TSH 0.55 0.40-4.00 mcIU/mL CBC WITH AUTO DIFFERENTIAL Reviewed date:04/09/2025 04:42:43 PM Interpretation: Performing Lab: Notes/Report: WBC 6.7 4.8-10.8 K/mcL RBC 4.60 3.80-4.80 M/mcL Hemoglobin 11.7 11.5-16.0 g/dL Hematocrit 39.5 35.0-47.0 % MCV 85.1 79.0-98.0 FL MCH 25.2 27.0-32.0 pcg MCHC 29.6 32.0-37.0 g/dL RDW 14.2 11.0-15.0 % Platelets 461 130-400 K/mcL MPV 8.6 7.0-11.0 FL NRBC 0.0 <1.0 % NRBC Absolute 0.00 <0.10 K/mcL Neutrophils Relative 60.8 Lymphocytes Relative 25.4 Monocytes Relative 10.3 Eosinophils Relative 2.7 Basophils Relative 0.7 Immature Granulocytes Relative 0.1 Neutrophils Absolute 4.06 1.50-7.00 K/mcL Lymphocytes Absolute 1.70 1.00-5.00 K/mcL Monocytes Absolute 0.69 0.20-1.00 K/mcL Eosinophils Absolute 0.18 0.00-0.50 K/mcL Basophils Absolute 0.05 0.00-0.20 K/mcL Immature Granulocytes Absolute 0.01 0.00-0.03 K/mcL TSH Reviewed date:11/23/2024 08:03:57 AM Interpretation: Performing Lab:[facility], [facility] Nicky Love Notes/Report: FASTING:YES FASTING: YES TSH 1.38 0.40-4.50 mIU/L T4 (THYROXINE), TOTAL Reviewed date:11/23/2024 08:41:17 AM Interpretation: Performing Lab:[facility] Nicky Love Notes/Report: FASTING:YES FASTING: YES T4 (THYROXINE), TOTAL 8.3 5.1-11.9 mcg/dL CBC (INCLUDES DIFF/PLT) Reviewed date:11/23/2024 08:03:57 AM Interpretation: Performing Lab:[facility] Nicky Love Notes/Report: FASTING:YES FASTING: YES WHITE BLOOD CELL COUNT 8.4 3.8-10.8 Thousand/uL RED BLOOD CELL COUNT 4.47 3.80-5.10 Million/uL HEMOGLOBIN 12.5 11.7-15.5 g/dL HEMATOCRIT 40.4 35.0-45.0 % MCV 90.4 80.0-100.0 fL MCH 28.0 27.0-33.0 pg MCHC 30.9 32.0-36.0 g/dL For adults, a slight decrease in the calculated MCHC value (in the range of 30 to 32 g/dL) is most likely not clinically significant; however, it should be interpreted with caution in correlation with other red cell parameters and the patient's clinical condition. RDW 12.2 11.0-15.0 % PLATELET COUNT 423 140-400 Thousand/uL MPV 9.2 7.5-12.5 fL ABSOLUTE NEUTROPHILS 4780 1868-0665 cells/uL ABSOLUTE LYMPHOCYTES 2537 850-3900 cells/uL ABSOLUTE MONOCYTES 647 200-950 cells/uL ABSOLUTE EOSINOPHILS 370 15-500 cells/uL ABSOLUTE BASOPHILS 67 0-200 cells/uL NEUTROPHILS 56.9 LYMPHOCYTES 30.2 MONOCYTES 7.7 EOSINOPHILS 4.4 BASOPHILS 0.8 COMPREHENSIVE METABOLIC PANE L Reviewed date:11/23/2024 08:41:17 AM Interpretation: Performing Lab:NL2, [facility] [address] [place], [place] [id number] Nicky Love Notes/Report: FASTING:YES FASTING: YES GLUCOSE 116 65-99 mg/dL Fasting reference interval For someone without known diabetes, a glucose value between 100 and 125 mg/dL is consistent with prediabetes and should be confirmed with a follow-up test. UREA NITROGEN (BUN) 10 7-25 mg/dL CREATININE 0.88 0.50-1.03 mg/dL EGFR 76 > OR = 60 mL/min/1.73m2 BUN/CREATININE RATIO SEE NOTE: 6-22 (calc) Not Reported: BUN and Creatinine are within reference range. SODIUM 141 135-146 mmol/L POTASSIUM 3.5 3.5-5.3 mmol/L CHLORIDE 102 98-110 mmol/L CARBON DIOXIDE 30 20-32 mmol/L CALCIUM 9.3 8.6-10.4 mg/dL PROTEIN, TOTAL 7.1 6.1-8.1 g/dL ALBUMIN 4.1 3.6-5.1 g/dL GLOBULIN 3.0 1.9-3.7 g/dL (calc) ALBUMIN/GLOBULIN RATIO 1.4 1.0-2.5 (calc) BILIRUBIN, TOTAL 0.2 0.2-1.2 mg/dL ALKALINE PHOSPHATASE 85 37-153 U/L AST 11 10-35 U/L ALT 6 6-29 U/L TSH Reviewed date:06/07/2024 12:48:10 PM Interpretation: Performing Lab: Notes/Report: [employer], [place] [address] Power Generation Engineer - Jenifer Galvan MD TSH 0.34 0.40-4.00 uIU/ml VITAMIN D, 25-HYDROXY Reviewed date:06/07/2024 12:48:10 PM Interpretation: Performing Lab: Notes/Report: VITAMIN D, 25-HYDROXY 40 30-80 ng/mL LIPID PROFILE Reviewed date:06/07/2024 12:48:10 PM Interpretation: Performing Lab: Notes/Report: CHOLESTEROL 203 0-200 mg/dL TRIGLYCERIDES 180 0-150 mg/dL HDL CHOLESTEROL 63 >40 mg/dL LDL CALCULATED 104 0-100 mg/dL TC-HDLC RATIO 3.2 0-4.4 mg/dL CBC WITH AUTO DIFF Reviewed date:06/07/2024 07:57:07 AM Interpretation: Performing Lab: Notes/Report: Original Ordering Provider: SOUMYA TO NP [employer], a member of [address] [address] [employer] Generation Engineer - Jenifer Galvan MD WBC 8.1 4.8-10.8 x10-3/uL RBC 5.0 3.8-4.8 [...] x10-3/uL IMMATURE GRANULOCYTES # 0.04 0-0.03 x10-3/uL COMPREHENSIVE METABOLIC PANE L Reviewed date:06/07/2024 12:48:10 [...] 10-60 U/L ALK PHOS 96 42-121 U/L GLYCOHEMOGLOBIN PROFILE Reviewed date:06/07/2024 07:57:07 AM Interpretation: Performing Lab: Notes/Report: Power Generation Engineer - Jenifer Galvan MD [address] [place] [address] [employer] Original Ordering Provider: SOUMYA TO NP GLYCATED HEMOGLOBIN A1C 5.7 <6.5 % ESTIMATED AVERAGE GLUCOSE 117 URINALYSIS Reviewed date:06/07/2024 10:15:59 AM Interpretation: Performing Lab: Notes/Report: RETURN ANOTHER TIME - 06/06/24--SHL Testing not performed Reason: PATIENT UNABLE TO VOID Note Original Ordering Provider: SOUMYA TO NP [employer] [address] Power Generation Engineer - Jenifer Galvan MD GLUCOSE, (UA) TNP NEGATIVE mg/dL Testing not performed Reason: PATIENT UNABLE TO VOID Note Original Ordering Provider: SOUMYA TO NP [employer] [address] Power Generation Engineer - Jenifer Galvan MD RBC, URINE TNP 0-4 /HPF TOTAL T4 Reviewed date:06/07/2024 12:48:10 PM Interpretation: Performing Lab: Notes/Report: TOTAL T4 8.2 4.5-10.9 ug/dl Reason For Referral Reason Pt needing referral to ENT Diagnosis 1 Deviated nasal septu m (J34.2) Diagnosis 2 Chronic sinusitis, u nspecified (J32.9) Diagnosis 3 Seasonal allergies ( J30.2) Referral Organization [facility] [address] Referring Provider First Name SOUMYA Referring Provider Last Name ZULEIKA Referring Provider Speciality Internal M edicine Referred Provider Specialty Ear, nose an d throat surgeon General Notes [facility], [address] [place] [address], [address], [place] [address], , fax Clinical Notes Dorothy Higuera 05/04 11:51:27 AM >, Rasta Christopher 05/15/2024 04:22:16 PM > The patient is scheduled for an appointment on 07/31/2024 at 2:[address] Ollie Villa at the [facility]. I called the patient and left a detailed voicemail Referral Priority Urgent Reason Dr. jauregui @ [facility] umatology Diagnosis 1 Primary osteoarthrit is, unspecified site (M19.91) Diagnosis 2 Fibromyalgia (M79.7) Referral Organization [facility] [address] Referring Provider First Name SOUMYA Referring Provider Last Name ZULEIKA Referring Provider Speciality Internal M edicine Referred Provider Specialty Rheumatology General Notes Aydee Garcias 06/06/2024 03:47:25 PM > Referral with attachment faxed to Dr. Jauregui @ [facility] Rheumatology. p: [phone] f: [phone]. Pt given number to call and schedule visit. Clinical Notes Rasta Christopher 03/2024 08:46:37 AM > Office confirmed receipt of referral. I called the patient and informed her that she can call directly to schedule an appointment with them, Rasta Christopher 06/14/2024 11:38:08 AM > Scheduled for 08/14 at 8 am. Pt aware Referral Priority Routine Reason DEMOS Diagnosis 1 Skin lesion (L98.9) Referral Organization [facility] [address] Referring Provider First Name SOUMYA Referring Provider Last Name ZULEIKA Referring Provider Speciality Internal M edicine Referred Provider Specialty Dermatology General Notes QureshiAlicia 02/2025 09:15:45 AM > Pt given phone faxed to [phone] Referral Priority Routine Medications Medication SIG (Take, Route, Frequency, Duration) Notes Start Date End Date Status tiZANidine HCl 2 MG 1 tablet as needed p rn spasm Orally Three times a day; Duration: 10 days Active Omeprazole 40 MG TAKE 1 CAPSULE BY MO UTH EVERY DAY; Duration: 90 Active Ipratropium-Albuterol 0.5-2.5 (3) MG/3ML INHALE 3 ML (1 VIAL) VIA NEBULIZER EVERY 6 HOURS FOR 30 DAYS; Duration: 30 Active Senna-Time 8.6 MG TAKE 2 TABLETS BY MO UTH AT BEDTIME NEEDED FOR 30 DAYS; Duration: 30 Active Oyster Shell Calcium 500 MG TAKE 1 TABLET BY MOUTH TWICE A DAY WITH MEALS FOR 30 DAYS; Duration: 90 Active Lidocaine 5 % APPLY 1 PATCH DAILY EXTERNALLY AND REMOVE AFTER 12 HOURS FOR 30 DAYS.; Duration: 60 Active Vitamin D 50 MCG (2000 UT) TAKE 1 TABLET BY MOUTH EVERY DAY FOR 30 DAYS; Duration: 30 Active buPROPion HCl ER (SR) 150 MG TAKE 1 TABLET BY MOUTH TWICE DAILY; Duration: 90 Active Rizatriptan Benzoate 10 MG 1 tablet prn migraine headaches, may repeat x 1 2 hrs after Orally Once a day; Duration: 30 days 02/05/2025 Active Effexor XR 150 MG 1 capsule with food Orally Once a day Active Breo Ellipta 100-25 MCG/INH 1 puff Inhalation Once a day; Duration: 90 days 03/29/2018 Active Comp Air Compressor Nebulizer - DIRECTED PRN DX ASTHMA TUBING AND MASK AND MACHIEN 30 DAYS Active Effexor XR 75 MG 1 capsule with food Orally Once a day Active cloNIDine HCl 0.1 MG TAKE 1 TABLET ORALL Y THREE TIMES A DAY 90 DAYS; Duration: 90 Active traMADol HCl 50 MG 1 tablet as needed Orally Once a day Active Restasis 0.05 % 1 drop into affected eye Ophthalmic Twice a day Active Divalproex Sodium ER 500 MG 2 tablet Orally Once a day Active oxyCODONE HCl 5 MG 1 tablet as needed Orally every 12 hours; Duration: 30 days Active Lidocaine 5 % 1 patch remove after 12 hours Externally Once a day; Duration: 30 days Active Gabapentin 300 MG 1 capsule Orally twi ce a day; Duration: 30 days Active Levaquin 750 MG 1 tablet Orally Once a day; Duration: 5 days 02/08/2023 Not-Taking traZODone HCl 100 MG 1 tablet at bedtime Orally Once a day; Duration: 30 days Active Fluticasone Propionate 50 MCG/ACT SPRAY 1 SPRAY INTO EACH NOSTRIL EVERY DAY FOR 30 DAYS; Duration: 90 Active Albuterol Sulfate HFA 108 (90 Base) MCG/ACT INHALE 2 PUFFS BY MOUTH 4 TIMES A DAY NEEDED FOR FOR SHORTNESS OF BREATH EVERY 6 HRS Active buPROPion HCl ER (SR) 150 MG 1 tablet in the morning Orally Once a day; Duration: 90 days Active ZyrTEC Allergy 10 MG 1 tablet Orally Onc e a day; Duration: 90 days Active clonazePAM 0.5 MG 1 tablet at bedtime Orally twice a day; Duration: 30 days Active Ventolin HFA 108 (90 Base) MCG/ACT INHALE 2 PUFFS BY MOUTH 4TIMES A DAY NEEDED for SOB Inhalation every 6 hrs; Duration: 25 Active Immunizations Vaccine Route Administration Date Status Comme nts influenza IM Intramuscular 08/08/2018 Administered influenza IM Intramuscular 07/08/2020 Administered influenza IM Intramuscular 06/02/2023 Administered Influenza, seasonal, injectable, preservative free, 3 yrs and above IM Intramuscular 10/30/2019 Administered Social History Tobacco Use: Social History Observation Description Date Details (start date - stop date) Current Smoker NA - NA Tobacco Use/Smoking Question Answer Notes Are you a current smoker Problems Problem Type SNOMED Code ICD Code Onset Dates Problem Status W/U Status Risk Notes Problem Asthma (disorder) (826153875) Asthma, unspecified, unspecified status (493.90) Active confirmed Problem Vitamin D deficiency (54331171) Vitamin D deficiency, unspecified (E55.9) Active confirmed Problem Hyperlipidemia (14444579) Hyperlipidemia, unspecified (E78.5) Active confirmed Problem Dehydration (23741202) Dehydration (E86.0) Active confirmed Problem Cocaine abuse (71187710) Cocaine abuse, uncomplicated (F14.10) Active confirmed Problem Cocaine dependence with withdrawal (F14.23) Active confirmed Problem Tobacco user (515828772) Nicotine dependence, cigarettes, uncomplicated (F17.210) Active confirmed Problem Insomnia (671706676) Insomnia due to medical condition (G47.01) Active confirmed Problem Chronic pain syndrome (779714212) Chronic pain syndrome (G89.4) Active confirmed Problem Chronic sinusitis (08456204) Chronic sinusitis, unspecified (J32.9) Active confirmed Problem Deviated nasal septum (951671833) Deviated nasal septum (J34.2) Active confirmed Problem Uncomplicated asthma (disorder) (418718550) Unspecified asthma, uncomplicated (J45.909) Active confirmed Problem Primary generalised osteoarthritis (831550534) Primary osteoarthritis, unspecified site (M19.91) Active confirmed Problem Fibromyalgia (405769674) Fibromyalgia (M79.7) Active confirmed Problem 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) Active confirmed Problem Dysphagia (54704620) Dysphagia, unspecified (R13.10) Active confirmed Problem Encounter for observation for suspected toxic effect from ingested substance ruled out (Z03.6) Active confirmed Problem Screening for malignant neoplasm of skin (888720893) Encounter for screening for malignant neoplasm of skin (Z12.83) Active confirmed Problem Lipid screening (107605610) Encounter for screening for lipoid disorders (Z13.220) Active confirmed Problem Unsteady gait (15204884) Unsteady gait (R26.81) Active confirmed Problem Carpal tunnel syndrome of right wrist (496440282807770) Carpal tunnel syndrome of right wrist (G56.01) Active confirmed Problem Acquired hypothyroidism (722952394) Acquired hypothyroidism (E03.9) Active confirmed Problem Adult health examination (527735937) Adult general medical exam (Z00.00) Active confirmed Problem Sleep apnea (65939911) Sleep apnea, unspecified type (G47.30) Active confirmed Problem Depressive disorder (disorder) (54959738) Depression, unspecified depression type (F32.9) Active confirmed Problem Seasonal allergy (976739075) Seasonal allergies (J30.2) Active confirmed Problem Diabetes mellitus screening (838079804) Diabetes mellitus screening (Z13.1) Active confirmed Problem Constipation (36173375) Constipation, unspecified constipation type (K59.00) Active confirmed Problem Annual health maintenance examination (79473923) Encounter for annual health examination (Z00.00) Active confirmed Problem Skin lesion (67203069) Skin lesion (L98.9) Active confirmed Problem Mild intermittent asthma (067078919) Mild intermittent asthma without complication (J45.20) Active confirmed Problem Vitamin B>12< deficiency anaemia (13159937) Anemia due to vitamin B12 deficiency, unspecified B12 deficiency type (D51.9) Active confirmed Problem Primary hypertension (88622658) Primary hypertension (I10) Active confirmed Problem Mental disorder caused by drug (932963736) Nicotine dependence with nicotine-induced disorder, unspecified nicotine product type (F17.209) Active confirmed Problem Endocrine/metabol ic screening (135240013) Encounter for screening for endocrine disorder (Z13.29) Active confirmed Problem Abnormal metabolic state due to diabetes mellitus (493727192) Abnormal metabolic state due to diabetes mellitus (E11.9) Active confirmed Vital Signs Heart Rate 88 /min 02/05/2025 Oximetry 99 % 10/08/2024 Blood pressure diastolic 84 mm Hg 02/05/2025 Height 63 in 02/05/2025 Blood pressure systolic 130 mm Hg 02/05/2025 Weight 127 lbs 02/05/2025 BMI 22.49 kg/m2 02/05/2025 Encounters Encounter Location Date Provider Diagnosis [facility] [address] [place] [id number] 06/06/2024 SOUMYA TO Annual physical exam Z00.00 ; Encounter for screening for depression Z13.31 ; Encounter for screening for other disorder Z13.89 ; Primary hypertension I10 ; Fibromyalgia M79.7 ; Depression, unspecified depression type F32.9 ; Nicotine dependence with nicotine-induced disorder, unspecified nicotine product type F17.209 ; Mild intermittent asthma without complication J45.20 ; Seasonal allergies J30.2 and Primary osteoarthritis, unspecified site M19.91 [facility] [address] [address] 10/08/2024 SOUMYA BORHOT Primary hypertension I10 ; Fibromyalgia M79.7 ; Depression, unspecified depression type F32.9 ; Nicotine dependence with nicotine-induced disorder, unspecified nicotine product type F17.209 ; Mild intermittent asthma without complication J45.20 ; Seasonal allergies J30.2 and Acquired hypothyroidism E03.9 [facility] [address] [address] 02/05/2025 [place] Primary hypertension I10 ; Fibromyalgia M79.7 ; Depression, unspecified depression type F32.9 ; Nicotine dependence with nicotine-induced disorder, unspecified nicotine product type F17.209 ; Mild intermittent asthma without complication J45.20 ; Seasonal allergies J30.2 ; Acquired hypothyroidism E03.9 ; Encounter for examination of blood pressure without abnormal findings Z01.30 and Skin lesion L98.9 [facility] [address] 04/23/2024 [place] [facility] [address] 05/04/2024 [place] [facility] [address] 05/09/2024 [place] [facility] [address] 05/16/2024 [place] [facility] [address] 06/07/2024 [place] Hyperlipidemia, unspecified E78.5 and Acquired hypothyroidism E03.9 [facility] [address] 06/15/2024 [place] [facility] [address] 06/27/2024 [place] [facility] [address] [place] [address] 08/27/2024 [place] [facility] [address] 08/28/2024 [place] [facility] [address] [facility] [address] [place] [address] 11/07/2024 [place] [facility] [address] [facility] [address] [place] [address] 02/08/2025 [place] [facility] [address] [facility] [address] [place] [address] 10/07/2024 [place] [facility] [address] [facility] [address] [place] [address] 10/07/2024 [place] Primary hypertension I10 ; Low back pain, unspecified M54.50 ; Seasonal allergies J30.2 and Annual physical exam Z00.00 [facility] [address] [facility] [address] [place], [place] 10/09/2024 [place] Primary hypertension I10 [facility] [address] 10/09/2024 [place] [facility] [address] 10/09/2024 [place] Primary hypertension I10 Assessments Encounter Date Diagnosis (ICD Code) Assessment Notes Treatment Notes Treatment Clinical Notes Section Notes 06/06/2024 Encounter for screening for depression (ICD-10 [...] software and direct typing Please excuse inadvertent sheet folder or typing errors, or uncorrected word substitutions Although every attempt has been made by the provider to proofread this document, occasional misspellings and typographical errors may still be present Due to the previous pandemic, and the use of personal protective equipment (PPE) This may decrease voice recognition accuracy Inadvertent sheet folder errors may occur 06/06/2024 Annual physical exam [...] software and direct typing Please excuse inadvertent sheet folder or typing errors, or uncorrected word substitutions Although every attempt has been made by the provider to proofread this document, occasional misspellings and typographical errors may still be present Due to the previous pandemic, and the use of personal protective equipment (PPE) This may decrease voice recognition accuracy Inadvertent sheet folder errors may occur 06/07/2024 Hyperlipidemia, unspecified (ICD-10 - E78.5) 10/07/2024 Primary hypertension (ICD-10 - I10) 10/08/2024 Primary hypertension (ICD-10 - I10) Acute Concerns/Problem List: 10/08/2024 Request ENT notes _update labs Discussed the importance of following up on mammography and colorectal screening Of note, some information is being carried forward from prior records for informational purposes only and is being cited so that efficiency, safety and quality of the patient's care is not compromised This note was prepared using voice recognition software and direct typing Please excuse inadvertent sheet folder or typing errors, or uncorrected word substitutions Although every attempt has been made by the provider to proofread this document, occasional misspellings and typographical errors may still be present Due to the previous pandemic, and the use of personal protective equipment (PPE) This may decrease voice recognition accuracy Inadvertent sheet folder errors may occur 10/09/2024 Primary hypertension (ICD-10 - I10) 10/09/2024 Primary hypertension (ICD-10 - I10) 02/05/2025 Primary hypertension (ICD-10 - I10) Acute Concerns/Problem List: 02/05/2025 Discussed the importance of following up on mammography and colorectal screening. Sent Rizatriptan to [facility]. Sent a referral to dermatology for skin lesion. Will see her back in the fall for Medicare visit with labs Of note, some information is being carried forward from prior records for informational purposes only and is being cited so that efficiency, safety and quality of the patient's care is not compromised This note was prepared using voice recognition software and direct typing Please excuse inadvertent sheet folder or typing errors, or uncorrected word substitutions Although every attempt has been made by the provider to proofread this document, occasional misspellings and typographical errors may still be present Due to the previous pandemic, and the use of personal protective equipment (PPE) This may decrease voice recognition accuracy Inadvertent sheet folder errors may occur 02/05/2025 Fibromyalgia (ICD-10 - M79.7) Acute Concerns/Problem List: 02/05/2025 Discussed the importance of following up on mammography and colorectal screening. Sent Rizatriptan to [facility]. Sent a referral to dermatology for skin lesion. Will see her back in the fall for Medicare visit with labs Of note, some information is being carried forward from prior records for informational purposes only and is being cited so that efficiency, safety and quality of the patient's care is not compromised This note was prepared using voice recognition software and direct typing Please excuse inadvertent sheet folder or typing errors, or uncorrected word substitutions Although every attempt has been made by the provider to proofread this document, occasional misspellings and typographical errors may still be present Due to the previous pandemic, and the use of personal protective equipment (PPE) This may decrease voice recognition accuracy Inadvertent sheet folder errors may occur 10/07/2024 Low back pain, unspecified (ICD-10 - M54.50) 10/08/2024 Fibromyalgia (ICD-10 - M79.7) Acute Concerns/Problem List: 10/08/2024 Request ENT notes _update labs Discussed the importance of following up on mammography and colorectal screening Of note, some information is being carried forward from prior records for informational purposes only and is being cited so that efficiency, safety and quality of the patient's care is not compromised This note was prepared using voice recognition software and direct typing Please excuse inadvertent sheet folder or typing errors, or uncorrected word substitutions Although every attempt has been made by the provider to proofread this document, occasional misspellings and typographical errors may still be present Due to the previous pandemic, and the use of personal protective equipment (PPE) This may decrease voice recognition accuracy Inadvertent sheet folder errors may occur 06/07/2024 Acquired hypothyroidism (ICD-10 - E03.9) 06/06/2024 Encounter for screening for other disorder [...] software and direct typing Please excuse inadvertent sheet folder or typing errors, or uncorrected word substitutions Although every attempt has been made by the provider to proofread this document, occasional misspellings and typographical errors may still be present Due to the previous pandemic, and the use of personal protective equipment (PPE) This may decrease voice recognition accuracy Inadvertent sheet folder errors may occur 10/07/2024 Seasonal allergies (ICD-10 - J30.2) 06/06/2024 Primary hypertension (ICD-10 - I10) Acute [...] software and direct typing Please excuse inadvertent sheet folder or typing errors, or uncorrected word substitutions Although every attempt has been made by the provider to proofread this document, occasional misspellings and typographical errors may still be present Due to the previous pandemic, and the use of personal protective equipment (PPE) This may decrease voice recognition accuracy Inadvertent sheet folder errors may occur 10/08/2024 Depression, unspecified depression type (ICD-10 - F32.9) Acute Concerns/Problem List: 10/08/2024 Request ENT notes _update labs Discussed the importance of following up on mammography and colorectal screening Of note, some information is being carried forward from prior records for informational purposes only and is being cited so that efficiency, safety and quality of the patient's care is not compromised This note was prepared using voice recognition software and direct typing Please excuse inadvertent sheet folder or typing errors, or uncorrected word substitutions Although every attempt has been made by the provider to proofread this document, occasional misspellings and typographical errors may still be present Due to the previous pandemic, and the use of personal protective equipment (PPE) This may decrease voice recognition accuracy Inadvertent sheet folder errors may occur 02/05/2025 Depression, unspecified depression type (ICD-10 - F32.9) Acute Concerns/Problem List: 02/05/2025 Discussed the importance of following up on mammography and colorectal screening. Sent Rizatriptan to [facility]. Sent a referral to dermatology for skin lesion. Will see her back in the fall for Medicare visit with labs Of note, some information is being carried forward from prior records for informational purposes only and is being cited so that efficiency, safety and quality of the patient's care is not compromised This note was prepared using voice recognition software and direct typing Please excuse inadvertent sheet folder or typing errors, or uncorrected word substitutions Although every attempt has been made by the provider to proofread this document, occasional misspellings and typographical errors may still be present Due to the previous pandemic, and the use of personal protective equipment (PPE) This may decrease voice recognition accuracy Inadvertent sheet folder errors may occur 02/05/2025 Nicotine dependence with nicotine-induced disorder, unspecified nicotine product type (ICD-10 - F17.209) Acute Concerns/Problem List: 02/05/2025 Discussed the importance of following up on mammography and colorectal screening. Sent Rizatriptan to [facility]. Sent a referral to dermatology for skin lesion. Will see her back in the fall for Medicare visit with labs Of note, some information is being carried forward from prior records for informational purposes only and is being cited so that efficiency, safety and quality of the patient's care is not compromised This note was prepared using voice recognition software and direct typing Please excuse inadvertent sheet folder or typing errors, or uncorrected word substitutions Although every attempt has been made by the provider to proofread this document, occasional misspellings and typographical errors may still be present Due to the previous pandemic, and the use of personal protective equipment (PPE) This may decrease voice recognition accuracy Inadvertent sheet folder errors may occur 10/08/2024 Nicotine dependence with nicotine-induced disorder, unspecified nicotine product type (ICD-10 - F17.209) Acute Concerns/Problem List: 10/08/2024 Request ENT notes _update labs Discussed the importance of following up on mammography and colorectal screening Of note, some information is being carried forward from prior records for informational purposes only and is being cited so that efficiency, safety and quality of the patient's care is not compromised This note was prepared using voice recognition software and direct typing Please excuse inadvertent sheet folder or typing errors, or uncorrected word substitutions Although every attempt has been made by the provider to proofread this document, occasional misspellings and typographical errors may still be present Due to the previous pandemic, and the use of personal protective equipment (PPE) This may decrease voice recognition accuracy Inadvertent sheet folder errors may occur 10/07/2024 Annual physical exam (ICD-10 - Z00.00) 06/06/2024 Fibromyalgia (ICD-10 - M79.7) Acute Concerns/Problem [...] software and direct typing Please excuse inadvertent sheet folder or typing errors, or uncorrected word substitutions Although every attempt has been made by the provider to proofread this document, occasional misspellings and typographical errors may still be present Due to the previous pandemic, and the use of personal protective equipment (PPE) This may decrease voice recognition accuracy Inadvertent sheet folder errors may occur 06/06/2024 Depression, unspecified depression [...] software and direct typing Please excuse inadvertent sheet folder or typing errors, or uncorrected word substitutions Although every attempt has been made by the provider to proofread this document, occasional misspellings and typographical errors may still be present Due to the previous pandemic, and the use of personal protective equipment (PPE) This may decrease voice recognition accuracy Inadvertent sheet folder errors may occur 02/05/2025 Mild intermittent asthma without complication (ICD-10 - J45.20) Acute Concerns/Problem List: 02/05/2025 Discussed the importance of following up on mammography and colorectal screening. [facility] Sent a referral to dermatology for skin lesion. Will see her back in the fall for Medicare visit with labs Of note, some information is being carried forward from prior records for informational purposes only and is being cited so that efficiency, safety and quality of the patient's care is not compromised This note was prepared using voice recognition software and direct typing Please excuse inadvertent sheet folder or typing errors, or uncorrected word substitutions Although every attempt has been made by the provider to proofread this document, occasional misspellings and typographical errors may still be present Due to the previous pandemic, and the use of personal protective equipment (PPE) This may decrease voice recognition accuracy Inadvertent sheet folder errors may occur 10/08/2024 Mild intermittent asthma without complication (ICD-10 - J45.20) Acute Concerns/Problem List: 10/08/2024 Request ENT notes _update labs Discussed the importance of following up on mammography and colorectal screening Of note, some information is being carried forward from prior records for informational purposes only and is being cited so that efficiency, safety and quality of the patient's care is not compromised This note was prepared using voice recognition software and direct typing Please excuse inadvertent sheet folder or typing errors, or uncorrected word substitutions Although every attempt has been made by the provider to proofread this document, occasional misspellings and typographical errors may still be present Due to the previous pandemic, and the use of personal protective equipment (PPE) This may decrease voice recognition accuracy Inadvertent sheet folder errors may occur 02/05/2025 Seasonal allergies (ICD-10 - J30.2) Acute Concerns/Problem List: 02/05/2025 Discussed the importance of following up on mammography and colorectal screening. Sent Rizatriptan to [facility]. Sent a referral to dermatology for skin lesion. Will see her back in the fall for Medicare visit with labs Of note, some information is being carried forward from prior records for informational purposes only and is being cited so that efficiency, safety and quality of the patient's care is not compromised This note was prepared using voice recognition software and direct typing Please excuse inadvertent sheet folder or typing errors, or uncorrected word substitutions Although every attempt has been made by the provider to proofread this document, occasional misspellings and typographical errors may still be present Due to the previous pandemic, and the use of personal protective equipment (PPE) This may decrease voice recognition accuracy Inadvertent sheet folder errors may occur 06/06/2024 Nicotine dependence with [...] software and direct typing Please excuse inadvertent sheet folder or typing errors, or uncorrected word substitutions Although every attempt has been made by the provider to proofread this document, occasional misspellings and typographical errors may still be present Due to the previous pandemic, and the use of personal protective equipment (PPE) This may decrease voice recognition accuracy Inadvertent sheet folder errors may occur 10/08/2024 Seasonal allergies (ICD-10 - J30.2) Acute Concerns/Problem List: 10/08/2024 Request ENT notes _update labs Discussed the importance of following up on mammography and colorectal screening Of note, some information is being carried forward from prior records for informational purposes only and is being cited so that efficiency, safety and quality of the patient's care is not compromised This note was prepared using voice recognition software and direct typing Please excuse inadvertent sheet folder or typing errors, or uncorrected word substitutions Although every attempt has been made by the provider to proofread this document, occasional misspellings and typographical errors may still be present Due to the previous pandemic, and the use of personal protective equipment (PPE) This may decrease voice recognition accuracy Inadvertent sheet folder errors may occur 10/08/2024 Acquired hypothyroidism (ICD-10 - E03.9) Acute Concerns/Problem List: 10/08/2024 Request ENT notes _update labs Discussed the importance of following up on mammography and colorectal screening Of note, some information is being carried forward from prior records for informational purposes only and is being cited so that efficiency, safety and quality of the patient's care is not compromised This note was prepared using voice recognition software and direct typing Please excuse inadvertent sheet folder or typing errors, or uncorrected word substitutions Although every attempt has been made by the provider to proofread this document, occasional misspellings and typographical errors may still be present Due to the previous pandemic, and the use of personal protective equipment (PPE) This may decrease voice recognition accuracy Inadvertent sheet folder errors may occur 06/06/2024 Mild intermittent asthma [...] software and direct typing Please excuse inadvertent sheet folder or typing errors, or uncorrected word substitutions Although every attempt has been made by the provider to proofread this document, occasional misspellings and typographical errors may still be present Due to the previous pandemic, and the use of personal protective equipment (PPE) This may decrease voice recognition accuracy Inadvertent sheet folder errors may occur 02/05/2025 Acquired hypothyroidism (ICD-10 - E03.9) Acute Concerns/Problem List: 02/05/2025 Discussed the importance of following up on mammography and colorectal screening. Sent Rizatriptan to [facility]. Sent a referral to dermatology for skin lesion. Will see her back in the fall for Medicare visit with labs Of note, some information is being carried forward from prior records for informational purposes only and is being cited so that efficiency, safety and quality of the patient's care is not compromised This note was prepared using voice recognition software and direct typing Please excuse inadvertent sheet folder or typing errors, or uncorrected word substitutions Although every attempt has been made by the provider to proofread this document, occasional misspellings and typographical errors may still be present Due to the previous pandemic, and the use of personal protective equipment (PPE) This may decrease voice recognition accuracy Inadvertent sheet folder errors may occur 02/05/2025 Encounter for examination of blood pressure without abnormal findings (ICD-10 - Z01.30) Acute Concerns/Problem List: 02/05/2025 Discussed the importance of following up on mammography and colorectal screening. Sent Rizatriptan to [facility]. Sent a referral to dermatology for skin lesion. Will see her back in the fall for Medicare visit with labs Of note, some information is being carried forward from prior records for informational purposes only and is being cited so that efficiency, safety and quality of the patient's care is not compromised This note was prepared using voice recognition software and direct typing Please excuse inadvertent sheet folder or typing errors, or uncorrected word substitutions Although every attempt has been made by the provider to proofread this document, occasional misspellings and typographical errors may still be present Due to the previous pandemic, and the use of personal protective equipment (PPE) This may decrease voice recognition accuracy Inadvertent sheet folder errors may occur 06/06/2024 Seasonal allergies (ICD-10 [...] software and direct typing Please excuse inadvertent sheet folder or typing errors, or uncorrected word substitutions Although every attempt has been made by the provider to proofread this document, occasional misspellings and typographical errors may still be present Due to the previous pandemic, and the use of personal protective equipment (PPE) This may decrease voice recognition accuracy Inadvertent sheet folder errors may occur 06/06/2024 Primary osteoarthritis, unspecified [...] software and direct typing Please excuse inadvertent sheet folder or typing errors, or uncorrected word substitutions Although every attempt has been made by the provider to proofread this document, occasional misspellings and typographical errors may still be present Due to the previous pandemic, and the use of personal protective equipment (PPE) This may decrease voice recognition accuracy Inadvertent sheet folder errors may occur 02/05/2025 Skin lesion (ICD-10 - L98.9) Acute Concerns/Problem List: 02/05/2025 Discussed the importance of following up on mammography and colorectal screening. Sent Rizatriptan to [facility]. Sent a referral to dermatology for skin lesion. Will see her back in the fall for Medicare visit with labs Of note, some information is being carried forward from prior records for informational purposes only and is being cited so that efficiency, safety and quality of the patient's care is not compromised This note was prepared using voice recognition software and direct typing Please excuse inadvertent sheet folder or typing errors, or uncorrected word substitutions Although every attempt has been made by the provider to proofread this document, occasional misspellings and typographical errors may still be present Due to the previous pandemic, and the use of personal protective equipment (PPE) This may decrease voice recognition accuracy Inadvertent sheet folder errors may occur Plan Of Treatment Pending Test Test Name Order Date CT Scan : Sinuses 08/22/2018 Chest X-ray PA and lateral 03/29/2018 Thyroid Peroxidase (TPO) Ab 05/18/2022 Microalb/Creat Ratio, [facility] Lipid Panel 10/19/2017 Lipid Panel 12/16/2020 Comp. Metabolic Panel (14) 12/16/2020 CT ABDOMEN W/O CONTRAST 07/20/2021 CBC 12/16/2020 CBC 10/19/2017 Chem-Comprehensive 10/19/2017 Urinalysis 12/16/2020 Danny Machine 03/29/2018 25OH VITAMIN D 04/23/2022 CBC (COMPLETE BLOOD COUNT) 07/30/2019 CBC (COMPLETE BLOOD COUNT) 07/08/2020 CBC (COMPLETE BLOOD COUNT) WITH DIFF 08/ COMPREHENSIVE METABOLIC PANEL 07/08/2020 COMPREHENSIVE METABOLIC PANEL 07/30/2019 COMPREHENSIVE METABOLIC PANEL 04/23/2022 HEMOGLOBIN A1C 07/30/2019 HEMOGLOBIN A1C 07/08/2020 HEMOGLOBIN A1C 04/23/2022 HEMOGLOBIN A1C 10/19/2017 LIPID PANEL 04/23/2022 LIPID PANEL 07/08/2020 LIPID PANEL 07/30/2019 T4, TOTAL 05/18/2022 T4, TOTAL 06/07/2024 TSH WITH REFLEX TO FT4 04/23/2022 URINALYSIS W/REFLEX CULTURE 04/23/2022 URINALYSIS, COMPLETE 07/08/2020 URINALYSIS, COMPLETE 07/30/2019 Thyroglobulin Antibody 05/18/2022 CT Chest w/o Contrast 05/10/2018 VITAMIN B12 02/05/2025 FREE T4 05/18/2022 THYROGLOBULIN 05/18/2022 LIPID PANEL, STANDARD 02/05/2025 LIPID PANEL, STANDARD 06/06/2024 COMPREHENSIVE METABOLIC PANEL 06/06/2024 COMPREHENSIVE METABOLIC PANEL 10/08/2024 COMPREHENSIVE METABOLIC PANEL 02/05/2025 BASIC METABOLIC PANEL 02/05/2025 CBC (INCLUDES DIFF/PLT) 02/05/2025 CBC (INCLUDES DIFF/PLT) 10/08/2024 CBC (INCLUDES DIFF/PLT) 06/06/2024 URINALYSIS, COMPLETE 06/06/2024 URINALYSIS, COMPLETE 02/05/2025 HEMOGLOBIN A1c 02/05/2025 HEMOGLOBIN A1c 06/06/2024 T4 (THYROXINE), TOTAL 10/08/2024 TSH 06/06/2024 TSH 10/08/2024 TSH 02/05/2025 VITAMIN D,25-OH,TOTAL,IA 06/06/2024 CT Low Dose Lung [...] CULTURE 05/23/2023 Next Appt Details Provider Name:SOUMYA MANCIARachelle, 2025 02:30:00 PM, [address], [place], [address], Provider Name:SOUMYA BENÍTEZSASHA, 08/26/2025 11:00:00 AM, [address], [facility] [address], [place], [address], Insurance Providers Payer Name Payer Address Payer Phone Subscriber Number Group Number Insured Name Patient Relationship to Insured Coverage Start Date Coverage End Date [employer] or Options [address] [place] [id number] SHANTA CHAPA Self - patient is the insured Medical (General) History Medical History History ICD Code depression anxiety asthma fibromyalgia rheumatoid arthritis Surgical History Surgery Date(Month/Year) breast implants colonoscopy 2016 normal oral surgery sinus surgery neck surgery 10/13/20
--- OUTSIDE RECORDS SUMMARY | 2025-04-19 12:55 | XMS_ITS | Clinical Summary ---
Author Organization [facility] Address [address] [place] [address] Care Team Providers Care Documentation Coordinator Name Role Phone Lionel Platt MD Primary Care Provider [phone] Social History Tobacco Use Types Packs/Day Years Used Date Smoking Tobacco: Never Assessed Sex and Gender Information Value Date Recorded Sex Assigned at Not on file Gender Identity Not on file Sexual Orientation Not on file Plan of Treatment Health Maintenance Due Date Last Done Comments Hepatitis B Vaccines (1 of 3 - 3-dose series) 1965 Hepatitis C Screening 1965 COVID-19 Vaccine (#1) 01/19/1966 Depression Screening 1977 Preventative Health Evaluation 1983 DTap / Tdap / Td (1 - Tdap) 1984 Cervical Cancer Screening (Pap Smear) 1986 Colon Cancer Screening (Colonoscopy) 2010 Breast Cancer Screening (Mammogram) 2015 Shingrix-Zoster Vaccine (1 o f 2) 2015 Influenza Vaccine (#1) 2025 0, 10/30/2019 Pneumococcal Vaccine Aged Out No long er eligible based on patient's age to complete this topic RSV Ped < 20 months Aged Out No longe r eligible based on patient's age to complete this topic Care Teams Documentation Coordinator Relationship Specialty Start Date End Date Lionel Platt MD [address] [place] [id number] PCP - General Internal Medicine 10/08/20
[2025-04-19 13:08] VITALS: BP 146/76; PULSE 78; O2SAT 99; BMI 22.9
--- NOTE | 2025-04-19 13:08 | A.OFFVIS_ITS ---
Vital Signs 04/19/25 13:08 Height 5 ft 4 in Weight 133 lb 2.547 oz BMI 22.9 BP 146/76 H Blood Pressure Location Lt brachial Position Sitting Pulse 78 Pulse Source Pulse Oximeter Pulse Oximetry (%) 99 Oxygen Delivery Method Room Air Intake Visit Reasons: OA Intake Note: Patient presents for follow up on OA. Patient states she is still in a lot of pain. Allergies No Known Allergies Allergy (Verified 04/19/25 13:10) Medication List - Last Reconciled 04/19/25 by Jojo Back MD albuterol sulfate 90 mcg/actuation 2 puffs inhalation Q4-6H PRN budesonide-formoterol 80-4.5 mcg/actuation (Symbicort) 2 puffs inhalation bupropion HCl SR 150 mg PO BID cetirizine (Zyrtec) 5 mg PO DAILY PRN cholecalciferol (vitamin D3) (Vitamin D3) 50 mcg PO DAILY clonazepam 2 mg PO BEDTIME cyclosporine 0.05% (Restasis) 1 drp ophthalmic (eye) BID fluticasone propionate 50 mcg/actuation intranasal metoprolol succinate ER 25 mg PO DAILY neomycin-polymyxin B-dexameth 3.5 mg/g-10,000 unit/g-0.1 % ophthalmic (eye) omeprazole 40 mg PO DAILY tizanidine 2 mg PO TID PRN tramadol 50 mg PO DAILY trazodone 100 mg PO BEDTIME PRN venlafaxine ER 75 mg PO QAM venlafaxine ER 150 mg PO QAM zolpidem ER 12.5 mg PO BEDTIME PRN HPI Comments Details: Patient is a 59-year-old female current everyday smoker with hypertension c/b CAD, hyperlipidemia, depression, history of cocaine abuse complicated by septal perforation, tachycardia on metoprolol, hematuria, and fibromyalgia here today for follow up Interval History: Patient last seen 09/13/24 - New patient visit - C/o whole body pain - Exam consistent with OA and fibromyalgia - Started on tramadol Today, - On tramadol 50 mg daily, asking to increase to 2 tablets - Did not help joint pain - Took a friend's oxycodone which helped her pain - Had XRs done at [facility] but results not seen - Still complaining of polyarticular joint pain Rheumatologic History: Initial History: Patient is a 59-year-old female current everyday smoker with hypertension c/b CAD, hyperlipidemia, depression, history of cocaine abuse complicated by septal perforation, tachycardia on metoprolol, hematuria, and fibromyalgia here today to establish care. Patient complains of whole body pain. - hands: sometimes fingers will tighten up - Muscles: get muscle contraction - Knees: make noise and hurt. - Back - Feet Currently taking care of her elderly mom from [place]. This has been difficult for her and causes her significant stress Current Rheumatology Medication(s): Tramadol 50mg daily [facility] Medical History (Updated 09/13/24 @ 16:23 by Jojo Back MD) Fibromyalgia Osteoarthritis of knees, bilateral Review of Systems Const All systems reviewed & are unremarkable except as noted in HPI and below Physical Exam Exam Exam: Vital signs reviewed Physical Examination CONSTITUITIONAL Patient alert and cooperative. Well appearing and in no apparent painful distress HEENT Conjunctiva and sclera clear. No lymphadenopathy. Whistling sound coming from nasal passage indicating septal perforation MSK Hands * Right Hand: Able to make a fist. No swelling or tenderness to palpation of these joints. * Left Hand: Able to make a fist. No swelling or tenderness to palpation of these joints. * Mild Herbedens nodes noted bilaterally Wrists * Right Wrist: Full ROM. 70 degrees of wrist flexion, 80 degrees of wrist extension. No swelling or TTP * Left Wrist: Full ROM. 70 degrees of wrist flexion, 80 degrees of wrist extension. No swelling or TTP Elbows * Right Elbow: Full ROM. No swelling or TTP. No TTP of the medial and lateral epicondyles * Left Elbow: Full ROM. No swelling or TTP. No TTP of the medial and lateral epicondyles Shoulders * Right shoulder: Full ROM. No swelling noted. No TTP of the AC joint, subacromial bursa or posterior shoulder * Left shoulder: Full ROM. No swelling noted. No TTP of the AC joint, subacromial bursa or posterior shoulder Hip bursa: Tenderness to palpation bilaterally Knees * Right knee: Full ROM. No swelling noted. No TTP of the knee joint lie or pes anserine bursa * Left knee: Full ROM. No swelling noted. No TTP of the knee joint lie or pes anserine bursa. Ankles * Right ankle: Good ankle dorsiflexion and plantar flexion. No swelling. No TTP of the ankle joint * Left ankle: Good ankle dorsiflexion and plantar flexion. No swelling. No TTP of the ankle joint Feet * Right foot: Negative squeeze test * Left foot: Negative squeeze test Tender points? * Tenderness to palpation of the bilateral trapezius, supraspinatus, anterior costochondral junctions, bilateral suboccipital muscle insertions SKIN No rashes Vital Signs: Last Vital Signs Pulse 78 04/19/25 13:08 BP 146/76 H 04/19/25 13:08 Pulse Ox 99 04/19/25 13:08 Oxygen Delivery Method Room Air 04/19/25 13:08 BMI result Body Mass Index 22.9 Results Reviewed Results Reviewed: XR reports reviewed on patient's phone Assessment & Plan Assessment & Plan (1) Fibromyalgia: Code(s): M79.7 - Fibromyalgia Category: Medical Plan: #Fibromyalgia Patient is a 59 y.o. female with fibromyalgia here today for follow up No improvement on the tramadol 50mg daily, will increase to 100mg bid Plan - Tramadol 100mg bid - RTC 6 months - Labs before visit: CBC, CMP, ESR, CRP Plan I spent 20 minutes reviewing the record and labs, taking a history, examining the patient, discussing the treatment plan, ordering diagnostic work up and documenting in the medical record Orders: Orders Complete Blood Count Auto Diff 6 Months M. - Fibromyalgia C Reactive Protein 6 Months . - Fibromyalgia Comprehensive Met. Panel 6 Months . - Fibromyalgia Erythrocyte Sedimentation Rate 6 Months .7 - Fibromyalgia Medications: New tramadol 100 mg (2 x 50 mg) PO BID 120 tabs 5RF pain 30 days M.7 - Fibromyal ena Discontinued tramadol Discontinued Reason: Doctor's Order 50 mg PO DAILY 90 tabs 1RF M17.0 - Bilateral primary osteoarthritis of knee, M79.7 - Fibromyalgia Coding Level of Care Code Est Pt Level 3 (48023) Diagnoses Fibromyalgia M79.7
== END 2025-04-19 13:43 | disposition home or self-care (01) ==
LOC: HO.RHES 12:51
PROVIDERS: PCP Internal Medicine; Visit Provider Student in an Organized Health Care Education/Training Program
DX: M79.7 Fibromyalgia (principal)
CPT/HCPCS: 99213

== ENCOUNTER → 2025-04-19 12:51 | Outpatient (BNVA) | payer OTHER, SELFPAY | PROVIDERS: PCP Internal Medicine; Visit Provider Student in an Organized Health Care Education/Training Program | DX: M79.7 Fibromyalgia (principal) | CPT/HCPCS: 99212 ==